=== PATIENT | female | born 1935 | race Caucasian/White ===

== ENCOUNTER 2018-11-03 14:45 | Inpatient (IN) | payer MEDICARE, OTHER ==
[~2018-11-03] VITALS: Ht 167.6 cm; Wt 50.8 kg
[~2018-11-03 14:45] MED LIST: BAYER CHEWABLE81 MG PO; HYDROCHLOROTH12.5 M1 PO; HYDROCODONE-APA1 TAB PO; MAG-OX 400 MG400 MG PO; PRINIVIL20 MG PO; REGLAN5 MG; REGLAN5 MG PO; ZOFRAN4 MG PO
[2018-11-03 15:36] LABS: BASOPHILS 0 % (0-2); EOSINOPHILS 0 % (0-7); HEMATOCRIT 30.4 % (36.0-48.0); HEMOGLOBIN 10.6 g/dL (12-16); IMMATURE GRANULOCYTES 0.5 % (0-5); LYMPHOCYTES 6.4 % (15-50); MCH 29.7 pg (26.0-34.0); MCHC 34.9 g/dL (31.0-37.0); MCV 85.2 fL (80.0-100.0); MEAN PLATELET VOLUME 10.8 fL (7.4-10.4); MONOCYTES 4.7 % (2-11); NEUTROPHILS 88.4 % (40-80); PLATELET COUNT 229 10x3/uL (130-400); RBC 3.57 10x6/uL (4.00-5.40); RDW 13.3 % (11.5-14.5)
[2018-11-03 15:57] LABS: ALBUMIN 3.2 g/dL (3.4-5.0); ANION GAP 15.5 mmol/L (8-16); BILIRUBIN - TOTAL 0.55 mg/dL (0.2-1.3); CALCIUM 8.3 mg/dL (8.5-10.1); CARBON DIOXIDE 21.4 mmol/L (21.0-32.0); CREATININE - SERUM 2.9 mg/dL (0.6-1.3); POTASSIUM - SERUM 3.9 mmol/L (3.5-5.1); PROTEIN - SERUM 5.6 g/dL (6.4-8.2)
[2018-11-03 17:36] VITALS: BP 125/56
[2018-11-03 21:01] VITALS: BP 164/70
[2018-11-04] VITALS (7 sets, daily range): BP systolic 110–179; BP diastolic 44–84
[2018-11-04 00:24] LABS: APPEARANCE CLEAR (CLEAR); BILIRUBIN NEGATIVE (NEGATIVE); COLOR YELLOW (YELLOW); GLUCOSE NEGATIVE (NEGATIVE); KETONE SMALL mg/dL (NEGATIVE); NITRITE NEGATIVE (NEGATIVE); PROTEIN NEGATIVE (NEGATIVE); UROBILINOGEN NORMAL (NORMAL)
[2018-11-04 00:25] LABS: EPITHELIAL CELLS OCC /hpf (0-5); RED CELLS - URINE 0-5 /hpf (0-5); WHITE CELLS - URINE NSEEN /hpf (0-5)
[2018-11-04 07:12] LABS: HEMATOCRIT 28.7 % (36.0-48.0); HEMOGLOBIN 9.9 g/dL (12-16); MCH 29.3 pg (26.0-34.0); MCHC 34.5 g/dL (31.0-37.0); MCV 84.9 fL (80.0-100.0); PLATELET COUNT 229 10x3/uL (130-400); RBC 3.38 10x6/uL (4.00-5.40); RDW 13.4 % (11.5-14.5); WBC 23.2 10x3/uL (4.8-10.8)
[2018-11-04 07:25] LABS: ALBUMIN 2.7 g/dL (3.4-5.0); ANION GAP 12.7 mmol/L (8-16); BILIRUBIN - TOTAL 0.36 mg/dL (0.2-1.3); CALCIUM 8.3 mg/dL (8.5-10.1); CREATININE - SERUM 2.3 mg/dL (0.6-1.3); MAGNESIUM - SERUM 1.8 mg/dL (1.8-2.4); PHOSPHOROUS 3.6 mg/dL (2.5-4.9); POTASSIUM - SERUM 3.7 mmol/L (3.5-5.1); PROTEIN - SERUM 5.1 g/dL (6.4-8.2); THYROID STIMULATING HORMONE 0.2 uIU/mL (0.36-3.74)
[2018-11-04 08:29] LABS: LYMPHOCYTES 6 % (15-50); MONOCYTES 5 % (2-11); NEUTROPHILS 89 % (40-80); PLATELET ESTIMATE NORMAL
[2018-11-04 08:30] LABS: HYPOCHROMASIA OCC
[2018-11-05] VITALS (7 sets, daily range): BP systolic 101–140; BP diastolic 44–79; BMI 18.0
[2018-11-05 06:49] LABS: BASOPHILS 0.1 % (0-2); EOSINOPHILS 0.1 % (0-7); HEMATOCRIT 23.2 % (36.0-48.0); IMMATURE GRANULOCYTES 0.6 % (0-5); LYMPHOCYTES 6.6 % (15-50); MCH 28.9 pg (26.0-34.0); MCHC 33.6 g/dL (31.0-37.0); MCV 85.9 fL (80.0-100.0); MEAN PLATELET VOLUME 10.8 fL (7.4-10.4); MONOCYTES 6.7 % (2-11); NEUTROPHILS 85.9 % (40-80); RDW 13.5 % (11.5-14.5)
[2018-11-05 06:55] LABS: WBC 13.8 10x3/uL (4.8-10.8)
[2018-11-05 06:56] LABS: HEMOGLOBIN 7.8 g/dL (12-16); PLATELET COUNT 155 10x3/uL (130-400)
[2018-11-05 07:00] LABS: ALBUMIN 2.1 g/dL (3.4-5.0); BILIRUBIN - TOTAL 0.4 mg/dL (0.2-1.3); CALCIUM 7.7 mg/dL (8.5-10.1); CARBON DIOXIDE 19.5 mmol/L (21.0-32.0); CREATININE - SERUM 1.7 mg/dL (0.6-1.3); POTASSIUM - SERUM 3.5 mmol/L (3.5-5.1)
[2018-11-05 17:45] LABS: % SATURATION 9 % (15-55); IRON 19 ug/dl (35-150); TOTAL IRON BIND CAPACITY 201 ug/dl (260-445); UNSAT IRON BIND CAPACITY 182 ug/dl (150-375)
[2018-11-06] VITALS (9 sets, daily range): BP systolic 109–164; BP diastolic 50–75; Ht 167.6 cm; Wt 50.8 kg
[2018-11-06 06:26] LABS: BASOPHILS 0.1 % (0-2); EOSINOPHILS 0.6 % (0-7); IMMATURE GRANULOCYTES 1.3 % (0-5); LYMPHOCYTES 8.9 % (15-50); MCH 30.1 pg (26.0-34.0); MCHC 34.8 g/dL (31.0-37.0); MCV 86.4 fL (80.0-100.0); MEAN PLATELET VOLUME 10.6 fL (7.4-10.4); MONOCYTES 5.9 % (2-11); NEUTROPHILS 83.2 % (40-80); PLATELET COUNT 135 10x3/uL (130-400); RDW 13.5 % (11.5-14.5)
[2018-11-06 06:58] LABS: HEMATOCRIT 33.6 % (36.0-48.0); HEMOGLOBIN 11.7 g/dL (12-16); RBC 3.89 10x6/uL (4.00-5.40)
[2018-11-06 06:59] LABS: ANION GAP 12.1 mmol/L (8-16); BILIRUBIN - TOTAL 0.81 mg/dL (0.2-1.3); CALCIUM 7.7 mg/dL (8.5-10.1); CREATININE - SERUM 1.4 mg/dL (0.6-1.3); POTASSIUM - SERUM 3.1 mmol/L (3.5-5.1); PROTEIN - SERUM 3.8 g/dL (6.4-8.2)
--- NOTE | 2018-11-06 13:21 | MORECARE ---
CASE MANAGEMENT DISCHARGE SUMMARY PATIENT: WILFRID DE LA CRUZ UNIT: [id number] ADM DATE: 11/03/18 AGE: 83 : 33 SEX: F ROOM/BED: D.2238 AUTHOR: TERRELL,DOC PHYSICIAN: REFERRING PHYSICIAN: SHALOM OGDEN MD DATE OF SERVICE: 11/06/18 Discharge Plan Patient Name: WILFRID DE LA CRUZ Facility: [facility]:[place] : 1935 Planned Disposition: Home Anticipated Discharge Date: Discharge Date: Expected LOS: Initial Reviewer: [email or web address] Initial Review Date: 11/03/2018 Generated: 11/06/18 2:21 pm Comments DCP- Discharge Planning Updated by [email or web address]: Whitley Cohen on 11/06/18 12:[address] Patient Name: WILFRID DE LA CRUZ Admission Status: Elective Accout number: [id number] Admission Date: 11-03-2018 : 1935 Admission Diagnosis:SEPSIS, UNSPECIFIED ORGANISM Attending: SHALOM OGDEN Current LOS: 3 Anticipated DC Date: Planned Disposition: Home Primary Insurance: MEDICARE A & B Discharge Planning Comments: CM MET WITH PT AFTER OBTAINING VERBAL CONSENT TO DO CM ASSESSMENT ABOUT CM ROLE AND ANY DC NEEDS.. EDUCATED PT ON ALL RESOURCES LIKE HH, REHABS, AND ANY DME THEY MIGHT NEED. DENIES ANY CM NEEDS AT THIS TIME. WILL RETURN HOME AND PT STATES THAT IS A SAFE DC PLAN. HAS WALKER AND WC IN THE HOME CM WILL CONTINUE TO FOLLOW GRAND DAUGHTER ROMÁN WILL SKEIN WINDER AT [place] [phone] Systems Developer: Whitley Cohen DCPIA - Discharge Planning Initial Assessment Updated by [email or web address]: Whitley Cohen on 11/06/18 1:14 pm * Is the patient Alert and Oriented? Yes * How many steps to enter\exit or inside your home? NA * PCP LUIS ALFREDO * Pharmacy [facility] * Preadmission Environment Home with Family * ADLs Independent * List name and contact numbers for known caregivers / representatives who currently or will assist patient after discharge: ROMÁN SINHAALYSA [phone] * Verbal permission to speak to the caregivers and representatives has been obtained from the patient. N/A * Community resources currently utilized None * Additional services required to return to the preadmission environment? No * Can the patient safely return to the preadmission environment? Yes * Has this patient been hospitalized within the prior 30 days at any hospital? No Patient Name: WILFRID DE LA CRUZ Page [phone] at 1321 All edits/amendments must be made on the electronic document DICTATION DATE: 11/06/181319 ACCELERATOR SYSTEMS DIRECTOR: OSWALD 11/06/180 RPT#: [id number] DC DATE: STATUS: ADM IN [facility] [address] [place] [address] END OF REPORT
[2018-11-07] VITALS (7 sets, daily range): BP systolic 115–179; BP diastolic 45–87
[2018-11-07 06:52] LABS: ALBUMIN 1.9 g/dL (3.4-5.0); BILIRUBIN - TOTAL 0.41 mg/dL (0.2-1.3); CALCIUM 7.6 mg/dL (8.5-10.1); CARBON DIOXIDE 20.3 mmol/L (21.0-32.0); CREATININE - SERUM 1.2 mg/dL (0.6-1.3); POTASSIUM - SERUM 3.3 mmol/L (3.5-5.1); PROTEIN - SERUM 3.9 g/dL (6.4-8.2)
[2018-11-07 07:14] LABS: BASOPHILS 0.3 % (0-2); EOSINOPHILS 1.7 % (0-7); HEMATOCRIT 33.8 % (36.0-48.0); HEMOGLOBIN 11.4 g/dL (12-16); IMMATURE GRANULOCYTES 2.4 % (0-5); LYMPHOCYTES 10.9 % (15-50); MCH 30.6 pg (26.0-34.0); MCHC 33.7 g/dL (31.0-37.0); MEAN PLATELET VOLUME 10.6 fL (7.4-10.4); MONOCYTES 7.9 % (2-11); NEUTROPHILS 76.8 % (40-80); PLATELET COUNT 121 10x3/uL (130-400); RBC 3.72 10x6/uL (4.00-5.40); RDW 14.2 % (11.5-14.5); WBC 7.5 10x3/uL (4.8-10.8)
[2018-11-07 07:20] LABS: MCV 90.9 fL (80.0-100.0)
[2018-11-07 09:14] LABS: FOLATE (FOLIC ACID) - SERUM 14.8 ng/mL (>3.0)
[2018-11-08 05:02] VITALS: BP 160/72
[2018-11-08 05:40] LABS: BASOPHILS 0.2 % (0-2); EOSINOPHILS 2.4 % (0-7); HEMATOCRIT 33.7 % (36.0-48.0); HEMOGLOBIN 11.8 g/dL (12-16); IMMATURE GRANULOCYTES 4.2 % (0-5); MCH 30.8 pg (26.0-34.0); MEAN PLATELET VOLUME 10.1 fL (7.4-10.4); MONOCYTES 10.2 % (2-11); PLATELET COUNT 130 10x3/uL (130-400); RBC 3.83 10x6/uL (4.00-5.40); WBC 5.9 10x3/uL (4.8-10.8)
[2018-11-08 05:55] LABS: ALBUMIN 2.1 g/dL (3.4-5.0); ANION GAP 12.1 mmol/L (8-16); BILIRUBIN - TOTAL 0.34 mg/dL (0.2-1.3); CALCIUM 7.9 mg/dL (8.5-10.1); CARBON DIOXIDE 20.7 mmol/L (21.0-32.0); CREATININE - SERUM 1.2 mg/dL (0.6-1.3); POTASSIUM - SERUM 3.8 mmol/L (3.5-5.1); PROTEIN - SERUM 4.8 g/dL (6.4-8.2)
[2018-11-08 09:30] VITALS: BP 192/84
[2018-11-08 12:45] VITALS: BP 167/79
[2018-11-08 17:11] VITALS: BP 170/86
[2018-11-08 20:02] VITALS: BP 180/80
[2018-11-09] VITALS: BP 158/68
[2018-11-09 04:00] VITALS: BP 127/63
[2018-11-09 06:42] LABS: ANION GAP 10.3 mmol/L (8-16); CALCIUM 7.9 mg/dL (8.5-10.1); CARBON DIOXIDE 22.7 mmol/L (21.0-32.0); CREATININE - SERUM 1.1 mg/dL (0.6-1.3)
[2018-11-09 08:40] VITALS: BP 158/64
[2018-11-09 13:16] VITALS: BP 167/64
[2018-11-09 16:53] VITALS: BP 173/74
[2018-11-09 20:00] VITALS: BP 157/75
[2018-11-10] VITALS: BP 171/89
[2018-11-10 04:00] VITALS: BP 160/80
[2018-11-10 06:34] LABS: BASOPHILS 0.1 % (0-2); EOSINOPHILS 1.1 % (0-7); HEMATOCRIT 34.3 % (36.0-48.0); HEMOGLOBIN 11.7 g/dL (12-16); IMMATURE GRANULOCYTES 2.5 % (0-5); LYMPHOCYTES 10.4 % (15-50); MCHC 34.1 g/dL (31.0-37.0); MCV 87.9 fL (80.0-100.0); MEAN PLATELET VOLUME 10.4 fL (7.4-10.4); MONOCYTES 9.9 % (2-11); PLATELET COUNT 125 10x3/uL (130-400); WBC 8.2 10x3/uL (4.8-10.8)
[2018-11-10 06:57] LABS: ALBUMIN 2.4 g/dL (3.4-5.0); ANION GAP 15.7 mmol/L (8-16); BILIRUBIN - DIRECT 0.08 mg/dL (0.00-0.30); BILIRUBIN - INDIRECT 0.24 mg/dL (0.00-1.00); BILIRUBIN - TOTAL 0.32 mg/dL (0.2-1.3); CALCIUM 8.1 mg/dL (8.5-10.1); CARBON DIOXIDE 18.6 mmol/L (21.0-32.0); POTASSIUM - SERUM 4.3 mmol/L (3.5-5.1); PROTEIN - SERUM 4.4 g/dL (6.4-8.2)
[2018-11-10 09:13] VITALS: BP 190/82
[2018-11-10 14:18] VITALS: BP 145/64
[2018-11-10 17:28] VITALS: BP 158/62
[2018-11-10 19:53] VITALS: BP 165/78
[2018-11-11] VITALS: BP 176/79
[2018-11-11 04:00] VITALS: BP 188/98
[2018-11-11 06:27] LABS: ANION GAP 13.2 mmol/L (8-16); CARBON DIOXIDE 21.1 mmol/L (21.0-32.0); CREATININE - SERUM 1.1 mg/dL (0.6-1.3); POTASSIUM - SERUM 4.3 mmol/L (3.5-5.1)
[2018-11-11 06:30] LABS: HEMATOCRIT 34.9 % (36.0-48.0); HEMOGLOBIN 11.9 g/dL (12-16); MCH 30.2 pg (26.0-34.0); MCHC 34.1 g/dL (31.0-37.0); MCV 88.6 fL (80.0-100.0); MEAN PLATELET VOLUME 9.9 fL (7.4-10.4); PLATELET COUNT 145 10x3/uL (130-400); RBC 3.94 10x6/uL (4.00-5.40); RDW 13.7 % (11.5-14.5); WBC 10.6 10x3/uL (4.8-10.8)
[2018-11-11 07:30] LABS: LYMPHOCYTES 2 % (15-50); MONOCYTES 5 % (2-11); NEUTROPHILS 85 % (40-80); PLATELET ESTIMATE NORMAL
[2018-11-11 08:45] VITALS: BP 144/61
[2018-11-11 15:23] LABS: ALBUMIN 2.6 g/dL (3.4-5.0); BILIRUBIN - TOTAL 0.32 mg/dL (0.2-1.3); CALCIUM 8.4 mg/dL (8.5-10.1); CREATININE - SERUM 1.2 mg/dL (0.6-1.3); POTASSIUM - SERUM 4.4 mmol/L (3.5-5.1); PROTEIN - SERUM 5.5 g/dL (6.4-8.2)
[2018-11-11 15:25] LABS: ANION GAP 11.7 mmol/L (8-16); CARBON DIOXIDE 27.7 mmol/L (21.0-32.0)
[2018-11-11 15:32] LABS: CKMB 0.4 U/L (0.0-3.6); CREATINE KINASE 24 UL (21-215); TROPONIN-I 0.033 ng/mL (0.000-0.060)
[2018-11-11 17:39] VITALS: BP 159/89
[2018-11-11 20:00] VITALS: BP 138/53
[2018-11-11 23:41] LABS: CKMB 0.3 U/L (0.0-3.6); CREATINE KINASE 16 UL (21-215); TROPONIN-I 0.031 ng/mL (0.000-0.060)
[2018-11-12] VITALS: BP 131/60
[2018-11-12 03:00] VITALS: BP 118/77
[2018-11-12 05:43] LABS: BASOPHILS 0.1 % (0-2); EOSINOPHILS 0.9 % (0-7); HEMATOCRIT 31.5 % (36.0-48.0); HEMOGLOBIN 10.5 g/dL (12-16); IMMATURE GRANULOCYTES 1.5 % (0-5); LYMPHOCYTES 11.8 % (15-50); MCH 30.1 pg (26.0-34.0); MCHC 33.3 g/dL (31.0-37.0); MCV 90.3 fL (80.0-100.0); MEAN PLATELET VOLUME 10.1 fL (7.4-10.4); MONOCYTES 9.9 % (2-11); NEUTROPHILS 75.8 % (40-80); PLATELET COUNT 118 10x3/uL (130-400); RBC 3.49 10x6/uL (4.00-5.40); RDW 14.2 % (11.5-14.5)
[2018-11-12 05:56] LABS: WBC 6.7 10x3/uL (4.8-10.8)
[2018-11-12 06:13] LABS: ANION GAP 9.7 mmol/L (8-16); CALCIUM 7.9 mg/dL (8.5-10.1); CARBON DIOXIDE 25.6 mmol/L (21.0-32.0); CREATININE - SERUM 1.1 mg/dL (0.6-1.3); POTASSIUM - SERUM 4.3 mmol/L (3.5-5.1)
[2018-11-12 07:38] LABS: CKMB 0.4 U/L (0.0-3.6); CREATINE KINASE 13 UL (21-215); TROPONIN-I 0.043 ng/mL (0.000-0.060)
[2018-11-12 09:10] VITALS: BP 94/55
[2018-11-12] MEDS ORDERED: FLORAJEN3 CAPS460 MG PO (11:45)
[2018-11-12] MEDS ORDERED: SODIUM BICARBO650 MG PO (11:45)
[2018-11-12] MEDS ORDERED: CARAFATE1 G PO (11:46)
[2018-11-12] MEDS ORDERED: PROTONIX40 MG PO (11:46)
[2018-11-12] MEDS ORDERED: FLAGYL500 MG PO (11:47)
[2018-11-12] MEDS ORDERED: ZOFRAN ODT4 MG/UDTAB PO (11:47)
[2018-11-12] MEDS ORDERED: Levaquin PO (11:49)
--- NOTE | 2018-11-12 12:29 | MORECARE ---
CASE MANAGEMENT DISCHARGE SUMMARY PATIENT: WILFRID DE LA CRUZ UNIT: [id number] ADM DATE: 11/03/18 AGE: 83 : 33 SEX: F ROOM/BED: D.2238 AUTHOR: TERRELL,DOC PHYSICIAN: REFERRING PHYSICIAN: SHALOM OGDEN MD DATE OF SERVICE: 11/12/18 Discharge Plan Patient Name: WILFRID DE LA CRUZ Facility: [facility]:[place] : 1935 Planned Disposition: Home Anticipated Discharge Date: Discharge Date: Expected LOS: Initial Reviewer: [email or web address] Initial Review Date: 11/03/2018 Generated: 11/12/18 1:29 pm Comments DCP- Discharge Planning Updated by [email or web address]: Darlin Henriquez on 11/12/18 11:[address] Received discharge orders. She is going home today with [facility] ([facility]). I called and spoke to Bernardo and clinical faxed. They will see her tomorrow. Patient states she does have a walker, but does not use it. I instructed her to use it for safety, voices understanding. CM will continue to follow and assist with discharge planning/needs. DCP- Discharge Planning Updated by [email or web address]: Whitley Cohen on 11/06/18 12:[address] Patient Name: WILFRID DE LA CRUZ Admission Status: Elective Accout number: [id number] Admission Date: 11-03-2018 : 1935 Admission Diagnosis:SEPSIS, UNSPECIFIED ORGANISM Attending: SHALOM OGDEN Current LOS: 3 Anticipated DC Date: Planned Disposition: Home Primary Insurance: MEDICARE A & B Discharge Planning Comments: CM MET WITH PT AFTER OBTAINING VERBAL CONSENT TO DO CM ASSESSMENT ABOUT CM ROLE AND ANY DC NEEDS.. EDUCATED PT ON ALL RESOURCES LIKE HH, REHABS, AND ANY DME THEY MIGHT NEED. DENIES ANY CM NEEDS AT THIS TIME. WILL RETURN HOME AND PT STATES THAT IS A SAFE DC PLAN. HAS WALKER AND WC IN THE HOME CM WILL CONTINUE TO FOLLOW GRAND DAUGHTER ROMÁN WILL INSULATION PACKER AT DC [phone] R D Manager: Whitley Cohen DCPIA - Discharge Planning Initial Assessment Updated by [id number]: Whitley Cohen on 11/06/18 1:14 pm * Is the patient Alert and Oriented? Yes * How many steps to enter\exit or inside your home? NA * PCP LUIS ALFREDO * Pharmacy [facility] * Preadmission Environment Home with Family * ADLs Independent * List name and contact numbers for known caregivers / representatives who currently or will assist patient after discharge: ROMÁN GABRIEL [phone] * Verbal permission to speak to the caregivers and representatives has been obtained from the patient. N/A * Community resources currently utilized None * Additional services required to return to the preadmission environment? No * Can the patient safely return to the preadmission environment? Yes * Has this patient been hospitalized within the prior 30 days at any hospital? No Coverage Notice Reviewer: [email or web address] Henriquez Notice Issued Date-Time: 11/12/2018 12:15 Notice Type: IM Discharge Notice Notice Delivered To: Patient Relationship to Patient: Self Boatbuilder Apprentice Wood Name: Delivery Method: HAND - Hand Delivered Deanna Days: Prior Verbal Notification: Recipient Understood Notice: Yes Recipient Signature: Yes Med Rec Note Co-signed by Attending: Coverage Notice Comment: IMM explained, signed, given, copy placed in MR Reviewer: [id number] Eyad Henriquez Notice Issued Date-Time: 11/12/2018 12:15 Notice Type: Patient Choice Letter Notice Delivered To: Patient Relationship to Patient: Boatbuilder Apprentice Wood Name: Delivery Method: HAND - Hand Delivered Deanna Days: Prior Verbal Notification: Recipient Understood Notice: Yes Recipient Signature: Yes Med Rec Note Co-signed by Attending: Coverage Notice Comment: CAITLIN for [facility] Last DP export: 11/06/18 12:21 pm Patient Name: WILFRID DE LA CRUZ Page [phone] at 1229 All edits/amendments must be made on the electronic document DICTATION DATE: 11/12/18 1228 PRESCRIPTIONIST: OSWALD 11/12/18 1228 RPT#: [id number] DC DATE: STATUS: ADM IN [facility] [address] [place] [address] END OF REPORT
--- NOTE | 2018-11-12 12:37 | MORECARE ---
CASE MANAGEMENT DISCHARGE SUMMARY PATIENT: WILFRID DE LA CRUZ UNIT: [id number] ADM DATE: 11/03/18 AGE: 83 : 33 SEX: F ROOM/BED: D.2238 AUTHOR: TERRELL,DOC PHYSICIAN: REFERRING PHYSICIAN: SHALOM OGDEN MD DATE OF SERVICE: 11/12/18 Discharge Plan Patient Name: WILFRID DE LA CRUZ Facility: [facility]:[place] : 1935 Planned Disposition: Home Anticipated Discharge Date: Discharge Date: Expected LOS: Initial Reviewer: [id number] Initial Review Date: 11/03/2018 Generated: 11/12/18 1:37 pm Comments DCP- Discharge Planning Updated by [email or web address]: Darlin Henriquez on 11/12/18 11:[address] Received discharge orders. She is going home today with [facility] ([facility]). I called and spoke to Bernardo and clinical faxed. They will see her tomorrow. Patient states she does have a walker, but does not use it. I instructed her to use it for safety, voices understanding. CM will continue to follow and assist with discharge planning/needs. DCP- Discharge Planning Updated by [id number]: Whitley Cohen on 11/06/18 12:[address] Patient Name: WILFRID DE LA CRUZ Admission Status: Elective Accout number: [id number] Admission Date: 11-03-2018 : 1935 Admission Diagnosis:SEPSIS, UNSPECIFIED ORGANISM Attending: SHALOM OGDEN Current LOS: 3 Anticipated DC Date: Planned Disposition: Home Primary Insurance: MEDICARE A & B Discharge Planning Comments: CM MET WITH PT AFTER OBTAINING VERBAL CONSENT TO DO CM ASSESSMENT ABOUT CM ROLE AND ANY DC NEEDS.. EDUCATED PT ON ALL RESOURCES LIKE HH, REHABS, AND ANY DME THEY MIGHT NEED. DENIES ANY CM NEEDS AT THIS TIME. WILL RETURN HOME AND PT STATES THAT IS A SAFE DC PLAN. HAS WALKER AND WC IN THE HOME CM WILL CONTINUE TO FOLLOW GRAND DAUGHTER ROMÁN WILL DRESSAGE JUDGE AT DC [phone] Technical Photographer: Whitley Cohen DCPIA - Discharge Planning Initial Assessment Updated by [id number]: Whitley Cohen on 11/06/18 1:14 pm * Is the patient Alert and Oriented? Yes * How many steps to enter\exit or inside your home? NA * PCP LUIS ALFREDO * Pharmacy [facility] * Preadmission Environment Home with Family * ADLs Independent * List name and contact numbers for known caregivers / representatives who currently or will assist patient after discharge: ROMÁN GABRIEL [phone] * Verbal permission to speak to the caregivers and representatives has been obtained from the patient. N/A * Community resources currently utilized None * Additional services required to return to the preadmission environment? No * Can the patient safely return to the preadmission environment? Yes * Has this patient been hospitalized within the prior 30 days at any hospital? No External Providers [facility] Next Contact Date: Service Request Date: Service Type: Resolution: Reviewer: Comments: Coverage Notice Reviewer: [id number] Henriquez Notice Issued Date-Time: 11/12/2018 12:15 Notice Type: IM Discharge Notice Notice Delivered To: Patient Relationship to Patient: Self Customer Service Sales Associate Name: Delivery Method: HAND - Hand Delivered Deanna Days: Prior Verbal Notification: Recipient Understood Notice: Yes Recipient Signature: Yes Med Rec Note Co-signed by Attending: Coverage Notice Comment: IMM explained, signed, given, copy placed in MR Reviewer: [id number] Eyad Henriquez Notice Issued Date-Time: 11/12/2018 12:15 Notice Type: Patient Choice Letter Notice Delivered To: Patient Relationship to Patient: Customer Service Sales Associate Name: Delivery Method: HAND - Hand Delivered Deanna Days: Prior Verbal Notification: Recipient Understood Notice: Yes Recipient Signature: Yes Med Rec Note Co-signed by Attending: Coverage Notice Comment: CAITLIN for [facility] Last DP export: 11/12/18 11:29 a Patient Name: WILFRID DE LA CRUZ Page [phone] at 1237 All edits/amendments must be made on the electronic document DICTATION DATE: 11/12/18 1236 OCCUPATIONAL HEALTH PHYSIOTHERAPIST: OSWALD 11/12/18 1236 RPT#: [id number] [place] DATE: STATUS: ADM IN [facility] [address] [place] [address] END OF REPORT
--- NOTE | 2018-11-13 10:10 | MORECARE ---
CASE MANAGEMENT DISCHARGE SUMMARY PATIENT: WILFRID DE LA CRUZ UNIT: [id number] ADM DATE: 11/03/18 AGE: 83 : 33 SEX: F ROOM/BED: D.2238 AUTHOR: TERRELL,DOC PHYSICIAN: REFERRING PHYSICIAN: SHALOM OGDEN MD DATE OF SERVICE: 11/13/18 Discharge Plan Patient Name: WILFRID DE LA CRUZ Facility: [facility]:[place] : 1935 Planned Disposition: Home Anticipated Discharge Date: Discharge Date: 11/12/2018 Expected LOS: 0 Initial Reviewer: [id number] Initial Review Date: 11/03/2018 Generated: 11/13/18 11:09 am Comments DCP- Discharge Planning Updated by [email or web address]: Darlin Henriquez on 11/12/18 11:[address] Received discharge orders. She is going home today with [facility] ([facility]). I called and spoke to Bernardo and clinical faxed. They will see her tomorrow. Patient states she does have a walker, but does not use it. I instructed her to use it for safety, voices understanding. CM will continue to follow and assist with discharge planning/needs. DCP- Discharge Planning Updated by [id number]: Whitley Cohen on 11/06/18 12:[address] Patient Name: WILFRID DE LA CRUZ Admission Status: Elective Accout number: [id number] Admission Date: 11-03-2018 : 1935 Admission Diagnosis:SEPSIS, UNSPECIFIED ORGANISM Attending: SHALOM OGDEN Current LOS: 3 Anticipated DC Date: Planned Disposition: Home Primary Insurance: MEDICARE A & B Discharge Planning Comments: CM MET WITH PT AFTER OBTAINING VERBAL CONSENT TO DO CM ASSESSMENT ABOUT CM ROLE AND ANY DC NEEDS.. EDUCATED PT ON ALL RESOURCES LIKE HH, REHABS, AND ANY DME THEY MIGHT NEED. DENIES ANY CM NEEDS AT THIS TIME. WILL RETURN HOME AND PT STATES THAT IS A SAFE DC PLAN. HAS WALKER AND WC IN THE HOME CM WILL CONTINUE TO FOLLOW GRAND DAUGHTER ROMÁN WILL NEWS PRODUCTION ASSISTANT AT DC [phone] Pharmaceutical Officer: Whitley Cohen DCPIA - Discharge Planning Initial Assessment Updated by [id number]: Whitley Cohen on 11/06/18 1:14 pm * Is the patient Alert and Oriented? Yes * How many steps to enter\exit or inside your home? NA * PCP [facility] ALFREDO * Pharmacy [facility] * Preadmission Environment Home with Family * ADLs Independent * List name and contact numbers for known caregivers / representatives who currently or will assist patient after discharge: ROMÁN GABRIEL [phone] * Verbal permission to speak to the caregivers and representatives has been obtained from the patient. N/A * Community resources currently utilized None * Additional services required to return to the preadmission environment? No * Can the patient safely return to the preadmission environment? Yes * Has this patient been hospitalized within the prior 30 days at any hospital? No Coverage Notice Reviewer: [id number] Eyad Henriquez Notice Issued Date-Time: 11/12/2018 12:15 Notice Type: IM Discharge Notice Notice Delivered To: Patient Relationship to Patient: Self Financial Aids Officer Name: Delivery Method: HAND - Hand Delivered Deanna Days: Prior Verbal Notification: Recipient Understood Notice: Yes Recipient Signature: Yes Med Rec Note Co-signed by Attending: Coverage Notice Comment: IMM explained, signed, given, copy placed in MR Reviewer: [id number] Henriquez Notice Issued Date-Time: 11/12/2018 12:15 Notice Type: Patient Choice Letter Notice Delivered To: Patient Relationship to Patient: Financial Aids Officer Name: Delivery Method: HAND - Hand Delivered Deanna Days: Prior Verbal Notification: Recipient Understood Notice: Yes Recipient Signature: Yes Med Rec Note Co-signed by Attending: Coverage Notice Comment: CAITLIN for [facility] Last DP export: 11/12/18 11:37 a Patient Name: WILFRID DE LA CRUZ Page [phone] at 1010 All edits/amendments must be made on the electronic document DICTATION DATE: 11/13/18 1009 SAFETY TEACHER: OSWALD 11/13/18 1009 RPT#: [id number] DC DATE:11/12/18 STATUS: DIS IN [facility] [address] [facility] [place] [address] END OF REPORT
== END 2018-11-12 15:15 | disposition home health service (06) | DRG 871 ==
LOC: D.MS 14:45
PROVIDERS: Internal Medicine Nephrology; ADMIT Family Medicine; ATTEND Family Medicine
DX: A41.9 Sepsis, unspecified organism (principal); K85.90 Acute pancreatitis without necrosis or infection, unspecified; E43 Unspecified severe protein-calorie malnutrition; N17.9 Acute kidney failure, unspecified; R11.2 Nausea with vomiting, unspecified; I12.9 Hypertensive chronic kidney disease with stage 1 through stage 4 chronic kidney disease, or unspecified chronic kidney disease; N18.9 Chronic kidney disease, unspecified; K43.5 Parastomal hernia without obstruction or gangrene

== ENCOUNTER 2019-05-18 11:03 | Inpatient (IN) | payer MEDICARE, OTHER ==
[~2019-05-18] VITALS: Ht 167.6 cm; Wt 44.9 kg
[~2019-05-18 11:03] MED LIST changes: +CARAFATE1 G PO; +FLAGYL500 MG PO; +FLORAJEN3 CAPS460 MG PO; +Levaquin PO; +PROTONIX40 MG PO; +SODIUM BICARBO650 MG PO; +ZOFRAN ODT4 MG/UDTAB PO
[2019-05-18 11:42] LABS: BASOPHILS 0.1 % (0-2); EOSINOPHILS 0.2 % (0-7); HEMATOCRIT 41.9 % (36.0-48.0); IMMATURE GRANULOCYTES 0.7 % (0-5); LYMPHOCYTES 10.9 % (15-50); MCH 31.3 pg (26.0-34.0); MCHC 33.4 g/dL (31.0-37.0); MCV 93.5 fL (80.0-100.0); MEAN PLATELET VOLUME 10.4 fL (7.4-10.4); NEUTROPHILS 84.1 % (40-80); RBC 4.48 10x6/uL (4.00-5.40); RDW 13.9 % (11.5-14.5); WBC 9.5 10x3/uL (4.8-10.8)
[2019-05-18 11:48] LABS: PLATELET COUNT 162 10x3/uL (130-400)
[2019-05-18 12:11] LABS: ALBUMIN 3.8 g/dL (3.4-5.0); ANION GAP 23.1 mmol/L (8-16); BILIRUBIN - TOTAL 0.42 mg/dL (0.2-1.3); CALCIUM 8.6 mg/dL (8.5-10.1); CARBON DIOXIDE 13.5 mmol/L (21.0-32.0); CREATININE - SERUM 4.4 mg/dL (0.6-1.3); MAGNESIUM - SERUM 1.6 mg/dL (1.8-2.4); PROTEIN - SERUM 7.5 g/dL (6.4-8.2)
[2019-05-18 12:15] LABS: POTASSIUM - SERUM 2.6 mmol/L (3.5-5.1)
[2019-05-18 12:33] VITALS: BP 146/71
--- NOTE | 2019-05-18 12:57 | NUR ---
PT COLOSTOMY BAG LEAKING, PT CLEANED UP, NEW WAFER AND BAG APPLIED TO COLOSTOMY, CLEAN LINENS AND GOWN APPLIED, DENIES NEEDS, CON'T TO MONITOR.
[2019-05-18 13:09] VITALS: BP 130/60
--- NOTE | 2019-05-18 13:31 | NUR ---
RECEIVED REPORT FROM LUCAS IN ER AT THIS TIME. PATIENT TO UNIT SOON.
--- NOTE | 2019-05-18 13:45 | NUR ---
PATIENT ARRIVED TO UNIT VIA [facility], PATIENTS DAUGHTER AND GRANDDAUGHTER AT BEDSIDE. PATIENT IS ALERT/ORIENTED BUT IS A POOR HISTORIAN. PATIENT WITH IV FLUIDS AT 125ML/HOUR ORDERED TO RIGHT FA. RESP EVEN AND UNLABORED. NO DISTRESS. DENIES NEEDS AT THIS TIME.
[2019-05-18] MEDS ORDERED: REMERON15 MG PO (14:02)
--- NOTE | 2019-05-18 14:30 | NUR ---
ADMISSION ASSESSMENT COMPLETE AT THIS TIME.
--- NOTE | 2019-05-18 15:50 | NUR ---
ELECTROLYTE PROTOCOL INITIATED ON PATIENT FOR LOW K+ AFTER SPEAKING TO CHANA IN PHARMACY AND QUESTIONING HER RECEIVING ELEC. PROTOCOL AND RECEIVING THE IV FLUIDS HANGING THAT HAVE 40 MEQ OF K+ IN THEM. PER PHARMACY, IT IS SAFE FOR PATIENT TO RECEIVE BOTH TO GET HER K+ LEVEL WHERE IS NEEDS TO BE. THANKED CHANA FOR HIS ASSSISTANCE WITH THIS.
[2019-05-18 16:44] VITALS: BP 130/54
[2019-05-18 16:52] VITALS: BP 130/54; BMI 16.1
--- NOTE | 2019-05-18 19:15 | NUR ---
RECEIVED REPORT, WILL ASSUME CARE OF PT, SLEEPING NO DISTRESS NOTICED, BED IS LOW, SRX2, CALL LIGHT IN REACH, WILL CONTINUE PLAN OF CARE
[2019-05-18 20:00] VITALS: BP 106/47
[2019-05-19] VITALS: BP 104/46
[2019-05-19 04:00] VITALS: BP 106/49
[2019-05-19 05:45] LABS: APPEARANCE CLEAR (CLEAR); BILIRUBIN NEGATIVE (NEGATIVE); COLOR YELLOW (YELLOW); GLUCOSE NEGATIVE (NEGATIVE); KETONE NEGATIVE (NEGATIVE); NITRITE NEGATIVE (NEGATIVE); PROTEIN NEGATIVE (NEGATIVE); UROBILINOGEN NORMAL (NORMAL)
[2019-05-19 05:50] LABS: BASOPHILS 0.2 % (0-2); EOSINOPHILS 1.2 % (0-7); IMMATURE GRANULOCYTES 0.2 % (0-5); LYMPHOCYTES 27.1 % (15-50); MCH 30.3 pg (26.0-34.0); MCHC 32.9 g/dL (31.0-37.0); MONOCYTES 7.8 % (2-11); NEUTROPHILS 63.5 % (40-80); PLATELET COUNT 141 10x3/uL (130-400); RDW 13.7 % (11.5-14.5)
[2019-05-19 06:06] LABS: WBC 5.1 10x3/uL (4.8-10.8)
[2019-05-19 06:07] LABS: HEMATOCRIT 30.1 % (36.0-48.0); HEMOGLOBIN 9.9 g/dL (12-16); RBC 3.27 10x6/uL (4.00-5.40)
[2019-05-19 06:12] LABS: BILIRUBIN - TOTAL 0.31 mg/dL (0.2-1.3); CALCIUM 7.3 mg/dL (8.5-10.1); MAGNESIUM - SERUM 3.3 mg/dL (1.8-2.4); POTASSIUM - SERUM 4.7 mmol/L (3.5-5.1)
[2019-05-19 06:13] LABS: ALBUMIN 2.3 g/dL (3.4-5.0); ANION GAP 16.5 mmol/L (8-16); CARBON DIOXIDE 18.2 mmol/L (21.0-32.0); PROTEIN - SERUM 4.6 g/dL (6.4-8.2)
--- NOTE | 2019-05-19 07:38 | NUR ---
PATIENT IS RESTING AT THIS TIME. AWAKE AND ALERT AND RESTING ON HER SIDE. DENIES ANY NEEDS AT THIS TIME.
[2019-05-19 09:00] VITALS: BP 108/50
--- NOTE | 2019-05-19 10:43 | NUR ---
CHANGING IV FLUIDS TO 1/2 NS ORDERED
[2019-05-19 12:00] VITALS: BP 181/78
--- NOTE | 2019-05-19 13:53 | NUR ---
PATIENT IS SITTING UP IN BED. SHE STATES THAT SHE WOULD LIKE TO GO HOME SOON. SHE DENIES ANY NEEDS AT THIS TIME.
[2019-05-19 18:11] VITALS: BP 124/53
--- NOTE | 2019-05-19 19:15 | NUR ---
RECEIVED REPORT, WILL ASSUME CARE OF PT, TALKING ON PHONE, DENIES ANY NEEDS, BED IS LOW, SRX2, CALL LIGHT IN REACH, WILL CONTINUE PLAN OF CARE
[2019-05-19 20:00] VITALS: BP 135/58
[2019-05-20] VITALS: BP 99/44
--- NOTE | 2019-05-20 03:59 | NUR ---
I have reviewed this patient and I concur with the Shift Assessment completed by the Licensed Practical Nurse today this shift.
[2019-05-20 04:00] VITALS: BP 116/51
[2019-05-20 05:27] LABS: BASOPHILS 0.2 % (0-2); EOSINOPHILS 1.6 % (0-7); HEMATOCRIT 32.6 % (36.0-48.0); HEMOGLOBIN 10.8 g/dL (12-16); IMMATURE GRANULOCYTES 0.6 % (0-5); LYMPHOCYTES 22.4 % (15-50); MCH 30.8 pg (26.0-34.0); MCHC 33.1 g/dL (31.0-37.0); MCV 92.9 fL (80.0-100.0); MEAN PLATELET VOLUME 10.7 fL (7.4-10.4); MONOCYTES 7.5 % (2-11); NEUTROPHILS 67.7 % (40-80); PLATELET COUNT 144 10x3/uL (130-400); RBC 3.51 10x6/uL (4.00-5.40); RDW 14.1 % (11.5-14.5); WBC 5.1 10x3/uL (4.8-10.8)
[2019-05-20 06:40] LABS: ALBUMIN 2.7 g/dL (3.4-5.0); BILIRUBIN - TOTAL 0.23 mg/dL (0.2-1.3); CALCIUM 7.8 mg/dL (8.5-10.1); CARBON DIOXIDE 16.8 mmol/L (21.0-32.0); CREATININE - SERUM 2.7 mg/dL (0.6-1.3); PROTEIN - SERUM 5.1 g/dL (6.4-8.2)
[2019-05-20 07:14] LABS: POTASSIUM - SERUM 2.8 mmol/L (3.5-5.1)
--- NOTE | 2019-05-20 07:30 | NUR ---
PT SITTING UP. RR EVEN AND UNLABORED. DENIES NEEDS OR PAIN AT THIS TIME. ASSESSMENT COMPLETE. BED IN LOWEST POSITION. CALL LIGHT WITHIN REACH. WILL CONTINUE TO MONITOR.
[2019-05-20 11:13] VITALS: BP 135/63
--- NOTE | 2019-05-20 12:33 | NUR ---
I have reviewed this patient and I concur with the Shift Assessment completed by the Licensed Practical Nurse today this shift.
[2019-05-20 14:57] VITALS: BP 149/68
[2019-05-20 15:15] VITALS: BMI 15.9
[2019-05-20 17:33] VITALS: BP 138/66
--- NOTE | 2019-05-20 17:42 | NUR ---
OT NOTE: PT COMPLETED UE AROM EXS. PT COMPLETED BED MOB TASKS WITH SPV/I. PT COMPLETED FACE WASHING WITH SET UP. THANK YOU,AYSHA SNEED
[2019-05-20 20:34] VITALS: BP 110/56
[2019-05-21 01:10] VITALS: BP 128/63
[2019-05-21 05:30] LABS: BASOPHILS 0.2 % (0-2); EOSINOPHILS 1.9 % (0-7); HEMATOCRIT 31.1 % (36.0-48.0); HEMOGLOBIN 10.2 g/dL (12-16); IMMATURE GRANULOCYTES 0.4 % (0-5); LYMPHOCYTES 24.6 % (15-50); MCH 30.6 pg (26.0-34.0); MCHC 32.8 g/dL (31.0-37.0); MCV 93.4 fL (80.0-100.0); MEAN PLATELET VOLUME 10.5 fL (7.4-10.4); MONOCYTES 6.2 % (2-11); NEUTROPHILS 66.7 % (40-80); PLATELET COUNT 149 10x3/uL (130-400); RBC 3.33 10x6/uL (4.00-5.40); WBC 5.3 10x3/uL (4.8-10.8)
[2019-05-21 05:32] LABS: ALBUMIN 2.3 g/dL (3.4-5.0); ANION GAP 17.6 mmol/L (8-16); BILIRUBIN - TOTAL 0.28 mg/dL (0.2-1.3); CALCIUM 7.7 mg/dL (8.5-10.1); CARBON DIOXIDE 16.5 mmol/L (21.0-32.0); CREATININE - SERUM 2.7 mg/dL (0.6-1.3); POTASSIUM - SERUM 3.1 mmol/L (3.5-5.1); PROTEIN - SERUM 4.7 g/dL (6.4-8.2)
[2019-05-21 05:58] VITALS: BP 124/57
--- NOTE | 2019-05-21 06:01 | NUR ---
I have reviewed this patient and I concur with the Shift Assessment completed by the Licensed Practical Nurse today this shift.
--- NOTE | 2019-05-21 07:31 | NUR ---
PATIENT IS RESING AT THIS TIME. DENIES ANY NEEDS.
[2019-05-21 09:31] VITALS: BP 126/62
--- NOTE | 2019-05-21 10:54 | NUR ---
PATIENT IS SITTING UP IN BED, LOOKING AT MAGAZINES AND TALKING ON THE PHONE. SHE DENIES ANY NEEDS AT THIS TIME.
[2019-05-21 12:00] VITALS: BP 126/61
[2019-05-21 15:05] VITALS: Ht 167.6 cm; Wt 44.9 kg
[2019-05-21 16:00] VITALS: BP 130/65
--- NOTE | 2019-05-21 16:50 | NUR ---
OT NOTE: PT DOING WELL; IN ROOM AMBULATION WITH SBA. ABLE TO PERFORM TOILETING AND SIMPLE GROOMING WITH SBA. JIM GASPAR, OTR/L
--- NOTE | 2019-05-21 18:36 | NUR ---
OT NOTE: PT COMPLETED BED MOB WITH SBA. PT COMPLETED ADL MOB WITH SBA/CGA. PT COMPLETED ORAL HYGIENE WITH SET UP. PT COMPLETED HAIR GROOMING WITH SET UP. THANK YOU, AYSHA SNEED
[2019-05-21 18:41] LABS: MAGNESIUM - SERUM 1.9 mg/dL (1.8-2.4); POTASSIUM - SERUM 3.4 mmol/L (3.5-5.1)
[2019-05-21 20:00] VITALS: BP 122/55
[2019-05-22] VITALS: BP 127/64
--- NOTE | 2019-05-22 03:19 | NUR ---
I have reviewed this patient and I concur with the Shift Assessment completed by the Licensed Practical Nurse today this shift.
[2019-05-22 04:00] VITALS: BP 114/56
--- NOTE | 2019-05-22 06:26 | NUR ---
IV RESITED TO LEFT FOREARM, 20 GUAGE, FIRST ATTEMPT, PT TOLERATED WELL. IV FLUIDS RESUMED.
[2019-05-22 06:54] LABS: BASOPHILS 0.2 % (0-2); EOSINOPHILS 2.9 % (0-7); HEMATOCRIT 32.5 % (36.0-48.0); HEMOGLOBIN 10.5 g/dL (12-16); IMMATURE GRANULOCYTES 0.6 % (0-5); MCH 30.5 pg (26.0-34.0); MCHC 32.3 g/dL (31.0-37.0); MCV 94.5 fL (80.0-100.0); MONOCYTES 7.4 % (2-11); NEUTROPHILS 64.9 % (40-80); PLATELET COUNT 130 10x3/uL (130-400); RBC 3.44 10x6/uL (4.00-5.40); RDW 14.1 % (11.5-14.5); WBC 5.1 10x3/uL (4.8-10.8)
--- NOTE | 2019-05-22 07:10 | NUR ---
REPORT RECEIVED FROM DROP MACHINE OPERATOR AND PATIENT CARE ASSUMED. PATIENT LAYING IN BED ON BACK WITH EYES CLOSED AND BREATHING EVENLY. PATIENT IS STABLE AND VSS. WILL CONTINUE WITH PLAN OF CARE. SR UP X 2 BED IN LOW POSITION AND CALL LIGHT IN REACH.
[2019-05-22 07:17] LABS: ALBUMIN 2.2 g/dL (3.4-5.0); ANION GAP 14.3 mmol/L (8-16); BILIRUBIN - TOTAL 0.24 mg/dL (0.2-1.3); CALCIUM 7.7 mg/dL (8.5-10.1); CARBON DIOXIDE 18.1 mmol/L (21.0-32.0); MAGNESIUM - SERUM 1.6 mg/dL (1.8-2.4); POTASSIUM - SERUM 3.4 mmol/L (3.5-5.1); PROTEIN - SERUM 4.6 g/dL (6.4-8.2)
[2019-05-22 07:18] LABS: CREATININE - SERUM 1.9 mg/dL (0.6-1.3)
[2019-05-22 09:55] VITALS: BP 127/58
--- NOTE | 2019-05-22 10:36 | NUR ---
PATIENT SITTING UP IN BED WATCHING TV. PATIENT IS STABLE AND VSS. PATIENT DENIES ANY NEEDS OR PAIN. WILL CONTINUE TO MONITOR. SR UP X 2 BED IN LOW POSITION AND CALL LIGHT IN REACH.
--- NOTE | 2019-05-22 11:18 | MORECARE ---
CASE MANAGEMENT DISCHARGE SUMMARY PATIENT: WILFRID DE LA CRUZ UNIT: [id number] ADM DATE: 05/18/19 AGE: 83 : 33 SEX: F ROOM/BED: D.2131 AUTHOR: ROSIE TEJADA PHYSICIAN: REFERRING PHYSICIAN: ANTOINETTE JOHNSTON MD DATE OF SERVICE: 05/22/19 Discharge Plan Patient Name: WILFRID DE LA CRUZ [facility] [facility] 1935 Planned Disposition: Home Health Service Anticipated Discharge Date: 05/24/19 Discharge Date: Expected LOS: 6 Initial Reviewer: [email or web address] Initial Review Date: 05/18/2019 Generated: 05/22/19 12:18 pm DCPIA - Discharge Planning Initial Assessment Updated by [id number]: eKlli Wadsworth on 05/22/19 11:15 am * Is the patient Alert and Oriented? Yes * How many steps to enter\exit or inside your home? None * PCP Dr. Bueno * [facility] * Preadmission Environment Home with Family * ADLs Independent * Equipment Bedside Commode Cane Rolling Walker Wheelchair * List name and contact numbers for known caregivers / representatives who currently or will assist patient after discharge: Myrna George - daughter - [phone] * Verbal permission to speak to the caregivers and representatives has been obtained from the patient. Yes * Community resources currently utilized None * Additional services required to return to the preadmission environment? Yes * Can the patient safely return to the preadmission environment? Yes * Has this patient been hospitalized within the prior 30 days at any hospital? No Patient Name: WILFRID DE LA CRUZ Page 40811 at 1118 All edits/amendments must be made on the electronic document DICTATION DATE: 05/22/191117 RADIO MAINTAINER: OSWALD 05/22/191117 RPT#: [id number] DC DATE: STATUS: ADM IN [facility] [address] [place] [address] END OF REPORT
--- NOTE | 2019-05-22 11:25 | MORECARE ---
CASE MANAGEMENT DISCHARGE SUMMARY PATIENT: WILFRID DE LA CRUZ UNIT: [id number] ADM DATE: 05/18/19 AGE: 83 : 33 SEX: F ROOM/BED: D.9756 AUTHOR: TERRELLDOC PHYSICIAN: REFERRING PHYSICIAN: ANTOINETTE JOHNSTON MD DATE OF SERVICE: 05/22/19 Discharge Plan Patient Name: WILFRID DE LA CRUZ Facility: [facility]:[place] : 1935 Planned Disposition: Home Health Service Anticipated Discharge Date: 05/24/19 Discharge Date: Expected LOS: 6 Initial Reviewer: [id number] Initial Review Date: 05/18/2019 Generated: 05/22/19 12:25 pm Comments DCP- Discharge Planning Updated by [email or web address]: Kelli Wadsworth on 05/22/19 10:[address] DC PLAN: Return home with family and [facility] [place]. ANTICIPATED DC NEEDS: [facility]erral to [facility] - completed. CM met with patient to complete initial dc planning assessment. CM educated patient on the CM role and verbal consent given by patient to complete assessment. CM verified patient's address, phone number, and emergency contact phone numbers. Patient lives at home and her granddaughter and her 2 kids live with her. At discharge patient plans to return home and feels this is a safe discharge. CM discussed availability of home health, rehab services, and medical equipment. Patient stated she has had home health out of [facility] in the past and would like HH again. Order received for home health services. CM provided patient a list of home health agencies . She would like to use [facility] as she has had them in the past. Patient signed the patient choice form with their first choice being [facility]. CM left a signed copy of the choice form with the patient and placed a signed copy on the patient's chart. CM spoke to [facility] and faxed referral to their office. Patient reports her daughter will transport her home at time of discharge. CM will continue to follow and will assist as needed with dc plans/needs . Kelli aWdsworth RN, [facility] DCPIA - Discharge Planning Initial Assessment Updated by [email or web address]: Kelli Wadsworth on 05/22/19 11:15 am * Is the patient Alert and Oriented? Yes * How many steps to enter\exit or inside your home? None * PCP Dr. Bueno * Pharmacy [facility] * Preadmission Environment Home with Family * ADLs Independent * Equipment Bedside Commode Cane Rolling Walker Wheelchair * List name and contact numbers for known caregivers / representatives who currently or will assist patient after discharge: Myrna George - daughter - [phone] * Verbal permission to speak to the caregivers and representatives has been obtained from the patient. Yes * Community resources currently utilized None * Additional services required to return to the preadmission environment? Yes * Can the patient safely return to the preadmission environment? Yes * Has this patient been hospitalized within the prior 30 days at any hospital? No External Providers External Provider: [facility] Next Contact Date: Service Request Date: Service Type: Resolution: Reviewer: Comments: Last DP export: 05/22/19 10:18 Patient Name: WILFRID DE LA CRUZ Page [phone] at 1125 All edits/amendments must be made on the electronic document DICTATION DATE: 05/22/19 112 FITNESS AND WELLNESS COORDINATOR: OSWALD 05/22/19 112 RPT#: [id number] DC DATE: STATUS: ADM IN [facility] [address] [place] [address] END OF REPORT
[2019-05-22 13:34] VITALS: BP 150/70
--- NOTE | 2019-05-22 14:56 | NUR ---
OT NOTE: PT DOING WELL. BED MOB WITH SPV; IN ROOM AMBULATION WITH SPV..PT ALSO ABLE TO MANAGE HER IV POLE. TOILETING WITH SPV. PT WANTING TO GO HOME. STATES THAT SHE FEELS BETTER BUT WOULD FEEL EVEN BETTER BEING AT HOME. JIM GASPAR, OTR/L
--- NOTE | 2019-05-22 15:12 | NUR ---
PATIENT IS STABLE AND UNCHANGED. PATIENT SITTING UP IN BED WATCHING TV. PATIENT DENIES ANY NEEDS OR PAIN . WILL CONTINUE TO MONITOR. SR UP X 2 BED IN LOW POSITION AND CALL LIGHT IN REACH.
--- NOTE | 2019-05-22 15:33 | NUR ---
OT NOTE: PT COMPLETED IN ROOM MOB WITH SBA/CGA. PT COMPLETED DYNAMIC STANDING WITH SBA/CGA. PT COMPLETED GROOMING TASKS STANDING AT SINK WITH SBA. THANK YOU, AYSHA SNEED
[2019-05-22 17:30] VITALS: BP 116/58
--- NOTE | 2019-05-22 18:24 | NUR ---
PATIENT LAYING IN BED ON BACK WITH HOB ELEVATED 20 DEGREES. PATIENT VISITING WITH FAMILY AT BS. PATIENT IS STABLE AND VSS. PATIENT DENIES ANY NEEDS OR PAIN. WILL CONTINUE TO MONITOR. SR UP X 2 BED IN LOW POSITION AND CALL LIGHT IN REACH.
[2019-05-22 20:00] VITALS: BP 143/60
[2019-05-23 04:00] VITALS: BP 139/58
[2019-05-23 05:47] LABS: BASOPHILS 0.1 % (0-2); EOSINOPHILS 0.9 % (0-7); HEMATOCRIT 32.8 % (36.0-48.0); HEMOGLOBIN 10.6 g/dL (12-16); IMMATURE GRANULOCYTES 0.6 % (0-5); LYMPHOCYTES 11.7 % (15-50); MCH 30.5 pg (26.0-34.0); MCHC 32.3 g/dL (31.0-37.0); MCV 94.5 fL (80.0-100.0); MEAN PLATELET VOLUME 10.5 fL (7.4-10.4); MONOCYTES 6.6 % (2-11); NEUTROPHILS 80.1 % (40-80); PLATELET COUNT 152 10x3/uL (130-400); RBC 3.47 10x6/uL (4.00-5.40); RDW 13.9 % (11.5-14.5)
[2019-05-23 06:26] LABS: ALBUMIN 2.5 g/dL (3.4-5.0); ANION GAP 13.5 mmol/L (8-16); BILIRUBIN - TOTAL 0.31 mg/dL (0.2-1.3); CARBON DIOXIDE 19.8 mmol/L (21.0-32.0); MAGNESIUM - SERUM 1.7 mg/dL (1.8-2.4); POTASSIUM - SERUM 3.3 mmol/L (3.5-5.1); PROTEIN - SERUM 5.2 g/dL (6.4-8.2)
--- NOTE | 2019-05-23 07:53 | NUR ---
PT RESTING. RR EVEN AND UNLABORED. DENIES NEEDS OR PAIN AT THIS TIME. BED IN LOWEST POSITION. CALL LIGHT WITHIN REACH. WILL CONTINUE TO MONITOR.
[2019-05-23 08:00] VITALS: BP 159/67
[2019-05-23 11:01] LABS: % SATURATION 22 % (15-55); IRON 47 ug/dl (35-150); TOTAL IRON BIND CAPACITY 207 ug/dl (260-445); UNSAT IRON BIND CAPACITY 160 ug/dl (150-375)
[2019-05-23 11:31] LABS: PHOSPHOROUS 2.7 mg/dL (2.5-4.9); T4 THYROXIN - FREE 0.87 ng/dL (0.76-1.46); THYROID STIMULATING HORMONE 1.79 uIU/mL (0.36-3.74)
[2019-05-23 12:00] VITALS: BP 158/85
--- NOTE | 2019-05-23 13:25 | NUR ---
Nutrition Follow-up: Eating well. Noted possible d/c today. Diet: Renal PO intake: 75-100% No new wt Last BM: 05/22 Labs noted: K+ 3.3, Mg 1.7, Ca 8.0, Alb 2.5 Meds noted: MagOx, Remeron, KDur, Pepcid -Rec cardiac diet. -RD following.
[2019-05-23] MEDS ORDERED: K-DUR20 MEQ PO (14:37)
[2019-05-23] MEDS ORDERED: MAG-OX 400 MG400 MG PO (14:37)
[2019-05-23] MEDS ORDERED: PROTONIX40 MG PO (14:39)
--- NOTE | 2019-05-23 14:46 | NUR ---
OT NOTE: PT PERFORMING ALL ADLS WITHOUT ASSIST; AMB INDEP TO BATHROOM, CHAIR, ETC. WILL DC PT ON THIS DATE SECONDARY TO CONSISTENT INDEP WITH SELF CARE/MOBILITY. JIM GASPAR, OTR/L
--- NOTE | 2019-05-23 14:46 | NUR ---
OT NOTE: PT COMPLETED GROOMING TASKS WITH SPV. PT COMPLETED ADL MOB AND SIT TO STAND WITH SBA. THANK YOU,AYSHA SNEED
[2019-05-23] MEDS ORDERED: HEMOCYTE PLUS C1 CAP PO (15:12)
--- NOTE | 2019-05-23 15:36 | MORECARE ---
CASE MANAGEMENT DISCHARGE SUMMARY PATIENT: WILFRID DE LA CRUZ UNIT: [id number] ADM DATE: 05/18/19 AGE: 83 : 33 SEX: F ROOM/BED: D.8152 AUTHOR: TERRELLDOC PHYSICIAN: REFERRING PHYSICIAN: ANTOINETTE JOHNSTON MD DATE OF SERVICE: 05/23/19 Discharge Plan Patient Name: WILFRID DE LA CRUZ Facility: [facility]:[place] : 1935 Planned Disposition: Home Health Service Anticipated Discharge Date: 05/23/19 Discharge Date: Expected LOS: 5 Initial Reviewer: [email or web address] Initial Review Date: 05/18/2019 Generated: 05/23/19 4:35 pm Comments DCP- Discharge Planning Updated by [email or web address]: Kelli Wadsworth on 05/22/19 10:[address] DC PLAN: Return home with family and [facility] out of [place]. ANTICIPATED DC NEEDS: Referral to [facility] - completed. CM met with patient to complete initial dc planning assessment. CM educated patient on the CM role and verbal consent given by patient to complete assessment. CM verified patient's address, phone number, and emergency contact phone numbers. Patient lives at home and her granddaughter and her 2 kids live with her. At discharge patient plans to return home and feels this is a safe discharge. CM discussed availability of home health, rehab services, and medical equipment. Patient stated she has had home health out of [place] in the past and would like HH again. Order received for home health services. CM provided patient a list of home health agencies . She would like to use [facility] as she has had them in the past. Patient signed the patient choice form with their first choice being [facility]. CM left a signed copy of the choice form with the patient and placed a signed copy on the patient's chart. CM spoke to [facility] and faxed referral to their office. Patient reports her daughter will transport her home at time of discharge. CM will continue to follow and will assist as needed with dc plans/needs . Kelli Wadsworth RN, [facility] DCPIA - Discharge Planning Initial Assessment Updated by [email or web address]: Kelli Wadsworth on 05/22/19 11:15 am * Is the patient Alert and Oriented? Yes * How many steps to enter\exit or inside your home? None * PCP Dr. Bueno * Pharmacy [facility] * Preadmission Environment Home with Family * ADLs Independent * Equipment Bedside Commode Cane Rolling Walker Wheelchair * List name and contact numbers for known caregivers / representatives who currently or will assist patient after discharge: Myrna George - daughter - [phone] * Verbal permission to speak to the caregivers and representatives has been obtained from the patient. Yes * Community resources currently utilized None * Additional services required to return to the preadmission environment? Yes * Can the patient safely return to the preadmission environment? Yes * Has this patient been hospitalized within the prior 30 days at any hospital? No External Providers External Provider: [facility] Next Contact Date: 05/22/2019 Service Request Date: Service Type: Resolution: Reviewer: Comments: Last DP export: 05/22/19 10:25 Patient Name: WILFRID DE LA CRUZ Page [id number] at 1536 All edits/amendments must be made on the electronic document DICTATION DATE: 05/23/19 1535 BUSINESS PARTNER: OSWALD 05/23/19 1535 RPT#: [id number] DC DATE: STATUS: ADM IN [facility] [address] [place] [address] END OF REPORT
--- NOTE | 2019-05-23 15:54 | MORECARE ---
CASE MANAGEMENT DISCHARGE SUMMARY PATIENT: WILFRID DE LA CRUZ UNIT: [id number] ADM DATE: 05/18/19 AGE: 83 : 33 SEX: F ROOM/BED: D.1678 AUTHOR: TERRELL,DOC PHYSICIAN: REFERRING PHYSICIAN: ANTOINETTE JOHNSTON MD DATE OF SERVICE: 05/23/19 Discharge Plan Patient Name: WILFRID DE LA CRUZ Facility: [facility]:[place] : 1935 Planned Disposition: Home Health Service Anticipated Discharge Date: 05/23/19 Discharge Date: Expected LOS: 5 Initial Reviewer: [email or web address] Initial Review Date: 05/18/2019 Generated: 05/23/19 4:54 pm Comments DCP- Discharge Planning Updated by [email or web address]: Rafa Guy on 05/23/19 2:[address] Patient Name: WILFRID DE LA CRUZ Encounter No: [id number] : 1935 Primary Insurance: MEDICARE A & B Anticipated DC Date: 05-23-2019 Planned Disposition: Home Health Service External Planned Provider: [facility] DCP follow-up note: CM RECEIVED DISCHARGE ORDER, CALLED [facility], ENTRIKEN OFFICE, , SPOKE TO [facility] AND NOTIFIED OF DISCHARGE. PT ACCEPTED FOR HOME HEALTH ADMISSION. CM FAXED DISCHARGE INFORMATION TO [facility] AT [phone]. CM SPOKE TO PT IN ROOM REGARDING DISCHARGE PLANNING AND NEEDS, DISCUSSED AVAILABIILTY OF REHAB SERVICES AND MEDICAL EQUIPMENT. PT DENIES OTHER NEEDS AND ONLY WANTS HOME HEALTH WITH [facility]. PT'S FAMILY TO DIRECTOR WHOLESALE PT LATER THIS AFTERNOON. IMPORTANT MESSAGE FROM MEDICARE PROVIDED AND EXPLAINED. SECURITY SYSTEMS ENGINEER NURSE NOTIFIED. JENELLE West DCP- Discharge Planning Updated by [email or web address]: Kelli Wadsworth on 05/22/19 10:[address] DC PLAN: Return home with family and [facility] out of [place]. ANTICIPATED DC NEEDS: Referral to [facility] - completed. CM met with patient to complete initial dc planning assessment. CM educated patient on the CM role and verbal consent given by patient to complete assessment. CM verified patient's address, phone number, and emergency contact phone numbers. Patient lives at home and her granddaughter and her 2 kids live with her. At discharge patient plans to return home and feels this is a safe discharge. CM discussed availability of home health, rehab services, and medical equipment. Patient stated she has had home health out of [place] in the past and would like again. Order received for home health services. CM provided patient a list of home health agencies . She would like to use [facility] as she has had them in the past. Patient signed the patient choice form with their first choice being [facility] . CM left a signed copy of the choice form with the patient and placed a signed copy on the patient's chart. CM spoke to [employer] and faxed referral to their office. Patient reports her daughter will transport her home at time of discharge. CM will continue to follow and will assist as needed with dc plans/needs . Kelli Wadsworth RN, [facility] DCPIA - Discharge Planning Initial Assessment Updated by [email or web address]: Kelli Wadsworth on 05/22/19 11:15 am * Is the patient Alert and Oriented? Yes * How many steps to enter\exit or inside your home? None * PCP Dr. Bueno * Pharmacy [facility] * Preadmission Environment Home with Family * ADLs Independent * Equipment Bedside Commode Cane Rolling Walker Wheelchair * List name and contact numbers for known caregivers / representatives who currently or will assist patient after discharge: Myrna George - daughter - [phone] * Verbal permission to speak to the caregivers and representatives has been obtained from the patient. Yes * Community resources currently utilized None * Additional services required to return to the preadmission environment? Yes * Can the patient safely return to the preadmission environment? Yes * Has this patient been hospitalized within the prior 30 days at any hospital? No Coverage Notice Reviewer: [id number] - Rafa Guy Notice Issued Date-Time: 05/23/2019 14:50 Notice Type: IM Discharge Notice Notice Delivered To: Patient Relationship to Patient: Hand Molder Meat Name: Delivery Method: HAND - Hand Delivered Deanna Days: Prior Verbal Notification: Recipient Understood Notice: Yes Recipient Signature: Yes Med Rec Note Co-signed by Attending: Coverage Notice Comment: Last DP export: 05/23/19 2:35 Patient Name: WILFRID DE LA CRUZ Page [phone] at 1554 All edits/amendments must be made on the electronic document DICTATION DATE: 05/23/191553 WRONG ADDRESS CLERK: OSWALD 05/23/191553 RPT#: [id number] DC DATE: STATUS: ADM IN [facility] [address] [place] [address] END OF REPORT
--- NOTE | 2019-05-23 16:56 | NUR ---
D/C INSTRUCTIONS REVIEWED WITH PT AND FAMILY MEMBER. BOTH VERBALIZED UNDERSTANDING AND DENIED FURTHER QUESTIONS AT THIS TIME. IV D/C WITH CATHETER TIP INTACT. DRESSING PLACED OVER SITE, CDI. MONITOR REMOVED AND RETURNED TO BLOOD TESTER. PT LEFT VIA WHEELCHAIR TO PERSONAL VEHICLE WITH ALL BELONGINGS.
--- NOTE | 2019-05-23 17:27 | NUR ---
I have reviewed this patient and I concur with the Shift Assessment completed by the Licensed Practical Nurse today this shift.
== END 2019-05-23 17:35 | disposition home health service (06) | DRG 682 ==
LOC: D.ER 11:03 → D.M2 12:31
PROVIDERS: Family Medicine; Internal Medicine; ADMIT Internal Medicine Nephrology; ATTEND Internal Medicine Nephrology
DX: N17.9 Acute kidney failure, unspecified (principal); E43 Unspecified severe protein-calorie malnutrition; Z68.1 Body mass index [BMI] 19.9 or less, adult; E87.6 Hypokalemia; E83.42 Hypomagnesemia; E86.0 Dehydration; I12.9 Hypertensive chronic kidney disease with stage 1 through stage 4 chronic kidney disease, or unspecified chronic kidney disease; N18.9 Chronic kidney disease, unspecified; D63.1 Anemia in chronic kidney disease

== ENCOUNTER 2019-07-01 10:36 | Outpatient (CLI) | payer MEDICARE ==
[~2019-07-01] VITALS: Ht 167.6 cm; Wt 45.5 kg
[~2019-07-01 10:36] MED LIST changes: +HEMOCYTE PLUS C1 CAP PO; +K-DUR20 MEQ PO; +REMERON15 MG PO
[2019-07-01 11:08] VITALS: Ht 167.6 cm; Wt 45.5 kg
--- NOTE | 2019-07-01 13:24 | NUR ---
PT IS RESTING QUIETLY IN BED. DENIES PAIN/NEEDS AT THIS TIME. INCREASED INFUSION RATE TO 250 ML/HR PER ORDER. WILL CONTINUE TO MONITOR.
--- NOTE | 2019-07-01 17:37 | NUR ---
PT IS RESTING QUIETLY IN BED. DENIES PAIN/NEEDS AT THIS TIME. WILL CONTINUE TO MONITOR.
--- NOTE | 2019-07-01 18:01 | NUR ---
PT LEFT UNIT AMBULATING W/ YANET AT 1801
== END 2019-07-01 18:01 | disposition home or self-care (01) ==
LOC: D.OPS 10:36
PROVIDERS: ATTEND Internal Medicine
DX: N18.5 Chronic kidney disease, stage 5 (principal); E86.9 Volume depletion, unspecified; E87.2 Acidosis

== ENCOUNTER 2020-02-22 16:05 | Inpatient (IN) | payer MEDICARE ==
[~2020-02-22] VITALS: Ht 167.6 cm; Wt 44.5 kg
[2020-02-22 17:05] LABS: BASOPHILS 0.1 % (0-2); EOSINOPHILS 0.1 % (0-7); HEMOGLOBIN 12.5 g/dL (12-16); IMMATURE GRANULOCYTES 0.5 % (0-5); LYMPHOCYTES 3.8 % (15-50); MCH 29.7 pg (26.0-34.0); MCHC 34.7 g/dL (31.0-37.0); MCV 85.5 fL (80.0-100.0); MEAN PLATELET VOLUME 11.4 fL (7.4-10.4); MONOCYTES 4.6 % (2-11); NEUTROPHILS 90.9 % (40-80); PLATELET COUNT 178 10x3/uL (130-400); RBC 4.21 10x6/uL (4.00-5.40); RDW 14.9 % (11.5-14.5)
[2020-02-22 17:12] LABS: ALBUMIN 3.4 g/dL (3.4-5.0); BILIRUBIN - TOTAL 0.65 mg/dL (0.2-1.3); CARBON DIOXIDE 13.1 mmol/L (21.0-32.0); CREATININE - SERUM 5.6 mg/dL (0.6-1.3); PROTEIN - SERUM 6.8 g/dL (6.4-8.2)
[2020-02-22 17:15] LABS: CALCIUM 6.5 mg/dL (8.5-10.1); POTASSIUM - SERUM 2.1 mmol/L (3.5-5.1)
[2020-02-22 17:18] VITALS: BP 164/91
[2020-02-22 17:46] LABS: BILIRUBIN NEGATIVE (NEGATIVE); KETONE NEGATIVE (NEGATIVE); NITRITE NEGATIVE (NEGATIVE); UROBILINOGEN NORMAL (NORMAL)
[2020-02-22 17:48] LABS: BACTERIA FEW /hpf (NEGATIVE); RED CELLS - URINE OCC /hpf (0-5); WHITE CELLS - URINE RARE /hpf (NEGATIVE)
--- NOTE | 2020-02-22 18:15 | NUR ---
PT'S FAMILY MEMBER TO CONTACT [phone]
[2020-02-22 18:57] VITALS: BP 138/54
[2020-02-22 21:21] VITALS: BP 150/90
--- NOTE | 2020-02-22 21:56 | NUR ---
RECEIVED TO ROOM VIA [facility] FROM ER. ALERT,ORIENTED. IV TO RFA INTACT WITHOUT REDNESS OR EDEMA NOTED. ABRAISION TO LEFT SHOULDER WITH BANDAID INTACT. COLOSTOMY TO MID ABD WITH APPLIANCE INTACT. REDNESS NOTED ABOVE SITE. ORIENTED TO ROOM. CL IN REACH. SOLANGE RAZA ON FOR DAVID
[2020-02-22 22:07] VITALS: BP 156/71; BMI 15.8
[2020-02-23 00:10] VITALS: BP 114/49
--- NOTE | 2020-02-23 02:38 | NUR ---
I have reviewed this patient and I concur with the Shift Assessment completed by the Licensed Practical Nurse today this shift.
[2020-02-23 03:17] LABS: BASOPHILS 0.1 % (0-2); EOSINOPHILS 0.1 % (0-7); HEMATOCRIT 32.8 % (36.0-48.0); HEMOGLOBIN 11.3 g/dL (12-16); IMMATURE GRANULOCYTES 0.5 % (0-5); LYMPHOCYTES 5.3 % (15-50); MCH 29.2 pg (26.0-34.0); MCHC 34.5 g/dL (31.0-37.0); MCV 84.8 fL (80.0-100.0); MEAN PLATELET VOLUME 10.3 fL (7.4-10.4); MONOCYTES 3.4 % (2-11); NEUTROPHILS 90.6 % (40-80); PLATELET COUNT 165 10x3/uL (130-400); RBC 3.87 10x6/uL (4.00-5.40); RDW 14.6 % (11.5-14.5)
[2020-02-23 03:23] LABS: APTT 32.7 SECONDS (22.8-39.4); INR 1.13 (0.85-1.17); PROTIME 14.5 SECONDS (11.6-15.0)
[2020-02-23 03:43] LABS: ALBUMIN 2.9 g/dL (3.4-5.0); ALKALINE PHOSPHATASE 77 U/L (30-120); ALT (SGPT) 13 U/L (10-68); BILIRUBIN - TOTAL 0.55 mg/dL (0.2-1.3); CALC OSMOLALITY 292 mosm/kg (275-300); CARBON DIOXIDE 10.4 mmol/L (21.0-32.0); CHLORIDE - SERUM 102 mmol/L (98-107); CKMB 2.5 U/L (0.0-3.6); CREATINE KINASE 58 UL (21-215); GLUCOSE 126 mg/dL (74-106); SODIUM 134 mmol/L (136-145); UREA NITROGEN 78 mg/dL (7-18); eGFR NON AFRICAN AMERICAN 9 mL/min (90-120)
[2020-02-23 03:45] LABS: CALCIUM 6.7 mg/dL (8.5-10.1); POTASSIUM - SERUM 2.3 mmol/L (3.5-5.1)
[2020-02-23 04:30] VITALS: BP 147/54
[2020-02-23 09:49] VITALS: BP 131/63
--- NOTE | 2020-02-23 12:01 | NUR ---
PT ALERT X 4. BREATH SOUNDS CLEAR BILAT. IV TO RIGHT FOREARM, PATENT, DRESSING CDI. ASSISTED PT TO RESTROOM, UNSTEADY. REDDENED AREA TO COCCYX. PT REPORTING NO PAIN AT THIS TIME. BED LOW, CALL LIGHT IN REACH. NO OTHER NEEDS AT THIS TIME.
[2020-02-23 12:15] VITALS: BP 140/70
[2020-02-23 15:21] LABS: MAGNESIUM - SERUM 2.7 mg/dL (1.8-2.4)
[2020-02-23 15:22] LABS: POTASSIUM - SERUM 2.5 mmol/L (3.5-5.1)
[2020-02-23 17:21] VITALS: BP 139/79
[2020-02-23 17:31] LABS: CALCIUM 7.2 mg/dL (8.5-10.1); CREATININE - SERUM 4.2 mg/dL (0.6-1.3)
[2020-02-23 17:34] LABS: ANION GAP 19.8 mmol/L (8-16); CARBON DIOXIDE 13.8 mmol/L (21.0-32.0); POTASSIUM - SERUM 2.6 mmol/L (3.5-5.1)
[2020-02-23 20:00] VITALS: BP 141/63
[2020-02-24 00:05] VITALS: BP 94/55
[2020-02-24 04:30] VITALS: BP 106/67
--- NOTE | 2020-02-24 05:08 | NUR ---
I have reviewed this patient and I concur with the Shift Assessment completed by the Licensed Practical Nurse today this shift.
[2020-02-24 05:18] LABS: BASOPHILS 0.1 % (0-2); EOSINOPHILS 0.1 % (0-7); HEMATOCRIT 33.9 % (36.0-48.0); HEMOGLOBIN 11.6 g/dL (12-16); IMMATURE GRANULOCYTES 0.4 % (0-5); MCHC 34.2 g/dL (31.0-37.0); MCV 84.8 fL (80.0-100.0); MEAN PLATELET VOLUME 10.6 fL (7.4-10.4); NEUTROPHILS 90.4 % (40-80); PLATELET COUNT 187 10x3/uL (130-400); RDW 14.4 % (11.5-14.5); WBC 11.8 10x3/uL (4.8-10.8)
[2020-02-24 05:45] LABS: ALBUMIN 2.6 g/dL (3.4-5.0); ANION GAP 20.7 mmol/L (8-16); BILIRUBIN - TOTAL 0.61 mg/dL (0.2-1.3); CALCIUM 7.1 mg/dL (8.5-10.1); CARBON DIOXIDE 12.1 mmol/L (21.0-32.0); CREATININE - SERUM 4.5 mg/dL (0.6-1.3); PROTEIN - SERUM 5.7 g/dL (6.4-8.2)
[2020-02-24 05:59] LABS: POTASSIUM - SERUM 2.8 mmol/L (3.5-5.1)
--- NOTE | 2020-02-24 07:00 | NUR ---
AWAKE AND ALERT. ORIENTED X3. FOUND WITH STOOL ALL OVER FLOOR. COLOSTOMY IS PATENT. IV OUT WITH CATHETER INTACT.
--- NOTE | 2020-02-24 08:38 | NUR ---
ROUSES TO VERBAL STIMULATION. ORIENTED X3. LUNGS ARE CLEAR BILATERALLY, NO COUGH NOTED. SKIN IS INTACT WITHOUT REDNESS. IV TO RIGHT FOREARM IS PATENT WITHOUT REDNESS AT INSERTION SITE. COLOSTOMY PATENT WITH LOOSE STOOL. STOMA IS PINK AND VIABLE. NO NEEDS NOTED.
[2020-02-24 08:44] VITALS: BP 133/66
--- NOTE | 2020-02-24 09:00 | NUR ---
HAD A LARGE VOLUMN OF EMESIS ON FLOOR. DR. LORENZO HERE AT THIS TIME. SKIN CARE PER STAFF. DENIES NAUSEA AT THIS TIME.
--- NOTE | 2020-02-24 10:14 | NUR ---
REQUESTED AND GIVEN 4MG ZOFRAN SLOW IVP FOR C/O NAUSEA. WILL MONITOR. REFUSED TO TAKE AM MEDS AT THIS TIME. WILL TRY LATER.
--- NOTE | 2020-02-24 12:00 | NUR ---
IV TO RIGHT FOREARM LEAKING. RESITED TO LEFT FA/WRIST AREA AFTER 4 ATTEMPTS PER STAFF. OLD IV D/C WITH CATHETER INTACT. NO FURTHER NEEDS NOTED.
[2020-02-24 12:35] VITALS: BMI 15.8
[2020-02-24 13:30] VITALS: BP 124/74
--- NOTE | 2020-02-24 14:05 | NUR ---
RESTING QUIETLY AT THIS TIME. DENIES NEEDS.
[2020-02-24 17:37] VITALS: BP 121/59
[2020-02-24 18:00] VITALS: Ht 167.6 cm; Wt 44.5 kg
--- NOTE | 2020-02-24 18:49 | NUR ---
AWAKE AND ALERT. REPORTED EATING MOST OF SUPPER. DR. MCMILLAN HERE. NEW ORDERS FOR CT OF ABDOMEN RECEIVED. NO CHANGES NOTED. DENIES NEEDS.
[2020-02-24 18:58] LABS: ANION GAP 18.7 mmol/L (8-16); CALCIUM 7.8 mg/dL (8.5-10.1); CARBON DIOXIDE 14.1 mmol/L (21.0-32.0); CREATININE - SERUM 4.7 mg/dL (0.6-1.3); MAGNESIUM - SERUM 2.2 mg/dL (1.8-2.4); POTASSIUM - SERUM 3.8 mmol/L (3.5-5.1)
[2020-02-24 20:00] VITALS: BP 134/62
--- NOTE | 2020-02-24 20:46 | NUR ---
PT WAS GIVEN ORAL CONTRAST @1830 AND INSTRUCTED TO DRINK ALL THE CONTENTS FOR HER CT EXAM. WHEN PT WAS BROUGHT DOWN NO CONTRAST HAD BEEN DRANK. SCAN WAS SUBMITTED TO RADIOLOGIST CT ABD/PEL WITHOUT CONTRAST TO BE READ DUE TO PT NOT DRINKING ORAL CONTRAST.
[2020-02-25] VITALS: BP 148/66
[2020-02-25 04:00] VITALS: BP 126/62
[2020-02-25 05:43] LABS: BASOPHILS 0.1 % (0-2); EOSINOPHILS 0.1 % (0-7); HEMATOCRIT 31.1 % (36.0-48.0); HEMOGLOBIN 10.9 g/dL (12-16); IMMATURE GRANULOCYTES 0.5 % (0-5); LYMPHOCYTES 2.8 % (15-50); MCH 29.1 pg (26.0-34.0); MCV 83.2 fL (80.0-100.0); MEAN PLATELET VOLUME 10.8 fL (7.4-10.4); MONOCYTES 2.1 % (2-11); NEUTROPHILS 94.4 % (40-80); PLATELET COUNT 211 10x3/uL (130-400); RBC 3.74 10x6/uL (4.00-5.40); RDW 14.2 % (11.5-14.5)
[2020-02-25 06:17] LABS: ALBUMIN 2.4 g/dL (3.4-5.0); BILIRUBIN - TOTAL 0.62 mg/dL (0.2-1.3); CALCIUM 7.6 mg/dL (8.5-10.1); CARBON DIOXIDE 16.6 mmol/L (21.0-32.0); CREATININE - SERUM 4.6 mg/dL (0.6-1.3); POTASSIUM - SERUM 3.6 mmol/L (3.5-5.1); PROTEIN - SERUM 5.3 g/dL (6.4-8.2)
[2020-02-25 06:26] LABS: WBC 17.8 10x3/uL (4.8-10.8)
--- NOTE | 2020-02-25 10:01 | NUR ---
I EMPTIED HER OSTOMY. SHE IS CONFUSED. SHE HAS BROKEN SKIN ON HER COCCYX. IT LOOKS LIKE A BALL OF SKIN ON HER COCCYX. IT IS RED. THE CALL LIGHT IS WITHIN REACH AND THE BED ALARM IS ON.
[2020-02-25 10:04] VITALS: BP 109/49
[2020-02-25 13:46] VITALS: BP 111/53
[2020-02-25 18:33] VITALS: BP 86/65
[2020-02-25 20:00] VITALS: BP 103/50
[2020-02-26] VITALS: BP 76/35
[2020-02-26 04:00] VITALS: BP 91/47
[2020-02-26 06:14] LABS: BASOPHILS 0.1 % (0-2); EOSINOPHILS 0.1 % (0-7); HEMATOCRIT 25.7 % (36.0-48.0); IMMATURE GRANULOCYTES 0.4 % (0-5); LYMPHOCYTES 2.1 % (15-50); MCH 28.4 pg (26.0-34.0); MCHC 33.9 g/dL (31.0-37.0); MEAN PLATELET VOLUME 10.7 fL (7.4-10.4); MONOCYTES 3.4 % (2-11); NEUTROPHILS 93.9 % (40-80); RBC 3.06 10x6/uL (4.00-5.40); RDW 14.3 % (11.5-14.5); WBC 15.8 10x3/uL (4.8-10.8)
[2020-02-26 06:15] LABS: HEMOGLOBIN 8.7 g/dL (12-16); PLATELET COUNT 168 10x3/uL (130-400)
[2020-02-26 07:31] LABS: BILIRUBIN - TOTAL 0.36 mg/dL (0.2-1.3); CREATININE - SERUM 4.3 mg/dL (0.6-1.3); MAGNESIUM - SERUM 1.7 mg/dL (1.8-2.4); PHOSPHOROUS 4.4 mg/dL (2.5-4.9); POTASSIUM - SERUM 3.2 mmol/L (3.5-5.1)
--- NOTE | 2020-02-26 07:33 | NUR ---
RESTING IN BED WITH NO S/S OF DISTRESS AT THIS TIME. 24 RAYMOND IV TO LEFT FOREARM WITH NS. BEDALARM. COSTOMY CHANGED THIS SHIFT. JILLIAN GIVEN.
[2020-02-26 07:49] LABS: ANION GAP 14.1 mmol/L (8-16); CARBON DIOXIDE 23.1 mmol/L (21.0-32.0)
[2020-02-26 07:52] LABS: CALCIUM 6.8 mg/dL (8.5-10.1)
--- NOTE | 2020-02-26 08:00 | NUR ---
SHE IS CONFUSED, THE BED ALARM IS ON AND THE CALL LIGHT IS WITHIN REACH.
[2020-02-26 09:55] VITALS: BP 103/47
--- NOTE | 2020-02-26 12:50 | NUR ---
Nutrition follow-up: Pt sleeping at time of RDN visit; noted speech path reports pt not safe for po intake due to lethargy. Surgeon has advanced to clears with advance to regular as tolerated. Labs reviewed Will need to place PEG tube for nutrition support if po diet unable to begin/advance. Discuced pt in todays IDT meeting. RDN following.
[2020-02-26 13:46] VITALS: BP 106/47
[2020-02-26 18:10] VITALS: BP 115/49
[2020-02-26 20:00] VITALS: BP 105/46
[2020-02-27] VITALS: BP 98/43
[2020-02-27 04:00] VITALS: BP 91/47
[2020-02-27 08:08] LABS: BASOPHILS 0.1 % (0-2); EOSINOPHILS 0.5 % (0-7); IMMATURE GRANULOCYTES 0.4 % (0-5); LYMPHOCYTES 2.6 % (15-50); MCH 28.7 pg (26.0-34.0); MCHC 32.9 g/dL (31.0-37.0); MEAN PLATELET VOLUME 10.4 fL (7.4-10.4); MONOCYTES 3.6 % (2-11); NEUTROPHILS 92.8 % (40-80); PLATELET COUNT 164 10x3/uL (130-400); RDW 14.2 % (11.5-14.5)
[2020-02-27 08:13] LABS: HEMATOCRIT 32.2 % (36.0-48.0); HEMOGLOBIN 10.6 g/dL (12-16); MCV 87.3 fL (80.0-100.0); RBC 3.69 10x6/uL (4.00-5.40); WBC 11.6 10x3/uL (4.8-10.8)
--- NOTE | 2020-02-27 08:25 | NUR ---
AWAKE AND ALERT. ORIENTED X3. NO C/O AT THIS TIME. LUNGS ARE CLEAR BILATERALLY, OCCASSIONAL DRY COUGH NOTED. SKIN IS INTACT WITHOUT REDNESS. IV TO LEFT FOREARM IS PATENT WITHOUT REDNESS AT INSERTION SITE. DENIES NEEDS.
[2020-02-27 08:31] LABS: ALBUMIN 2.1 g/dL (3.4-5.0); ANION GAP 13.8 mmol/L (8-16); BILIRUBIN - TOTAL 0.39 mg/dL (0.2-1.3); CALCIUM 7.5 mg/dL (8.5-10.1); CREATININE - SERUM 3.3 mg/dL (0.6-1.3); MAGNESIUM - SERUM 1.5 mg/dL (1.8-2.4); POTASSIUM - SERUM 3.5 mmol/L (3.5-5.1); PROTEIN - SERUM 4.5 g/dL (6.4-8.2)
[2020-02-27 08:35] LABS: CARBON DIOXIDE 31.7 mmol/L (21.0-32.0); PHOSPHOROUS 2.7 mg/dL (2.5-4.9)
[2020-02-27 09:12] VITALS: BP 123/50
--- NOTE | 2020-02-27 10:00 | NUR ---
RESTING QUIETLY IN BED WITH EYES CLOSED. NO NEEDS NOTED.
--- NOTE | 2020-02-27 12:30 | NUR ---
LUNCH SERVED IN ROOM. FEEDS SELF WITH SOME SET UP ASSISTAN CE.
[2020-02-27 13:02] VITALS: BP 125/53
[2020-02-27 17:22] VITALS: BP 107/54
--- NOTE | 2020-02-27 19:18 | NUR ---
ATE ONLY A FEW BITES OF SUPPER TRAY. NO CHANGES NOTED. DENIES NEEDS.
[2020-02-27 20:00] VITALS: BP 117/58
[2020-02-28] VITALS: BP 118/58
--- NOTE | 2020-02-28 03:15 | NUR ---
ASSESSED AT THE BEGINNING OF THE SHIFT. PT IS ALERT AND CONFUSED, ABLE TO USE CALL LIGHT. SHE IS GETTING UP TO BS WITH ASSIST FOR VOIDING AND HAS A COLOSTOMY. WE REDID THE COLOSTOMY AT MED TIME BECAUSE IT WAS LEAKING AND HAVE EMPTIED IT ONCE ALREADY OF LIQUID BROWN STOOL. AT THIS TIME SHE IS ASLEEP WITH NO DISTRESS NOTED.
[2020-02-28 04:00] VITALS: BP 97/57
[2020-02-28 06:46] LABS: BASOPHILS 0.1 % (0-2); EOSINOPHILS 1.8 % (0-7); HEMATOCRIT 28.1 % (36.0-48.0); HEMOGLOBIN 8.9 g/dL (12-16); IMMATURE GRANULOCYTES 0.4 % (0-5); LYMPHOCYTES 8.5 % (15-50); MCH 28.3 pg (26.0-34.0); MCHC 31.7 g/dL (31.0-37.0); MEAN PLATELET VOLUME 11.1 fL (7.4-10.4); MONOCYTES 6.4 % (2-11); NEUTROPHILS 82.8 % (40-80); PLATELET COUNT 168 10x3/uL (130-400); RBC 3.14 10x6/uL (4.00-5.40); RDW 14.1 % (11.5-14.5)
[2020-02-28 06:48] LABS: MCV 89.5 fL (80.0-100.0); WBC 7.8 10x3/uL (4.8-10.8)
[2020-02-28 07:04] LABS: ALBUMIN 1.8 g/dL (3.4-5.0); ANION GAP 8.2 mmol/L (8-16); BILIRUBIN - TOTAL 0.36 mg/dL (0.2-1.3); CALCIUM 7.2 mg/dL (8.5-10.1); CARBON DIOXIDE 31.2 mmol/L (21.0-32.0); CREATININE - SERUM 2.8 mg/dL (0.6-1.3); PHOSPHOROUS 2.2 mg/dL (2.5-4.9); POTASSIUM - SERUM 3.4 mmol/L (3.5-5.1); PROTEIN - SERUM 4.4 g/dL (6.4-8.2)
[2020-02-28 08:42] VITALS: BP 144/75
--- NOTE | 2020-02-28 14:20 | NUR ---
NUTRITION FOLLOW UP: COMMENTS: Patient asleep during visit. Patient's po intake has been improving. DIET: Regular Diet PO INTAKE: 30% avg x last 9 meals WEIGHT: 02/23- 98 lbs BM: Ostomy OP- 700 cc on 02/26 SIG LABS: BUN-49(H), Cr-2.8(H), Ca-7.2(L), Phos-2.2(L), Mag-1.2(L), Albumin-1.8(L) SIG MEDS: KCl, Mag Ox, Protonix, Na Bicarb, KPhos, Mag Sulf, Zofran RECOMMENDATIONS: -Continue Regular Diet as tolerated -Will Add Nutritional supplements to help provide extra nutrients -Encourage high [employer] RD to continue to follow and monitor patient DHS
--- NOTE | 2020-02-28 16:22 | NUR ---
Rehab Note- Acute Inpatient Rehab prescreen order received. The patient has [employer] insurance and will require a PreAUth. Have initiated and faxed medical record for clinical review to [facility] on behalf of [facility]. Will await determination at this time for possible acute rehab auth. Thank you for this referral! Mala Cruz RN Clinical Liaison, [facility]
--- NOTE | 2020-02-28 16:45 | NUR ---
OT NOTE: PT COMPLETED UB HYGIENE TASKS WITH MIN A. PT COMPLETED BED MOB WITH MIN A. 120-144 THANK YOU,AYSHA SNEED
[2020-02-29 04:00] VITALS: BP 116/54
[2020-02-29 07:57] LABS: ANION GAP 11.1 mmol/L (8-16); CALCIUM 7.6 mg/dL (8.5-10.1); CARBON DIOXIDE 27.3 mmol/L (21.0-32.0); CREATININE - SERUM 2.7 mg/dL (0.6-1.3); POTASSIUM - SERUM 4.4 mmol/L (3.5-5.1)
[2020-02-29 09:02] VITALS: BP 114/58
[2020-02-29 14:53] VITALS: BP 125/60
[2020-02-29 18:06] VITALS: BP 119/62
[2020-02-29 20:00] VITALS: BP 116/45
[2020-03-01 00:01] VITALS: BP 125/52
--- NOTE | 2020-03-01 02:27 | NUR ---
RECIEVED UP IN BED WITH EYES OPEN AND TV ON. ALERT AND ORIENTED. NO IV ATR THIS TIME. TELEMETRY IN PLACE. COLOSTOMY HAS LIQUID LIGHT BROWN STOOL . BUTTOCKS DIEGO AND HAS WHITNEY SIZE OUTPOUCHING ON SIDE OF RECTUM. DENIES ANY NEEDS AT THIS TIME.
[2020-03-01 04:00] VITALS: BP 97/45
--- NOTE | 2020-03-01 06:20 | NUR ---
IV CAME OUT LAST NIGHT. RESTARTED 22GA TO RT HAND. ATTEMPTS X1. NO REDNESS OR SWELLING TO SITE.
--- NOTE | 2020-03-01 07:56 | NUR ---
PT RESTING ON LEFT SIDE, RR EVEN AND UNLABORED ON RA. DENIES NEEDS OR PAIN AT THIS TIME. CALL LIGHT WITHIN REACH. BED IN LOWEST POSITION. WILL CONTINUE TO MONITOR.
[2020-03-01 08:00] VITALS: BP 107/52
[2020-03-01 08:49] LABS: BASOPHILS 0.1 % (0-2); EOSINOPHILS 1.7 % (0-7); HEMATOCRIT 26.5 % (36.0-48.0); HEMOGLOBIN 8.2 g/dL (12-16); IMMATURE GRANULOCYTES 0.6 % (0-5); LYMPHOCYTES 13.7 % (15-50); MCH 28.5 pg (26.0-34.0); MCHC 30.9 g/dL (31.0-37.0); MEAN PLATELET VOLUME 10.5 fL (7.4-10.4); MONOCYTES 6.8 % (2-11); NEUTROPHILS 77.1 % (40-80); PLATELET COUNT 148 10x3/uL (130-400); RBC 2.88 10x6/uL (4.00-5.40); RDW 13.5 % (11.5-14.5)
[2020-03-01 08:58] LABS: ALBUMIN 1.7 g/dL (3.4-5.0); ANION GAP 11.9 mmol/L (8-16); BILIRUBIN - TOTAL 0.27 mg/dL (0.2-1.3); CALCIUM 7.6 mg/dL (8.5-10.1); CARBON DIOXIDE 22.1 mmol/L (21.0-32.0); CREATININE - SERUM 2.5 mg/dL (0.6-1.3); PROTEIN - SERUM 4.3 g/dL (6.4-8.2)
[2020-03-01 08:59] LABS: MAGNESIUM - SERUM 1.6 mg/dL (1.8-2.4)
[2020-03-01 12:00] VITALS: BP 112/43
[2020-03-01 16:00] VITALS: BP 147/68
[2020-03-01 20:00] VITALS: BP 104/51
[2020-03-02] VITALS: BP 101/44
[2020-03-02 04:00] VITALS: BP 99/47
[2020-03-02 06:37] LABS: ALBUMIN 1.9 g/dL (3.4-5.0); ANION GAP 12.5 mmol/L (8-16); BILIRUBIN - TOTAL 0.16 mg/dL (0.2-1.3); CALCIUM 7.4 mg/dL (8.5-10.1); CARBON DIOXIDE 21.5 mmol/L (21.0-32.0); CREATININE - SERUM 2.5 mg/dL (0.6-1.3); MAGNESIUM - SERUM 1.5 mg/dL (1.8-2.4); PHOSPHOROUS 2.1 mg/dL (2.5-4.9); PROTEIN - SERUM 4.5 g/dL (6.4-8.2)
[2020-03-02 06:47] LABS: BASOPHILS 0.2 % (0-2); EOSINOPHILS 1.8 % (0-7); HEMATOCRIT 26.4 % (36.0-48.0); HEMOGLOBIN 8.1 g/dL (12-16); IMMATURE GRANULOCYTES 0.6 % (0-5); LYMPHOCYTES 19.4 % (15-50); MCH 28.1 pg (26.0-34.0); MCHC 30.7 g/dL (31.0-37.0); MCV 91.7 fL (80.0-100.0); MEAN PLATELET VOLUME 10.6 fL (7.4-10.4); MONOCYTES 7.9 % (2-11); NEUTROPHILS 70.1 % (40-80); PLATELET COUNT 155 10x3/uL (130-400); RBC 2.88 10x6/uL (4.00-5.40); RDW 13.4 % (11.5-14.5); WBC 6.2 10x3/uL (4.8-10.8)
[2020-03-02 12:40] LABS: % SATURATION 24 % (15-55); IRON 43 ug/dl (35-150); TOTAL IRON BIND CAPACITY 173 ug/dl (260-445); UNSAT IRON BIND CAPACITY 130 ug/dl (150-375)
[2020-03-02 13:23] VITALS: BP 128/56
--- NOTE | 2020-03-02 15:36 | NUR ---
ATTEMPTED TO COLLECT STOOL SAMPLE FROM PT BUT SHE HAD ALREADY EMPTIED HER COLOSTOMY BAD. PT INSTRUCTED TO CALL AND INFORM RN SO THAT SAMPLE CAN BE OBTAINED.
--- NOTE | 2020-03-02 16:16 | NUR ---
RECEIVED CALL FROM GRAND DAUGHTER CONCERNED WHEN PT WILL BE DC. AT THIS TIME NO DC ORDERS ARE PRESENT.
[2020-03-02 17:05] VITALS: BP 110/55
[2020-03-02 21:40] VITALS: BP 109/52
[2020-03-03] VITALS: BP 111/51
[2020-03-03 04:00] VITALS: BP 94/46
[2020-03-03 06:40] LABS: BASOPHILS 0.1 % (0-2); EOSINOPHILS 0.6 % (0-7); HEMATOCRIT 26.4 % (36.0-48.0); HEMOGLOBIN 8.1 g/dL (12-16); IMMATURE GRANULOCYTES 0.7 % (0-5); LYMPHOCYTES 13.2 % (15-50); MCH 28.4 pg (26.0-34.0); MCHC 30.7 g/dL (31.0-37.0); MCV 92.6 fL (80.0-100.0); MEAN PLATELET VOLUME 10.8 fL (7.4-10.4); MONOCYTES 5.6 % (2-11); NEUTROPHILS 79.8 % (40-80); PLATELET COUNT 140 10x3/uL (130-400); RBC 2.85 10x6/uL (4.00-5.40); RDW 13.4 % (11.5-14.5); WBC 6.8 10x3/uL (4.8-10.8)
--- NOTE | 2020-03-03 07:20 | NUR ---
RECIEVE REPORT. RESTING IN BED WITH EYES CLOSED. NO SIGNS OF DISTRESS. CONTINUE PLAN OF CARE AND SAFETY PRECAUTIONS.
[2020-03-03 07:45] LABS: ALBUMIN 2.1 g/dL (3.4-5.0); ANION GAP 14.7 mmol/L (8-16); BILIRUBIN - TOTAL 0.19 mg/dL (0.2-1.3); CALCIUM 7.5 mg/dL (8.5-10.1); CARBON DIOXIDE 21.4 mmol/L (21.0-32.0); CREATININE - SERUM 2.4 mg/dL (0.6-1.3); MAGNESIUM - SERUM 1.4 mg/dL (1.8-2.4); POTASSIUM - SERUM 5.1 mmol/L (3.5-5.1)
[2020-03-03 08:00] VITALS: BP 107/53
[2020-03-03 08:04] LABS: PROTEIN - SERUM 4.1 g/dL (6.4-8.2)
--- NOTE | 2020-03-03 08:53 | MORECARE ---
CASE MANAGEMENT DISCHARGE SUMMARY PATIENT: WILFRID DE LA CRUZ UNIT: [id number] ADM DATE: 02/22/20 AGE: 84 : 33 SEX: F ROOM/BED: D.2102 AUTHOR: TERRELL,DOC PHYSICIAN: REFERRING PHYSICIAN: SHALOM OGDEN MD DATE OF SERVICE: 03/03/20 Discharge Plan Patient Name: WILFRID DE LA CRUZ Facility: [facility]:[place] : 1935 Planned Disposition: Home with Home Health Anticipated Discharge Date: 03/03/20 Discharge Date: Expected LOS: 10 Initial Reviewer: [email or web address] Initial Review Date: 03/03/2020 Generated: 03/03/20 9:53 am DCPIA - Discharge Planning Initial Assessment Updated by [email or web address]: Darlin Henriquez on 03/03/20 8:52 am * Is the patient Alert and Oriented? Yes * How many steps to enter\exit or inside your home? 0/0 * PCP Dr. Bueno * Pharmacy [facility] on [facility] * Preadmission Environment Home with Family * ADLs Partial Dependent * Partial ADLs (Assistance needed) Medication Management * Equipment Bedside Commode Cane Walker Wheelchair * List name and contact numbers for known caregivers / representatives who currently or will assist patient after discharge: Myrna George - [phone] * Verbal permission to speak to the caregivers and representatives has been obtained from the patient. Yes * Community resources currently utilized None * Additional services required to return to the preadmission environment? Yes * Can the patient safely return to the preadmission environment? Yes * Has this patient been hospitalized within the prior 30 days at any hospital? No Coverage Notice Reviewer: [id number] Eyad Henriquez Notice Issued Date-Time: 03/03/2020 8:40 Notice Type: IM Discharge Notice Notice Delivered To: Patient Relationship to Patient: Self Clockmaker Name: Delivery Method: HAND - Hand Delivered Deanna Days: Prior Verbal Notification: Recipient Understood Notice: Yes Recipient Signature: Yes Med Rec Note Co-signed by Attending: Coverage Notice Comment: Reviewer: [email or web address] Eyad eHnriquez Notice Issued Date-Time: 03/03/2020 8:43 Notice Type: Patient Choice Letter Notice Delivered To: Patient Relationship to Patient: Self Clockmaker Name: Delivery Method: HAND - Hand Delivered Deanna Days: Prior Verbal Notification: Recipient Understood Notice: Yes Recipient Signature: Yes Med Rec Note Co-signed by Attending: Coverage Notice Comment: [facility] for [facility] in [place] Refusal for inpatient rehab or SNF Patient Name: WILFRID DE LA CRUZ Page [phone] at 0853 All edits/amendments must be made on the electronic document DICTATION DATE: 03/03/20852 MEDICAL ASSISTANT PER DIEM: OSWALD 03/03/20852 RPT#: [id number] DC DATE: STATUS: ADM IN [facility] [address] [place] [address] END OF REPORT
--- NOTE | 2020-03-03 09:06 | MORECARE ---
CASE MANAGEMENT DISCHARGE SUMMARY PATIENT: WILFRID DE LA CRUZ UNIT: [id number] ADM DATE: 02/22/20 AGE: 84 : 33 SEX: F ROOM/BED: D.2106 AUTHOR: TERRELL,DOC PHYSICIAN: REFERRING PHYSICIAN: SHALOM OGDEN MD DATE OF SERVICE: 03/03/20 Discharge Plan Patient Name: WILFRID DE LA CRUZ Facility: [facility]:[place] : 1935 Planned Disposition: Home with Home Health Anticipated Discharge Date: 03/03/20 Discharge Date: Expected LOS: 10 Initial Reviewer: [id number] Initial Review Date: 03/03/2020 Generated: 03/03/20 10:06 am Comments DCP- Discharge Planning Updated by [email or web address]: Darlin Henriquez on 03/03/20 8:[address] Patient Name: WILFRID DE LA CRUZ Admission Status: ER Accout number: [id number] Admission Date: 02-22-2020 : 1935 Admission Diagnosis: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 CM educated patient on the CM role and verbal consent given by patient to complete assessment. Patient lives at home with her grand daughter and her 2 elementary aged great grand children. At discharge patient plans to return and feels this is a safe discharge. States her grand daughter works at the [employer] office, so is not there all of the time. States she has a walker at the home, but typically walks unaided. CM discussed availability of home health, rehab services, and medical equipment. Patient states she has used [facility] in [place] in the past and would like this resumed. I called [facility] in [place] and spoke with the answering service, Gail, and called in referral, clinical faxed. I asked her again about rehab and she refuses. States she is no longer dizzy on arising and has been ambulating to the bathroom unaided. Refusal for rehab signed. CM will continue to follow and will assist as needed with dc plans/needs. Spindle Repairer: Darlin Henriquez DCPIA - Discharge Planning Initial Assessment Updated by [id number]: Darlin Henriquez on 03/03/20 8:52 am * Is the patient Alert and Oriented? Yes * How many steps to enter\exit or inside your home? 0/0 * PCP Dr. Bueno * [facility] [address] * Preadmission Environment Home with Family * ADLs Partial Dependent * Partial ADLs (Assistance needed) Medication Management * Equipment Bedside Commode Cane Walker Wheelchair * List name and contact numbers for known caregivers / representatives who currently or will assist patient after discharge: Myrna George - [phone] * Verbal permission to speak to the caregivers and representatives has been obtained from the patient. Yes * Community resources currently utilized None * Additional services required to return to the preadmission environment? Yes * Can the patient safely return to the preadmission environment? Yes * Has this patient been hospitalized within the prior 30 days at any hospital? No External Providers External Provider: [facility] Next Contact Date: Service Request Date: Service Type: Resolution: Reviewer: Comments: Coverage Notice Reviewer: [id number] Eyad Henriquez Notice Issued Date-Time: 03/03/2020 8:40 Notice Type: IM Discharge Notice Notice Delivered To: Patient Relationship to Patient: Self Python Web Developer Name: Delivery Method: HAND - Hand Delivered Deanna Days: Prior Verbal Notification: Recipient Understood Notice: Yes Recipient Signature: Yes Med Rec Note Co-signed by Attending: Coverage Notice Comment: Reviewer: [id number] Henriquez Notice Issued Date-Time: 03/03/2020 8:43 Notice Type: Patient Choice Letter Notice Delivered To: Patient Relationship to Patient: Self Python Web Developer Name: Delivery Method: HAND - Hand Delivered Deanna Days: Prior Verbal Notification: Recipient Understood Notice: Yes Recipient Signature: Yes Med Rec Note Co-signed by Attending: Coverage Notice Comment: [facility] for [facility] in [place] Refusal for inpatient rehab or SNF Last DP export: 03/03/20 7:53 am Patient Name: WILFRID DE LA CRUZ Page [id number] at 0906 All edits/amendments must be made on the electronic document DICTATION DATE: 03/03/20905 GANG DRILL OPERATOR: OSWALD 03/03/20905 RPT#: [id number] DC DATE: STATUS: ADM IN [facility] [address] [place] [address] END OF REPORT
--- NOTE | 2020-03-03 10:37 | NUR ---
Nutrition Follow-up: When asked if she ate breakfast this AM she states "I think so"; when asked how her appetite is she states "I hope it's good". Per MD note, pt very hungry this AM. Diet: Renal PO intake: 25-75% Wt: 98# (02/23) Last BM: 03/02 per chart Labs noted: Ca 7.5, Mg 1.4, Alb 2.1, K+ 5.1, PO4 2.1 (03/02) Meds noted: MagOx, Protonix, Carafate, Remeron, electrolyte protocol -Encourage PO intake and honor food preferences within diet restrictions. -Need new wt. -RD following.
[2020-03-03 12:03] VITALS: BP 100/39
--- NOTE | 2020-03-03 12:07 | NUR ---
Rehab Note- Re[facility] this AM [facility] behalf of [facility] that the patient has been denied an inpatient acute rehab stay. A Peer to Peer can be set up, awaiting fax for information. Rafiq contact is [phone]. Discussed denial on IDT call and patient plans to dc home at this time. Thank you for this referral! Mala Cruz RN Clinical Liaison, [facility] Rehab
[2020-03-03] MEDS ORDERED: CALMOSEPTINE OI71 GM TOPICAL (13:03)
--- NOTE | 2020-03-03 13:45 | MORECARE ---
CASE MANAGEMENT DISCHARGE SUMMARY PATIENT: WILFRID DE LA CRUZ UNIT: [id number] ADM DATE: 02/22/20 AGE: 84 : 33 SEX: F ROOM/BED: D.2101 AUTHOR: TERRELL,DOC PHYSICIAN: REFERRING PHYSICIAN: SHALOM OGDEN MD DATE OF SERVICE: 03/03/20 Discharge Plan Patient Name: WILFRID DE LA CRUZ Facility: [facility]:[place] : 1935 Planned Disposition: Home with Home Health Anticipated Discharge Date: 03/03/20 Discharge Date: Expected LOS: 10 Initial Reviewer: [email or web address] Initial Review Date: 03/03/2020 Generated: 03/03/20 2:44 pm Comments DCP- Discharge Planning Updated by [email or web address]: Darlin Henriquez on 03/03/20 12:[address] CM received discharge orders. I called Iona with [facility] and informed her, they will see her tomorrow if possible. At this time many roads in [place] are closed due to rain. I called patient's daughter per her request and informed her. She states her daughter will pick patient up after home schooling is complete today. Home today with home health. 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 CM educated patient on the CM role and verbal consent given by patient to complete assessment. Patient lives at home with her grand daughter and her 2 elementary aged great grand children. At discharge patient plans to return and feels this is a safe discharge. States her grand daughter works at the post office, so is not there all of the time. States she has a walker at the home, but typically walks unaided. CM discussed availability of home health, rehab services, and medical equipment. Patient states she has used [facility] in [place] in the past and would like this resumed. I called [facility] in [place] and spoke with the answering service, Gail, and called in referral, clinical faxed. I asked her again about rehab and she refuses. States she is no longer dizzy on arising and has been ambulating to the bathroom unaided. Refusal for rehab signed. CM will continue to follow and will assist as needed with dc plans/needs. Bagger And Stock Handler Helper: Darlin Henriquez DCPIA - Discharge Planning Initial Assessment Updated by [email or web address]: Darlin Henriquez on 03/03/20 8:52 am * Is the patient Alert and Oriented? Yes * How many steps to enter\exit or inside your home? 0/0 * PCP Dr. Bueno * Pharm[facility] on [address] * Preadmission Environment Home with Family * ADLs Partial Dependent * Partial ADLs (Assistance needed) Medication Management * Equipment Bedside Commode Cane Walker Wheelchair * List name and contact numbers for known caregivers / representatives who currently or will assist patient after discharge: Myrna George - [phone] * Verbal permission to speak to the caregivers and representatives has been obtained from the patient. Yes * Community resources currently utilized None * Additional services required to return to the preadmission environment? Yes * Can the patient safely return to the preadmission environment? Yes * Has this patient been hospitalized within the prior 30 days at any hospital? No Coverage Notice Reviewer: [email or web address] Eyad Henriquez Notice Issued Date-Time: 03/03/2020 8:40 Notice Type: IM Discharge Notice Notice Delivered To: Patient Relationship to Patient: Self Supervisor Felling Bucking Name: Delivery Method: HAND - Hand Delivered Deanna Days: Prior Verbal Notification: Recipient Understood Notice: Yes Recipient Signature: Yes Med Rec Note Co-signed by Attending: Coverage Notice Comment: Reviewer: [email or web address] Eyad Henriquez Notice Issued Date-Time: 03/03/2020 8:43 Notice Type: Patient Choice Letter Notice Delivered To: Patient Relationship to Patient: Self Supervisor Felling Bucking Name: Delivery Method: HAND - Hand Delivered Deanna Days: Prior Verbal Notification: Recipient Understood Notice: Yes Recipient Signature: Yes Med Rec Note Co-signed by Attending: Coverage Notice Comment: CAITLIN for [facility] in [place] Refusal for inpatient rehab or SNF Last DP export: 03/03/20 8:06 am Patient Name: WILFRID DE LA CRUZ Page [id number] at 1345 All edits/amendments must be made on the electronic document DICTATION DATE: 03/03/20 1344 VAN OWNER OPERATOR: OSWALD 03/03/20 1344 RPT#: [id number] DC DATE: STATUS: ADM IN [facility] [address] [place] [address] END OF REPORT
--- NOTE | 2020-03-03 15:11 | NUR ---
OT NOTE: PT PERFORMED WELL TODAY. PERFORMED BED MOB WITH SPV; SIT TO STAND WITH CGA; AMB WELL WITH USE OF RW AND SBA. SINK HYGIENE WITH SBA; GROOMING WITH SET UP; FUNCTIONAL TRANSFERS WITH CGA AND USE OF RW. PT MUCH MORE STEADY AND SAFE WITH USE OF WALKER. INSTRUCTED PT TO USE WALKER WHEN SHE RETURNS HOME TO PREVENT FALLS. JIM GASPAR, OTR/L [phone]
--- NOTE | 2020-03-03 16:39 | NUR ---
ALERT AND ORIENTED X4. SITTING UP IN BEDDC RT WRIST IV TIP INTACT. DISCHARGE INSTRUCIONS GIVEN VERBALLY AND WRITTEN. DISCHARGE PAPERS SIGNED ON CHART. WAITING FOR RIDE TO ARRIVE. CONTINUE PLAN OF CARE AND SAFETY PRECAUTIONS.
--- NOTE | 2020-03-03 17:44 | NUR ---
RIDE ARRIVES. ESCORT TO RIDE VIA WHEELCHAIR. REMAINS FREE FROM INJURY.
--- NOTE | 2020-03-04 09:16 | MORECARE ---
CASE MANAGEMENT DISCHARGE SUMMARY PATIENT: WILFRID DE LA CRUZ UNIT: [id number] ADM DATE: 02/22/20 AGE: 84 : 33 SEX: F ROOM/BED: D.210 AUTHOR: TERRELL,DOC PHYSICIAN: REFERRING PHYSICIAN: SHALOM OGDEN MD DATE OF SERVICE: 03/04/20 Discharge Plan Patient Name: WILFRID DE LA CRUZ Facility: [facility]:[place] : 1935 Planned Disposition: Home with Home Health Anticipated Discharge Date: 03/03/20 Discharge Date: 03/03/2020 Expected LOS: 10 Initial Reviewer: [email or web address] Initial Review Date: 03/03/2020 Generated: 03/04/20 10:15 am Comments DCP- Discharge Planning Updated by [email or web address]: Darlinagueda Henriquez on 03/03/20 12:[address] CM received discharge orders. I called Iona with [facility] and informed her, they will see her tomorrow if possible. At this time many roads in [place] are closed due to rain. I called patient's daughter per her request and informed her. She states her daughter will pick patient up after home schooling is complete today. Home today with home health. DCP- Discharge Planning Updated by [email or web address]: Darlin Freygenesis on 03/03/20 8:[address] Patient Name: WILFRID DE LA CRUZ Admission Status: ER Accout number: [id number] Admission Date: 02-22-2020 : 1935 Admission Diagnosis:HYP CHR KIDNEY DISEASE W STAGE 5 CHR KIDNEY DISEASE OR Attending: SHALOM OGDEN Current LOS: 10 Anticipated DC Date: 03-03-2020 Planned Disposition: Home with Home Health Primary Insurance: [employer] MEDICARE ADV Discharge Planning Comments: CM met with patient to complete initial dc planning assessment. CM educated patient on the CM role and verbal consent given by patient to complete assessment. Patient lives at home with her grand daughter and her 2 elementary aged great grand children. At discharge patient plans to return and feels this is a safe discharge. States her grand daughter works at the post office, so is not there all of the time. States she has a walker at the home, but typically walks unaided. CM discussed availability of home health, rehab services, and medical equipment. Patient states she has used [facility] in [place] in the past and would like this resumed. I called [facility] in [place] and spoke with the answering service, Gail, and called in referral, clinical faxed. I asked her again about rehab and she refuses. States she is no longer dizzy on arising and has been ambulating to the bathroom unaided. Refusal for rehab signed. CM will continue to follow and will assist as needed with dc plans/needs. Tow Picker: Darlin Henriquez DCPIA - Discharge Planning Initial Assessment Updated by [email or web address]: Darlin Henriquez on 03/03/20 8:52 am * Is the patient Alert and Oriented? Yes * How many steps to enter\exit or inside your home? 0/0 * PCP Dr. Bueno * Pharmacy [facility] on [address] * Preadmission Environment Home with Family * ADLs Partial Dependent * Partial ADLs (Assistance needed) Medication Management * Equipment Bedside Commode Cane Walker Wheelchair * List name and contact numbers for known caregivers / representatives who currently or will assist patient after discharge: Myrna George - [phone] * Verbal permission to speak to the caregivers and representatives has been obtained from the patient. Yes * Community resources currently utilized None * Additional services required to return to the preadmission environment? Yes * Can the patient safely return to the preadmission environment? Yes * Has this patient been hospitalized within the prior 30 days at any hospital? No Coverage Notice Reviewer: [id number] Eyad Henriquez Notice Issued Date-Time: 03/03/2020 8:40 Notice Type: IM Discharge Notice Notice Delivered To: Patient Relationship to Patient: Self Department Clinician Name: Delivery Method: HAND - Hand Delivered Deanna Days: Prior Verbal Notification: Recipient Understood Notice: Yes Recipient Signature: Yes Med Rec Note Co-signed by Attending: Coverage Notice Comment: Reviewer: [id number] Eyad Henriquez Notice Issued Date-Time: 03/03/2020 8:43 Notice Type: Patient Choice Letter Notice Delivered To: Patient Relationship to Patient: Self Department Clinician Name: Delivery Method: HAND - Hand Delivered Deanna Days: Prior Verbal Notification: Recipient Understood Notice: Yes Recipient Signature: Yes Med Rec Note Co-signed by Attending: Coverage Notice Comment: CAITLIN for [facility] in [place] Refusal for inpatient rehab or SNF Last DP export: 03/03/20 12:45 pm Patient Name: WILFRID DE LA CRUZ Page [phone] at 0916 All edits/amendments must be made on the electronic document DICTATION DATE: 03/04/20914 ETHYLENE COMPRESSOR OPERATOR: OSWALD 03/04/20914 RPT#: [id number] DC DATE:03/03/20 STATUS: DIS IN [facility] [address] [place] [address] END OF REPORT
== END 2020-03-03 17:44 | disposition home health service (06) | DRG 682 ==
LOC: D.ER 16:05 → D.MS 18:31 → D.M2 02-28 23:27
PROVIDERS: Family Medicine; Family Medicine Adult Medicine; Internal Medicine; Internal Medicine Nephrology; ADMIT Family Medicine; ATTEND Family Medicine
DX: I12.0 Hypertensive chronic kidney disease with stage 5 chronic kidney disease or end stage renal disease (principal); J18.9 Pneumonia, unspecified organism; E43 Unspecified severe protein-calorie malnutrition; N17.9 Acute kidney failure, unspecified; E87.2 Acidosis; N18.5 Chronic kidney disease, stage 5; Z68.1 Body mass index [BMI] 19.9 or less, adult; E87.6 Hypokalemia; E83.42 Hypomagnesemia; D72.829 Elevated white blood cell count, unspecified; D64.9 Anemia, unspecified; E86.0 Dehydration; R11.2 Nausea with vomiting, unspecified; K80.20 Calculus of gallbladder without cholecystitis without obstruction

== ENCOUNTER 2020-03-06 20:20 | Inpatient (IN) | payer MEDICARE ==
[~2020-03-06] VITALS: Ht 167.6 cm; Wt 44.5 kg
--- NOTE | 2020-03-06 19:10 | NUR ---
RECEIVED REPORT, ASSUMED CARE, DENIES PAIN, BREATHING EVEN UNLABRORED, CALL LIGHT IN REACH, BED LOWEST POSITION, NO S/S OF DISTRESS NOTED, IV PATENT, SOLANO TO GRAVITY
[~2020-03-06 20:20] MED LIST changes: +CALMOSEPTINE OI71 GM TOPICAL
[2020-03-06 21:04] LABS: BASOPHILS 0.4 % (0-2); EOSINOPHILS 0.8 % (0-7); IMMATURE GRANULOCYTES 0.6 % (0-5); LYMPHOCYTES 13.5 % (15-50); MCH 29.2 pg (26.0-34.0); MCV 94.2 fL (80.0-100.0); MEAN PLATELET VOLUME 9.8 fL (7.4-10.4); MONOCYTES 6.3 % (2-11); NEUTROPHILS 78.4 % (40-80); RBC 3.08 10x6/uL (4.00-5.40); WBC 7.2 10x3/uL (4.8-10.8)
[2020-03-06 21:05] LABS: PLATELET COUNT 227 10x3/uL (130-400)
[2020-03-06 21:21] LABS: ANION GAP 18.2 mmol/L (8-16); CALCIUM 8.2 mg/dL (8.5-10.1); CARBON DIOXIDE 18.2 mmol/L (21.0-32.0); CREATININE - SERUM 4.1 mg/dL (0.6-1.3); POTASSIUM - SERUM 4.4 mmol/L (3.5-5.1)
[2020-03-06 21:35] LABS: ALBUMIN 2.7 g/dL (3.4-5.0); BILIRUBIN - TOTAL 0.31 mg/dL (0.2-1.3); PROTEIN - SERUM 5.4 g/dL (6.4-8.2)
--- NOTE | 2020-03-06 21:35 | NUR ---
URINE SENT TO LAB
[2020-03-06 21:47] LABS: BILIRUBIN NEGATIVE (NEGATIVE); KETONE NEGATIVE (NEGATIVE); NITRITE NEGATIVE (NEGATIVE); UROBILINOGEN NORMAL (NORMAL)
--- NOTE | 2020-03-07 01:20 | NUR ---
RECEIVED TO FLOOR FROM ER, ORIENTED TO ROOM, IV TO RFA SL, BED LOWEST POSITION, CALL LIGHT IN REACH, DENIES NEEDS, NO S/S OF DISTRESS NOTED
[2020-03-07] MEDS ORDERED: BUMEX2 MG PO (01:29)
[2020-03-07 01:34] VITALS: BP 139/70; BMI 15.8
--- NOTE | 2020-03-07 05:42 | NUR ---
I have reviewed this patient and I concur with the Shift Assessment completed by the Licensed Practical Nurse today this shift.
[2020-03-07 07:45] VITALS: BMI 15.8
[2020-03-07 10:26] VITALS: BP 103/47
[2020-03-07 11:24] LABS: BASOPHILS 0.4 % (0-2); EOSINOPHILS 1.2 % (0-7); HEMATOCRIT 26.3 % (36.0-48.0); HEMOGLOBIN 7.9 g/dL (12-16); IMMATURE GRANULOCYTES 0.4 % (0-5); LYMPHOCYTES 17.1 % (15-50); MCH 28.5 pg (26.0-34.0); MCV 94.9 fL (80.0-100.0); MEAN PLATELET VOLUME 9.3 fL (7.4-10.4); NEUTROPHILS 74.9 % (40-80); PLATELET COUNT 199 10x3/uL (130-400); RBC 2.77 10x6/uL (4.00-5.40)
[2020-03-07 11:25] LABS: WBC 4.8 10x3/uL (4.8-10.8)
[2020-03-07 11:39] LABS: ALBUMIN 2.1 g/dL (3.4-5.0); ANION GAP 17.1 mmol/L (8-16); BILIRUBIN - TOTAL 0.24 mg/dL (0.2-1.3); CALCIUM 7.5 mg/dL (8.5-10.1); CARBON DIOXIDE 17.3 mmol/L (21.0-32.0); CREATININE - SERUM 3.8 mg/dL (0.6-1.3); POTASSIUM - SERUM 4.4 mmol/L (3.5-5.1); PROTEIN - SERUM 4.9 g/dL (6.4-8.2)
[2020-03-07 13:57] VITALS: Ht 167.6 cm; Wt 44.5 kg
--- NOTE | 2020-03-07 14:20 | NUR ---
RECEIVED VERBAL ORDER FROM RENAL TO BLADDAR SCAN PT, PT HAD JUST USED RESTROOM, WHEN SCANNING PT SHE HAD 54 IN BLADDER. NO NEEDS AT TIS TIME. CALL LIGHT IN REACH CONTINUE WITH PLAN OF CARE
[2020-03-07 14:48] VITALS: BP 110/47
--- NOTE | 2020-03-07 16:09 | NUR ---
PATIENT IS WITHOUT DISTRESS.CALL LIGHT IN REACH
[2020-03-07 17:35] VITALS: BP 128/68
--- NOTE | 2020-03-07 19:00 | NUR ---
PATIENT ALERT AND ORIENTED. RIGHT UPPER ARM IV THAT IS SALINE LOCKED ANOTHER RIGHT FOREARM IV THAT IS INFUSING NS @ 50. LOWER LEFT QUADRANT COLOSTOMY. BAG BURPED. REQUESTS SANDWICH TRAY. PROVIDED. DENIES FURTHER NEEDS. CALL LIGHT CLOSE. CPOC.
[2020-03-07 22:21] VITALS: BP 112/54
[2020-03-08 01:07] VITALS: BP 107/47
--- NOTE | 2020-03-08 02:05 | NUR ---
RESTING WITH NO SIGNS OR SYMPTOMS OF DISTRESS AT THIS TIME. CALL LIGHT CLOSE. CPOC.
[2020-03-08 06:49] VITALS: BP 101/46
--- NOTE | 2020-03-08 07:20 | NUR ---
RESTING IN BED WITH EYES CLOSED, NO S/S OF DISTRESS NOTED AT THIS TIME. IV LOCATED TO RIGHT UPPER ARM RUNNING NS @ KVO. WILL CONT TO MONITOR.
[2020-03-08 07:48] LABS: BASOPHILS 0.5 % (0-2); EOSINOPHILS 1.1 % (0-7); HEMATOCRIT 25.1 % (36.0-48.0); HEMOGLOBIN 7.6 g/dL (12-16); IMMATURE GRANULOCYTES 0.5 % (0-5); LYMPHOCYTES 11.9 % (15-50); MCH 28.8 pg (26.0-34.0); MCHC 30.3 g/dL (31.0-37.0); MCV 95.1 fL (80.0-100.0); MEAN PLATELET VOLUME 9.6 fL (7.4-10.4); MONOCYTES 6.8 % (2-11); NEUTROPHILS 79.2 % (40-80); PLATELET COUNT 237 10x3/uL (130-400); RBC 2.64 10x6/uL (4.00-5.40); RDW 14.5 % (11.5-14.5)
--- NOTE | 2020-03-08 08:00 | NUR ---
COLOSTOMY BAG CAME LOOSE FROM BOTTOM SIDE, REMOVED AND PLACED NEW BAG, BATHED PT, CHANGED LINENS.TURNED FLUIDS OFF INSTRUCTED BY . DENIES ANY FURTHER NEEDS. WILL CONT TO MONITOR.
[2020-03-08 08:08] LABS: WBC 6.3 10x3/uL (4.8-10.8)
[2020-03-08 08:40] LABS: ANION GAP 19.4 mmol/L (8-16); BILIRUBIN - TOTAL 0.14 mg/dL (0.2-1.3); CALCIUM 7.2 mg/dL (8.5-10.1); CARBON DIOXIDE 16.2 mmol/L (21.0-32.0); POTASSIUM - SERUM 4.6 mmol/L (3.5-5.1); PROTEIN - SERUM 4.2 g/dL (6.4-8.2)
[2020-03-08 09:03] VITALS: BP 115/46
--- NOTE | 2020-03-08 10:37 | NUR ---
JAMI GRIDER APPLIED INSTRUCTED BY .
--- NOTE | 2020-03-08 10:57 | NUR ---
SPOKE WITH CORNELIO IN PHARMACY ABOUT ADMINISTRATION OF SODIUM BICARBONATE INJECTION 50MEQ, WAS INSTRUCTED TO PUSH OVER 5-10 MINUTES.
--- NOTE | 2020-03-08 11:51 | NUR ---
BLADDER SCANNED PT SHORTLY AFTER PT VOIDED, 15MLS PRESENT.
[2020-03-08 12:53] VITALS: BP 102/45
--- NOTE | 2020-03-08 14:00 | NUR ---
STARTED BLOOD. V/S STABLE,WILL CONT TO MONITOR.
[2020-03-08 15:59] LABS: % SATURATION 20 % (15-55); IRON 43 ug/dl (35-150); TOTAL IRON BIND CAPACITY 210 ug/dl (260-445); UNSAT IRON BIND CAPACITY 167 ug/dl (150-375)
--- NOTE | 2020-03-08 19:00 | NUR ---
PATIENT ALERT AND ORIENTED WATCHING TV. ASSESSMENT PERFORMED. EMPTIED PATIENT COLOSTOMY. DENIES PAIN OR DISCOMFORT AT THIS TIME. CALL LIGHT REMAINS CLOSE. CPOC.
--- NOTE | 2020-03-08 20:20 | NUR ---
SPOKE WITH DR. LORENZO, WAS INSTRUCTED TO GIVE ONE TIME DOSE OF BUMEX WITH AM MEDS.
--- NOTE | 2020-03-08 20:42 | NUR ---
PATIENT COMPLAINING OF NAUSEA. ADMINISTERED ZOFRAN PER ORDER. DENIES FURTHER NEEDS AT THIS TIME. CPOC.
--- NOTE | 2020-03-08 21:54 | NUR ---
PATIENT STATES THAT NAUSEA HAS SUBSIDED. SCANNED AND ADMINISTERED HS MEDICATIONS PER ORDER. DENIES FURTHER NEEDS AT THIS TIME. CALL LIGHT CLOSE. CPOC.
--- NOTE | 2020-03-08 22:25 | NUR ---
PATIENT COMPLAINING OF IV BURNING. TURNED DOWN RATE OF ABX.
--- NOTE | 2020-03-08 22:58 | NUR ---
RESTING WITH NO SIGNS OR SYMPTOMS OF DISTRESS. EMPTIED COLOSTOMY, APPLIED CALMOSEPTINE AFTER CLEANING AROUND COLOSTOMY. DENIES FURTHER NEEDS AT THIS TIME. RETURNED TO RESTING BEFORE LEAVING THE ROOM,
[2020-03-08 23:19] VITALS: BP 123/56
--- NOTE | 2020-03-08 23:36 | NUR ---
CHECKED ON PATIENT. PATIENT PULLED OUT IV. STATED "IT WAS BOTHERING ME TOO BAD SO I PULLED IT OUT." 3/4 OF ABX RECEIVED. PATIENT REFUSING REST OF ABX AT THIS TIME. CPOC.
[2020-03-09 03:24] VITALS: BP 114/47
[2020-03-09 04:39] LABS: BASOPHILS 0.4 % (0-2); EOSINOPHILS 1.3 % (0-7); IMMATURE GRANULOCYTES 0.7 % (0-5); LYMPHOCYTES 18.1 % (15-50); MCH 29.3 pg (26.0-34.0); MCV 94.4 fL (80.0-100.0); MEAN PLATELET VOLUME 9.6 fL (7.4-10.4); MONOCYTES 6.6 % (2-11); NEUTROPHILS 72.9 % (40-80); PLATELET COUNT 251 10x3/uL (130-400); RDW 14.5 % (11.5-14.5); WBC 5.6 10x3/uL (4.8-10.8)
[2020-03-09 04:48] LABS: HEMATOCRIT 30.6 % (36.0-48.0); HEMOGLOBIN 9.5 g/dL (12-16); RBC 3.24 10x6/uL (4.00-5.40)
[2020-03-09 04:50] LABS: ANION GAP 15.2 mmol/L (8-16); CALCIUM 7.4 mg/dL (8.5-10.1); CARBON DIOXIDE 17.8 mmol/L (21.0-32.0); CREATININE - SERUM 3.7 mg/dL (0.6-1.3)
[2020-03-09 06:40] VITALS: BP 118/57
--- NOTE | 2020-03-09 07:15 | NUR ---
RECEIVED BEDSIDE REPORT. PT LAYING IN BED A&O X4. LEFT FOREARM, S/L, PATENT, NO REDNESS OR SWELLING. LLQ COLOSTOMY BAG, IN PLACE, NO LEAKAGE, DRAINING WELL. TELEMETRY IN PLACE, 82 SR, BUNDLE BRANCH BLOCK. PT ABLE TO AMBULATE WITH ONE PERSON ASSIST. JAMI HOSE ON BILAT LOWER EXTREMITIES. BED ALARM ON. EDUCATED PT ON CL AND NEEDS, VERBALIZED UNDERSTANDING. BED LOW, RAILS X2. CL IN REACH. WILL CONTINUE TO MONITOR.
[2020-03-09 09:22] VITALS: BP 116/49
--- NOTE | 2020-03-09 11:15 | NUR ---
PT C/O OF PAIN AT INFUSION SITE, PIV PATENT, NO REDNESS OR SWELLING. SLOWED INFUSION RATE TO 150ML/HR. WILL CONTINUE TO MONITOR.
--- NOTE | 2020-03-09 12:31 | NUR ---
EMPTIED COLOSTOMY BAG, DARK GRN OUTPUT, 100 ML. PT TOLERATED WELL. BED LOW, CL IN REACH.
--- NOTE | 2020-03-09 12:57 | NUR ---
PIV IN LEFT FOREARM INFILTRATED, ATTEMPTED TWO PIVS IN RIGHT FOREARM, UNSUCCESSFUL. LEFT MESSAGE FOR VASCULAR ACCESS NURSE.
[2020-03-09 13:05] VITALS: BP 110/54
--- NOTE | 2020-03-09 16:30 | NUR ---
CHANGED COLOSTOMY BAG, DARK GREEN BM, 100ML DISCARDED. PT TOLERATED WELL. BED LOW, CL IN REACH.
[2020-03-09 17:54] VITALS: BP 125/55
--- NOTE | 2020-03-09 19:00 | NUR ---
PATIENT ALERT AND ORIENTED ENTERING THE ROOM. ASSESSMENT PERFORMED. PATIENT DENIES PAIN OR DISCOMFORT. FALL PRECAUTIONS IN PLACE. NO YELLOW GOWNS AT THIS TIME. PERFORMED OSTOMY CARE WITH PATIENT ASSISTANCE. DENIES FURTHER NEEDS. CALL LIGHT IS CLOSE. BED RAILS UP X 2. BED LOCKED, LOWERED. CPOC.
[2020-03-09 20:00] VITALS: BP 125/53
[2020-03-10] VITALS (7 sets, daily range): BP systolic 112–162; BP diastolic 49–79
--- NOTE | 2020-03-10 02:59 | NUR ---
SAM AND THIS NURSE ASSISTED PATIENT TO THE BATHROOM. PATIENT PERFORMED OSTOMY CARE. RETURNED TO BED SAFELY. FALL PRECAUTIONS REMAIN IN PLACE. CALL LIGHT CLOSE. CPOC.
[2020-03-10 06:41] LABS: BASOPHILS 0.9 % (0-2); EOSINOPHILS 1.8 % (0-7); HEMATOCRIT 28.8 % (36.0-48.0); HEMOGLOBIN 8.9 g/dL (12-16); IMMATURE GRANULOCYTES 0.5 % (0-5); LYMPHOCYTES 15.6 % (15-50); MCH 29.1 pg (26.0-34.0); MCHC 30.9 g/dL (31.0-37.0); MCV 94.1 fL (80.0-100.0); MEAN PLATELET VOLUME 9.5 fL (7.4-10.4); MONOCYTES 5.8 % (2-11); NEUTROPHILS 75.4 % (40-80); RBC 3.06 10x6/uL (4.00-5.40); WBC 5.7 10x3/uL (4.8-10.8)
[2020-03-10 06:55] LABS: ANION GAP 17.6 mmol/L (8-16); CALCIUM 7.5 mg/dL (8.5-10.1); CARBON DIOXIDE 16.6 mmol/L (21.0-32.0); CREATININE - SERUM 4.1 mg/dL (0.6-1.3); POTASSIUM - SERUM 4.2 mmol/L (3.5-5.1)
[2020-03-10 06:56] LABS: PLATELET COUNT 199 10x3/uL (130-400)
--- NOTE | 2020-03-10 09:00 | NUR ---
PATIENT COVID POSTIVE TEST. NOTIFIED LEAD SUPPLY WORKER AND NM. STATED TO MOVE PATIENT. NOTIFIED CIRA ALMANZA. STATED PROBABLY NOT GOING TO SEND HER HOME TODAY. PATIENT SITTING UP IN BED AT THIS TIME EATING BREAKFAST WITH NO PROBLEMS. NOTIFED PATIENT OF POSTIVE TEST. VERBALIZED UNDERSTANDING. NO QUESTIONS AT THIS TIME.
[2020-03-10] MEDS ORDERED: TORSEMIDE20 MG PO (09:37)
--- NOTE | 2020-03-10 09:43 | NUR ---
REPORT CALLED TO TONIA HUDSON AT THIS TIME. NOTIFIED DORCAS LARKIN OF PATIENT MOVING TO ROOM 3. NO QUESTIONS AT THIS TIME.
--- NOTE | 2020-03-10 09:45 | NUR ---
PATIENT MOVED TO ROOM 2133 AT THIS TIME WITH PERSONAL BELONGS. BY MASCARA MOLDER AND RN.
--- NOTE | 2020-03-10 19:00 | NUR ---
REPORT RECEIVED, WILL CONTINUE POC. PATIENT IS AAOX4, LYING IN SEMI-FOWLERS POSITION. NO S/S OF DISTRESS OBSERVED, RR EVEN AND UNLABORED ON ROOM AIR. PATIENT DENIES NEEDS AT THIS TIME. CL IN REACH, BED LOCKED AND LOWERED. COVID 19 PRECAUTIONS MAINTAINED. WILL CTM.
--- NOTE | 2020-03-11 05:10 | NUR ---
I have reviewed this patient and I concur with the Shift Assessment completed by the Licensed Practical Nurse today this shift.
--- NOTE | 2020-03-11 05:38 | NUR ---
PATIENT PIV LYING ON THE FLOOR UPON ON ENTERING ROOM, CATH TIP INTACT. NO S/S OF BLEEDING HEMATOMA OBSERVED. PATIENT WAS RESTING WITH EYES CLOSED AND HADN'T NOTICED IT WAS OUT. PATIENT REFUSING NEW PIV AT THIS TIME BUT ALLOWED ATTEMPTS AT BLOOD DRAW.
[2020-03-11 06:03] VITALS: BP 139/51
[2020-03-11 07:01] LABS: BASOPHILS 0 % (0-2); EOSINOPHILS 0 % (0-7); HEMATOCRIT 30.2 % (36.0-48.0); HEMOGLOBIN 9.5 g/dL (12-16); IMMATURE GRANULOCYTES 0.5 % (0-5); MCH 29.3 pg (26.0-34.0); MCHC 31.5 g/dL (31.0-37.0); MCV 93.2 fL (80.0-100.0); MEAN PLATELET VOLUME 9.3 fL (7.4-10.4); MONOCYTES 2.1 % (2-11); NEUTROPHILS 81.4 % (40-80); PLATELET COUNT 230 10x3/uL (130-400); RBC 3.24 10x6/uL (4.00-5.40); RDW 15.1 % (11.5-14.5)
[2020-03-11 07:09] LABS: WBC 3.8 10x3/uL (4.8-10.8)
[2020-03-11 07:11] VITALS: BP 133/66
[2020-03-11 07:27] LABS: ANION GAP 19.2 mmol/L (8-16); CALCIUM 7.9 mg/dL (8.5-10.1); CARBON DIOXIDE 14.5 mmol/L (21.0-32.0); CREATININE - SERUM 3.5 mg/dL (0.6-1.3); POTASSIUM - SERUM 4.7 mmol/L (3.5-5.1)
[2020-03-11 11:17] VITALS: BP 130/64
[2020-03-11 12:10] LABS: SPE - A/G RATIO 1.3 (0.7-1.7); SPE - ALBUMIN 2.6 g/dL (2.9-4.4); SPE - ALPHA-1 GLOBULIN 0.2 g/dL (0.0-0.4); SPE - ALPHA-2 GLOBULIN 0.6 g/dL (0.4-1.0); SPE - BETA GLOBULIN 0.7 g/dL (0.7-1.3); SPE - GAMMA GLOBULIN 0.5 g/dL (0.4-1.8); SPE - M-SPIKE Not Observed g/dL (Not Observed); SPE - TOTAL PROTEIN 4.6 g/dL (6.0-8.5)
--- NOTE | 2020-03-11 13:24 | NUR ---
Nutrition Follow-up: Pt in droplet isolation; covid-19+. Chart reviewed. Good/fair PO intake. Diet: Renal PO intake: 50-100% Wt: 98# (03/11) Labs noted: K+ 4.7, Ca 7.9 Meds noted: Solumedrol, Remeron, Carafate, Protonix, MagOx, electrolyte protocol -Encourage PO intake and honor food preferences within diet restrictions. -Offer nutrition supplements. -Monitor wt; noted daily wts ordered. -RD following.
[2020-03-11] MEDS ORDERED: ADOXA100 MG PO (14:04)
--- NOTE | 2020-03-11 17:00 | MORECARE ---
CASE MANAGEMENT DISCHARGE SUMMARY PATIENT: WILFRID DE LA CRUZ UNIT: [id number] ADM DATE: 03/07/20 AGE: 84 : 33 SEX: F ROOM/BED: D.2133 AUTHOR: ROSIE TEJADA PHYSICIAN: REFERRING PHYSICIAN: TRISTA LEBRON MD DATE OF SERVICE: 03/11/20 Discharge Plan Patient Name: WILFRID DE LA CRUZ Facility: [facility]:[place] : 1935 Planned Disposition: Home Health Service Anticipated Discharge Date: 03/11/20 Discharge Date: Expected LOS: 4 Initial Reviewer: [email or web address] Initial Review Date: 03/07/2020 Generated: 03/11/20 6:00 pm Comments DCP- Discharge Planning Updated by [id number]: Felicita Morrison on 03/11/20 3:[address] CM contacted patient's daughter, Myrna George to make her aware that patient is being DC'd today and will require transportation. Myrna states she is in HS now and will be able to take patient home. CM contacted patient via phone (isolation) regarding DC needs/plans. Patient lives independently with her granddaughter, Tiera George (tr) [phone]). Emergency contact: Myrna George [phone]. PCP: Dr. Bueno. Pharmacy: [facility]. DME: rosa isela olivas cane. [phone][facility] Correct address: [address] [place] [address], [address]. Patient states that she does not have a home phone. Transportation home will be provided by her daughter, Myrna. CM will assist PRN with DC plans. Patient Name: WILFRID DE LA CRUZ Page [id number] at 1700 All edits/amendments must be made on the electronic document DICTATION DATE: 03/11/20 170 HEEL TOP LIFT SPLITTER: OSWALD 03/11/20 170 RPT#: [id number] DC DATE: STATUS: ADM IN [facility] [address] [place] [address] END OF REPORT
[2020-03-11 18:01] LABS: CEA 10.2
--- NOTE | 2020-03-12 11:25 | MORECARE ---
CASE MANAGEMENT DISCHARGE SUMMARY PATIENT: WILFRID RAZO UNIT: [id number] ADM DATE: 03/07/20 AGE: 84 : 33 SEX: F ROOM/BED: D.5044 AUTHOR: TERRELL,DOC PHYSICIAN: REFERRING PHYSICIAN: TRISTA LEBRON MD DATE OF SERVICE: 03/12/20 Discharge Plan Patient Name: WILFRID RAZO Facility: [facility]:[place] : 1935 Planned Disposition: Home Health Service Anticipated Discharge Date: 03/11/20 Discharge Date: 03/12/2020 Expected LOS: 4 Initial Reviewer: [email or web address] Initial Review Date: 03/07/2020 Generated: 03/12/20 12:25 pm Comments DCP- Discharge Planning Updated by [email or web address]: Felicita Morrison on 03/11/20 3:[address] CM contacted patient's daughter, Myrna George to make her aware that patient is being DC'd today and will require transportation. Myrna states she is in HS now and will be able to take patient home. CM contacted patient via phone (isolation) regarding DC needs/plans. Patient lives independently with her granddaughter, Tiera George (tr) [phone]). Emergency contact: Myrna George [phone]. PCP: Dr. Bueno. Pharmacy: [facility]. DME: rosa isela olivas cane. [facility] ([phone]). Correct address: [address] [place] [address], [address]. Patient states that she does not have a home phone. Transportation home will be provided by her daughter, Myrna. CM will assist PRN with DC plans. External Providers [facility] Next Contact Date: Service Request Date: Service Type: Resolution: Reviewer: Comments: Coverage Notice Reviewer: [id number] - Felicita Morrison Notice Issued Date-Time: 03/11/2020 17:34 Notice Type: IM Discharge Notice Notice Delivered To: Patient Relationship to Patient: Self Director Of Ancillary Services Name: Maritza Razo Delivery Method: - Deanna Days: Prior Verbal Notification: Recipient Understood Notice: Recipient Signature: Med Rec Note Co-signed by Attending: Coverage Notice Comment: Last DP export: 03/11/20 4:00 pm Patient Name: WILFRID RAZO Page [id number] at 1125 All edits/amendments must be made on the electronic document DICTATION DATE: 03/12/201124 ECLECTIC DOCTOR: OSWALD 03/12/205 RPT#: [id number] DC DATE:03/12/20 STATUS: DIS IN [facility] [address] [place] [address] END OF REPORT
--- NOTE | 2020-03-12 16:51 | MORECARE ---
CASE MANAGEMENT DISCHARGE SUMMARY PATIENT: WILFRID RAZO UNIT: [id number] ADM DATE: 03/07/20 AGE: 84 : 33 SEX: F ROOM/BED: D.9505 AUTHOR: TERRELL,DOC PHYSICIAN: REFERRING PHYSICIAN: TRISTA LEBRON MD DATE OF SERVICE: 03/12/20 Discharge Plan Patient Name: WILFRID RAZO Facility: [facility]:[place] : 1935 Planned Disposition: Home Health Service Anticipated Discharge Date: 03/11/20 Discharge Date: 03/12/2020 Expected LOS: 4 Initial Reviewer: [email or web address] Initial Review Date: 03/07/2020 Generated: 03/12/20 5:51 pm Comments DCP- Discharge Planning Updated by [email or web address]: Uma Tee on 03/12/20 3:[address] CM contacted Iona with [facility] for resumption of HHS. Per Iona, the patient is scheduled to be seen today. CM faxed required information to Sandy HERRERA @[phone]. DCP- Discharge Planning Updated by [id number]: Felicita Morrison on 03/11/20 3:[address] CM contacted patient's daughter, Myrna George to make her aware that patient is being DC'd today and will require transportation. Myrna states she is in HS now and will be able to take patient home. CM contacted patient via phone (isolation) regarding DC needs/plans. Patient lives independently with her granddaughter, Tiera George ([facility]) [phone]). Emergency contact: Myrna George [phone]. PCP: Dr. Bueno. Pharmacy: [facility]. DME: rosa isela olivas cane. Patient request [facility] ([phone]). Correct address: [address] [place], [address]. Patient states that she does not have a home phone. Transportation home will be provided by her daughter, Myrna. CM will assist PRN with DC plans. Coverage Notice Reviewer: [id number] - Felicita Morrison Notice Issued Date-Time: 03/11/2020 17:34 Notice Type: IM Discharge Notice Notice Delivered To: Patient Relationship to Patient: Self Build And Release Manager Name: Maritza Razo Delivery Method: - Deanna Days: Prior Verbal Notification: Recipient Understood Notice: Recipient Signature: Med Rec Note Co-signed by Attending: Coverage Notice Comment: Last DP export: 03/12/20 10:25 a Patient Name: WILFRID RAZO Page 10259 at 1651 All edits/amendments must be made on the electronic document DICTATION DATE: 03/12/201650 CHIEF PROJECTIONIST: OSWALD 03/12/201650 RPT#: [id number] DC DATE:03/12/20 STATUS: DIS IN [facility] [address] [place] [address] END OF REPORT
== END 2020-03-12 06:03 | disposition home health service (06) | DRG 602 ==
LOC: D.ER 20:20 → D.MS 03-07 00:30 → D.M2 03-07 00:30
PROVIDERS: Emergency Medicine; Family Medicine; Internal Medicine; Internal Medicine Hematology & Oncology; ADMIT Family Medicine; ATTEND Family Medicine
DX: L03.116 Cellulitis of left lower limb (principal); D61.89 Other specified aplastic anemias and other bone marrow failure syndromes; U07.1 COVID-19; N17.9 Acute kidney failure, unspecified; N18.4 Chronic kidney disease, stage 4 (severe); D63.1 Anemia in chronic kidney disease; E86.0 Dehydration; M60.9 Myositis, unspecified

== ENCOUNTER 2020-03-30 09:05 | Inpatient (IN) | payer MEDICARE ==
[~2020-03-30] VITALS: Ht 167.6 cm; Wt 44.5 kg
[~2020-03-30 09:05] MED LIST changes: +ADOXA100 MG PO; +BUMEX2 MG PO; +TORSEMIDE20 MG PO
[2020-03-30 09:48] LABS: BASOPHILS 0 % (0-2); EOSINOPHILS 0.1 % (0-7); HEMATOCRIT 39.6 % (36.0-48.0); HEMOGLOBIN 12.8 g/dL (12-16); IMMATURE GRANULOCYTES 0.3 % (0-5); LYMPHOCYTES 3.8 % (15-50); MCH 29.5 pg (26.0-34.0); MCHC 32.3 g/dL (31.0-37.0); MCV 91.2 fL (80.0-100.0); MEAN PLATELET VOLUME 11.6 fL (7.4-10.4); MONOCYTES 4.5 % (2-11); NEUTROPHILS 91.3 % (40-80); PLATELET COUNT 185 10x3/uL (130-400); RBC 4.34 10x6/uL (4.00-5.40); RDW 15.6 % (11.5-14.5); WBC 18.8 10x3/uL (4.8-10.8)
[2020-03-30 09:57] LABS: ANION GAP 18.4 mmol/L (8-16); CALCIUM 8.8 mg/dL (8.5-10.1); CARBON DIOXIDE 17.1 mmol/L (21.0-32.0); CREATININE - SERUM 3.4 mg/dL (0.6-1.3); POTASSIUM - SERUM 5.5 mmol/L (3.5-5.1)
[2020-03-30 10:18] LABS: ALBUMIN 3.4 g/dL (3.4-5.0); BILIRUBIN - TOTAL 0.53 mg/dL (0.2-1.3); PROTEIN - SERUM 6.5 g/dL (6.4-8.2)
[2020-03-30 10:28] LABS: TROPONIN-I 0.102 ng/mL (0.000-0.060)
[2020-03-30 12:42] LABS: BACTERIA FEW HPF (NONE SEEN); BILIRUBIN NEGATIVE (NEGATIVE); EPITHELIAL CELLS OCC /hpf (0-5); KETONE NEGATIVE (NEGATIVE); NITRITE NEGATIVE (NEGATIVE); UROBILINOGEN NORMAL mg/dL (< 2); WHITE CELLS - URINE OCC HPF (0-4)
[2020-03-30 14:00] VITALS: BP 113/54
[2020-03-30 15:00] VITALS: BP 105/43
[2020-03-30 16:00] VITALS: BP 112/52
[2020-03-30 18:00] VITALS: BP 115/58
[2020-03-30 20:00] VITALS: BP 127/69
[2020-03-30 20:08] VITALS: BP 127/69; BMI 15.8
[2020-03-30 23:07] LABS: HEMATOCRIT 29.1 % (36.0-48.0); HEMOGLOBIN 9.3 g/dL (12-16)
[2020-03-30 23:37] LABS: CKMB 3.2 U/L (0.0-3.6); CREATINE KINASE 21 UL (21-215)
[2020-03-30 23:39] LABS: TROPONIN-I 0.106 ng/mL (0.000-0.060)
[2020-03-31 04:00] VITALS: BP 114/64
--- NOTE | 2020-03-31 05:44 | NUR ---
COLOSTOMY BAG CHANGED DUE TO LEAKAGE, PATIENT TOLERATED WELL, MEPILEX APPLIED TO COCCYX, LINEN CHANGE, WILL CONTINUE TO MONITOR PATIENT, CALL LIGHT WITHIN REACH
[2020-03-31 08:58] VITALS: BP 102/57
[2020-03-31 09:16] LABS: BASOPHILS 0.2 % (0-2); EOSINOPHILS 0.2 % (0-7); HEMATOCRIT 26.7 % (36.0-48.0); HEMOGLOBIN 8.3 g/dL (12-16); IMMATURE GRANULOCYTES 0.2 % (0-5); LYMPHOCYTES 14.9 % (15-50); MCHC 31.1 g/dL (31.0-37.0); MONOCYTES 5.8 % (2-11); NEUTROPHILS 78.7 % (40-80); RDW 15.8 % (11.5-14.5)
[2020-03-31 09:22] LABS: ALBUMIN 2.2 g/dL (3.4-5.0); ALKALINE PHOSPHATASE 75 U/L (30-120); ALT (SGPT) 9 U/L (10-68); CALC OSMOLALITY 286 mosm/kg (275-300); CARBON DIOXIDE 12.2 mmol/L (21.0-32.0); CHLORIDE - SERUM 110 mmol/L (98-107); CKMB 3.7 U/L (0.0-3.6); CREATINE KINASE 28 UL (21-215); CREATININE - SERUM 2.9 mg/dL (0.6-1.3); LIPASE 246 U/L (73-393); MAGNESIUM - SERUM 1.1 mg/dL (1.8-2.4); POTASSIUM - SERUM 4.5 mmol/L (3.5-5.1); PROTEIN - SERUM 4.4 g/dL (6.4-8.2); SODIUM 136 mmol/L (136-145); UREA NITROGEN 60 mg/dL (7-18); eGFR NON AFRICAN AMERICAN 16 mL/min (90-120)
[2020-03-31 09:25] LABS: CALCIUM 7.3 mg/dL (8.5-10.1); GLUCOSE 70 mg/dL (74-106); TROPONIN-I 0.077 ng/mL (0.000-0.060)
[2020-03-31 10:40] LABS: MCV 93.4 fL (80.0-100.0); PLATELET COUNT 108 10x3/uL (130-400); RBC 2.86 10x6/uL (4.00-5.40); WBC 6.5 10x3/uL (4.8-10.8)
[2020-03-31 12:03] VITALS: BP 140/70
[2020-03-31 13:05] LABS: HEMATOCRIT 32.9 % (36.0-48.0); HEMOGLOBIN 10.2 g/dL (12-16)
[2020-03-31 13:38] VITALS: Ht 167.6 cm; Wt 44.5 kg
[2020-04-01 09:21] VITALS: BP 139/62
--- NOTE | 2020-04-01 09:50 | NUR ---
RESTING IN BED, NO DISTRESS NOTED, ISOLATION CONT , DENIES PAIN, IV AND PROTONIX CONT PER LAC
[2020-04-01 12:38] VITALS: BP 133/69
[2020-04-01 12:45] LABS: BASOPHILS 0 % (0-2); EOSINOPHILS 0.3 % (0-7); HEMATOCRIT 26.4 % (36.0-48.0); HEMOGLOBIN 8.6 g/dL (12-16); IMMATURE GRANULOCYTES 0.1 % (0-5); LYMPHOCYTES 11.1 % (15-50); MCH 29.8 pg (26.0-34.0); MCHC 32.6 g/dL (31.0-37.0); MCV 91.3 fL (80.0-100.0); MEAN PLATELET VOLUME 11.3 fL (7.4-10.4); MONOCYTES 5.3 % (2-11); NEUTROPHILS 83.2 % (40-80); PLATELET COUNT 105 10x3/uL (130-400); RBC 2.89 10x6/uL (4.00-5.40); RDW 15.2 % (11.5-14.5); WBC 6.9 10x3/uL (4.8-10.8)
[2020-04-01 13:06] LABS: ALBUMIN 2.4 g/dL (3.4-5.0); BILIRUBIN - TOTAL 0.27 mg/dL (0.2-1.3); CREATININE - SERUM 2.7 mg/dL (0.6-1.3); PROTEIN - SERUM 4.6 g/dL (6.4-8.2)
[2020-04-01 13:09] LABS: ANION GAP 14.8 mmol/L (8-16)
[2020-04-01 13:11] LABS: MAGNESIUM - SERUM 0.8 mg/dL (1.8-2.4); POTASSIUM - SERUM 2.8 mmol/L (3.5-5.1)
[2020-04-01 13:12] LABS: CALCIUM 6.7 mg/dL (8.5-10.1)
--- NOTE | 2020-04-01 13:17 | NUR ---
CRITICAL LABS REPORTED TO DR VELASCO AND KATIE, WILL FOLLOW PROTOCOL
--- NOTE | 2020-04-01 13:19 | MORECARE ---
CASE MANAGEMENT DISCHARGE SUMMARY PATIENT: WILFRID DE LA CRUZ UNIT: [id number] ADM DATE: 03/30/20 AGE: 84 : 33 SEX: F ROOM/BED: D.2207 AUTHOR: ROSIE TEJADA PHYSICIAN: REFERRING PHYSICIAN: KRISTIN CARTER MD DATE OF SERVICE: 04/01/20 Discharge Plan Patient Name: WILFRID DE LA CRUZ [facility] [facility] 1935 Planned Disposition: Home with Home Health Anticipated Discharge Date: Discharge Date: Expected LOS: Initial Reviewer: [email or web address] Initial Review Date: 03/30/2020 Generated: 04/01/20 2:18 pm DCPIA - Discharge Planning Initial Assessment Updated by [email or web address]: Mague Harding on 04/01/20 1:16 pm * Is the patient Alert and Oriented? Yes * PCP LUIS ALFREDO * Pharmacy [facility] IN [place] * Preadmission Environment Home with Family * ADLs Independent * Equipment Bedside Commode Cane Rolling Walker Shower Chair Walker Wheelchair * List name and contact numbers for known caregivers / representatives who currently or will assist patient after discharge: BEATRIZ ( GRAND DAUGHTER) [phone] * Verbal permission to speak to the caregivers and representatives has been obtained from the patient. No * Community resources currently utilized Home Health * Please name any agencies selected above. [facility] [place] * Additional services required to return to the preadmission environment? No * Can the patient safely return to the preadmission environment? Yes * Has this patient been hospitalized within the prior 30 days at any hospital? Yes Patient Name: WILFRID DE LA CRUZ Page 15847 at 1319 All edits/amendments must be made on the electronic document DICTATION DATE: 04/01/20 1318 ASP NET MVC DEVELOPER: OSWALD 04/01/20 1318 RPT#: [id number] DC DATE: STATUS: ADM IN [facility] [address] [place] [address] END OF REPORT
--- NOTE | 2020-04-01 13:30 | MORECARE ---
CASE MANAGEMENT DISCHARGE SUMMARY PATIENT: WILFRID DE LA CRUZ UNIT: [id number] ADM DATE: 03/30/20 AGE: 84 : 33 SEX: F ROOM/BED: D.2207 AUTHOR: ROSIE TEJADA PHYSICIAN: REFERRING PHYSICIAN: KRISTIN CARTER MD DATE OF SERVICE: 04/01/20 Discharge Plan Patient Name: WILFRID DE LA CRUZ Facility: [facility]:[place] : 1935 Planned Disposition: Home with Home Health Anticipated Discharge Date: Discharge Date: Expected LOS: Initial Reviewer: [email or web address] Initial Review Date: 03/30/2020 Generated: 04/01/20 2:29 pm Comments DCP- Discharge Planning Updated by [id number]: Mague Harding on 04/01/20 12:[address] Patient Name: WILFRID DE LA CRUZ Admission Status: ER Accout number: [id number] Admission Date: 03-30-2020 : 1935 Admission Diagnosis:GASTROINTESTINAL HEMORRHAGE, UNSPECIFIED Attending: KRISTIN JO Current LOS: 2 Anticipated DC Date: Planned Disposition: Home with Home Health Primary Insurance: WE[employer] MEDICARE ADV Discharge Planning Comments: CM called patient over the phone and spoke with patient to complete initial dc planning assessment. CM educated patient on the CM role and verbal consent given by patient to complete assessment. Patient lives at home where her granddaughter and her kids live with her. At discharge patient plans to return home and feels this is a safe discharge. CM discussed availability of home health, rehab services, and medical equipment. She is current with [facility] in [place] and wants to continue to use them. She stated that she is independent with her care at home. She has a walker, WC, cane, BSC, cane and shower chair, but does not need to use any of those at this time. Patient denied known discharge needs at this time. CM will continue to follow and will assist as needed with dc plans/needs. Ocular Care Aide: Mague Harding DCPIA - Discharge Planning Initial Assessment Updated by [email or web address]: Mague Harding on 04/01/20 1:16 pm * Is the patient Alert and Oriented? Yes * PCP LUIS ALFREDO * Pharmacy [facility] IN [place] * Preadmission Environment Home with Family * ADLs Independent * Equipment Bedside Commode Cane Rolling Walker Shower Chair Walker Wheelchair * List name and contact numbers for known caregivers / representatives who currently or will assist patient after discharge: BEATRIZ ( GRAND DAUGHTER) [phone] * Verbal permission to speak to the caregivers and representatives has been obtained from the patient. No * Community resources currently utilized Home Health * Please name any agencies selected above. [facility] [place] * Additional services required to return to the preadmission environment? No * Can the patient safely return to the preadmission environment? Yes * Has this patient been hospitalized within the prior 30 days at any hospital? Yes Last DP export: 04/01/20 12:19 p Patient Name: WILFRID DE LA CRUZ Page 92619 at 1330 All edits/amendments must be made on the electronic document DICTATION DATE: 04/01/20 1329 PULP DRIER: OSWALD 04/01/20 1329 RPT#: [id number] DC DATE: STATUS: ADM IN [facility] [address] [place] [address] END OF REPORT
--- NOTE | 2020-04-01 19:30 | NUR ---
PT VOMITTING GREEN-CLEAR LIQUID. ZOFRAN GIVEN BUT DID NOT HELP. CALLED KISHAN CURTIS APN AND HE GAVE ME AN ORDER FOR COMPAZINE X 1 DOSE. 2200- PT RESTING WITH EYES CLOSED. RESPIRATIONS EVEN AND UNLABORED. SHE AROUSES WITH VERBAL STIMULI. SHE STATES SHE FEELS BETTER. BED IS LOW AND CALL LIGHT WITHIN REACH. PT TO CALL IF NAUSEA/VOMITING START UP AGAIN. SHE VERBALIZED UNDERSTANDING. VSS. BED LOW AND SOLANGE ALARM ON. SIDE RAILS UP X 2. CALL LIGHT WITHIN REACH.
[2020-04-02 00:21] VITALS: BP 131/54
[2020-04-02 04:00] VITALS: BP 80/59
[2020-04-02 07:18] LABS: ALBUMIN 2.3 g/dL (3.4-5.0); BILIRUBIN - TOTAL 0.33 mg/dL (0.2-1.3); CALCIUM 7.1 mg/dL (8.5-10.1); CARBON DIOXIDE 19.4 mmol/L (21.0-32.0); CREATININE - SERUM 2.6 mg/dL (0.6-1.3); PHOSPHOROUS 2.8 mg/dL (2.5-4.9); PROTEIN - SERUM 4.3 g/dL (6.4-8.2)
[2020-04-02 07:19] LABS: ANION GAP 14.1 mmol/L (8-16); MAGNESIUM - SERUM 1.9 mg/dL (1.8-2.4); POTASSIUM - SERUM 3.5 mmol/L (3.5-5.1)
[2020-04-02 08:04] LABS: BASOPHILS 0.1 % (0-2); EOSINOPHILS 0.1 % (0-7); IMMATURE GRANULOCYTES 0.2 % (0-5); LYMPHOCYTES 4.9 % (15-50); MCH 29.6 pg (26.0-34.0); MCHC 32.5 g/dL (31.0-37.0); MCV 90.9 fL (80.0-100.0); MEAN PLATELET VOLUME 12.5 fL (7.4-10.4); MONOCYTES 6.5 % (2-11); NEUTROPHILS 88.2 % (40-80)
[2020-04-02 08:07] LABS: HEMATOCRIT 32.9 % (36.0-48.0); HEMOGLOBIN 10.7 g/dL (12-16); PLATELET COUNT 146 10x3/uL (130-400); RBC 3.62 10x6/uL (4.00-5.40); WBC 15.4 10x3/uL (4.8-10.8)
[2020-04-02 09:02] VITALS: BP 143/68
--- NOTE | 2020-04-02 10:47 | EC ---
PATIENT:WILFRID DE LA CRUZ DATE OF SERVICE: 03/30/20 SEX: F MEDICAL RECORD: [id number] DATE OF : [birth year] LOCATION:D.MS [place] AGE OF PATIENT: 84 ADMISSION DATE: 03/30/20 REFERRING PHYSICIAN: INTERPRETING PHYSICIAN: RANDALL BEGUM MD ECHOCARDIOGRAM REPORT ECHO CHARGES 4 ECHO COMPLETE Date: 04/01/20 CLINICAL DIAGNOSIS: CMP ECHOCARDIOGRAPHIC MEASUREMENTS (adult normal given) AC root (d.<3.7cm) 3.0 cm LV Septum d (<1.2 cm> 0.7 cm Valve Excursion 1.3 cm LV Septum (systole) 1.1 cm Left Atria (s.<4.0cm> 3.6 cm LVPW d(<1.2cm) 1.1 cm RV (d.<2.3cm) 2.6 cm LVPW (sytole) 1.4 cm LV diastole(<5.6CM) 6.4 cm MV E-F(>70mm/sec) cm LV systole 5.0 cm LVOT Diameter 1.7 cm MV exc.(>10mm) 1.0 cm Est.ejection fraction (50-75%) % DOPPLER: LVIT cm/sec A 103 cm/sec E 70 cm/sec LA cm/sec RVSP 34 mmHg LVOT 112 cm/sec AOP1/2T m/s Asc. Ao 131 cm/sec RVOT 65 cm/sec RA cm/sec PA 121 cm/sec AV Gradient Peak 6.9 mmHg AV Mean 3.5 mmHg AV Area 2.0 cm MV Gradient Peak 6.4 mmHg MV Mean 2.0 mmHg MV Area cm COMMENTS: Fire And Safety Helper: Lionel [facility] Operator Engineer: 3 Dr. Hooper TAPE# PACS Pericardial Effusion Y DATE OF SERVICE: Adequate 2D, color flow imaging, spectral Doppler, and M-Mode. No LVH. LV internal dimension is normal. Wall motion is normal. EF is greater than or equal to 55%. Aortic valve is tricuspid. No evidence of stenosis by Doppler interrogation. Left atrium normal at 3.6 cm. Mitral valve shows no prolapse. Trace MR. Right-sided chambers are grossly normal. Trace TR. TRANSINT:[id number] Voice Confirmation ID: [id number] DOCUMENT ID: [id number] ECHOCARDIOGRAM REPORT [id number] WILFRID DE LA CRUZ RANDALL BEGUM MD at 1047 CC: [id number] DICTATION DATE: 04/01/20 1642 SOLAR ENERGY TECHNICIAN: 04/01/20 2323 ADM IN [place] [id number] [place] [id number]
[2020-04-02 13:22] VITALS: BP 126/67
--- NOTE | 2020-04-02 14:55 | NUR ---
Nutrition follow-up: Pt continues with N/V NPO 2/2 not tolerating clear liquids Wt: 97# Labs reviewed Recommend starting ProcalAmine PPN @ 50 ml/hr RDN following.
[2020-04-02 20:00] VITALS: BP 102/62
[2020-04-03] VITALS: BP 115/61
[2020-04-03 04:00] VITALS: BP 87/60
[2020-04-03 05:41] LABS: BASOPHILS 0 % (0-2); EOSINOPHILS 0.1 % (0-7); HEMATOCRIT 32.1 % (36.0-48.0); HEMOGLOBIN 10.5 g/dL (12-16); IMMATURE GRANULOCYTES 0.3 % (0-5); LYMPHOCYTES 8.1 % (15-50); MCH 29.4 pg (26.0-34.0); MCHC 32.7 g/dL (31.0-37.0); MCV 89.9 fL (80.0-100.0); MEAN PLATELET VOLUME 12.5 fL (7.4-10.4); MONOCYTES 6.8 % (2-11); NEUTROPHILS 84.7 % (40-80); PLATELET COUNT 156 10x3/uL (130-400); RBC 3.57 10x6/uL (4.00-5.40); RDW 14.8 % (11.5-14.5); WBC 15.6 10x3/uL (4.8-10.8)
[2020-04-03 06:11] LABS: ALBUMIN 2.2 g/dL (3.4-5.0); ANION GAP 13.5 mmol/L (8-16); BILIRUBIN - TOTAL 0.39 mg/dL (0.2-1.3); CALCIUM 7.7 mg/dL (8.5-10.1); CARBON DIOXIDE 25.1 mmol/L (21.0-32.0); CREATININE - SERUM 3.4 mg/dL (0.6-1.3); MAGNESIUM - SERUM 1.9 mg/dL (1.8-2.4); PHOSPHOROUS 3.8 mg/dL (2.5-4.9); POTASSIUM - SERUM 4.6 mmol/L (3.5-5.1); PROTEIN - SERUM 4.7 g/dL (6.4-8.2)
[2020-04-03 09:03] VITALS: BP 125/68
[2020-04-03 13:59] VITALS: BP 126/69
--- NOTE | 2020-04-03 16:52 | NUR ---
REPORT CALLED TO [facility] NURSE SYEDA.
--- NOTE | 2020-04-03 19:00 | NUR ---
1730--PT ADMITTED TO ROOM 2131 FROM MED SURGE FOR COVID + ISOLATION--ALL PRECAUTIONS IN PLACE. PT HAS NO IV ACCESS--20GA IV PLACED TO PT'S LEFT AC AT THIS TIME--LR @100CC'S IN PROGRESS ALL OTHER MEDS ADMISTERED/ORDER, PT TOLERTED ALL WELL. NO DISTRESS NOTED. PT REQUEST SUPPER--THIS NURSE EXPLAINS THAT SHE IS NPO AND UNABLE TO EAT OR DRINK ANYTHING W/UNDERSTANDING STATED TO ALL.
--- NOTE | 2020-04-03 19:30 | NUR ---
PT IN BED, AAO X 1, RESP EVEN AND UNLABORED, NO DISTRESS NOTED, CL IN REACH, SR UP X 2.
[2020-04-03 20:53] VITALS: BP 119/50
--- NOTE | 2020-04-04 03:15 | NUR ---
I have reviewed this patient and I concur with the Shift Assessment completed by the Licensed Practical Nurse today this shift.
--- NOTE | 2020-04-04 05:30 | NUR ---
EVELINE SEGURA RESITED 20G. IV TO L. UPPER ARM, LR INFUSING @75
[2020-04-04 05:44] VITALS: BP 107/64
--- NOTE | 2020-04-04 07:00 | NUR ---
RECIEVED REPORT. ASSUMED CARE OF PATIENT. PATIENT REMAINS IN DROPLET ISOLATION FOR COVID 19.
[2020-04-04 08:01] VITALS: BP 103/43
[2020-04-04 08:02] LABS: BASOPHILS 0 % (0-2); EOSINOPHILS 0.2 % (0-7); HEMATOCRIT 26.4 % (36.0-48.0); IMMATURE GRANULOCYTES 0.1 % (0-5); LYMPHOCYTES 9.5 % (15-50); MCH 28.7 pg (26.0-34.0); MCHC 31.4 g/dL (31.0-37.0); MCV 91.3 fL (80.0-100.0); MEAN PLATELET VOLUME 12.5 fL (7.4-10.4); MONOCYTES 6.4 % (2-11); NEUTROPHILS 83.8 % (40-80); RBC 2.89 10x6/uL (4.00-5.40); RDW 14.6 % (11.5-14.5)
[2020-04-04 08:21] LABS: WBC 8.5 10x3/uL (4.8-10.8)
[2020-04-04 08:22] LABS: HEMOGLOBIN 8.3 g/dL (12-16); PLATELET COUNT 123 10x3/uL (130-400)
[2020-04-04 08:23] LABS: ALBUMIN 2.1 g/dL (3.4-5.0); ANION GAP 10.5 mmol/L (8-16); BILIRUBIN - TOTAL 0.5 mg/dL (0.2-1.3); CALCIUM 7.4 mg/dL (8.5-10.1); CARBON DIOXIDE 26.7 mmol/L (21.0-32.0); CREATININE - SERUM 3.3 mg/dL (0.6-1.3); MAGNESIUM - SERUM 1.8 mg/dL (1.8-2.4); PHOSPHOROUS 4.4 mg/dL (2.5-4.9); POTASSIUM - SERUM 4.2 mmol/L (3.5-5.1); PROTEIN - SERUM 4.2 g/dL (6.4-8.2)
--- NOTE | 2020-04-04 09:27 | NUR ---
20 gauge iv placed to left ac x 1 stick. good blood return, easy flush. patient tolerated iv placement well. taped, dated, and secured. no distress. lr infusing at at 75ml/hr at this time as ordered. patient also receiving flagyl at this time.
[2020-04-04 11:09] VITALS: BP 128/62
--- NOTE | 2020-04-04 12:49 | NUR ---
PATIENT HAS TAKEN COLOSTOMY BAG OFF ONCE AGAIN AND FECES ARE ALL OVER PATIENT ROOM AND AND THE PATEINT. CARES RENDERED AND NEW COLOSTOMY BAG APPLIED. PATIENT SITTING AT BEDSIDE AT THIS TIME. REMAINS IN ISOLATION FOR COVID.
--- NOTE | 2020-04-04 13:08 | NUR ---
1230-PT STANDING AT SINK IN ROOM W/GOWN OFF HAS COLOSTOMY BAG OFF AND WASHING IT OUT IN THE SINK, STATES "IT GOT TO FULL AND MADE A MESS" ASSISTED PT INTO A CLEAN GOWN, CHANGED PT'S COLOSTOMY AND PLACED A NEW COLOSTOMY IN ITS PLACE. CHANGED PT'S BEDDING, ASSISTED PT BACK TO BED. PT REQUEST SOMETHING TO EAT, VERBALLY EXPLAINED TO PT THAT SHE IS NPO/DR'S ORDER W/UNDERSTANDING STATED TO ALL. DENIES ANY FURTHER NEEDS AT THIS TIME.
[2020-04-04 16:11] VITALS: BP 148/72
--- NOTE | 2020-04-04 19:20 | NUR ---
RECEIVED REPORT, WILL ASSUME CARE OF PT, PT WALKING OUT OF ROOM SAYING SHE NEEDS COLOSTOMY EMPTY, EXPLAIN SHE IS IN ISO, I WILL GOWN UP AND BE IN HER ROOM, IV-R.HAND-LR @75, PT ALSO ASKING FOR FOOD AND SOMETHING TO DRINK, EXPLAINED SHE IS NPO, BED IS LOW, SRX2, CALL LIGHT IN REACH, WILL CONTINUE PLAN OF CARE
[2020-04-04 20:18] VITALS: BP 117/58
--- NOTE | 2020-04-05 03:29 | NUR ---
I have reviewed this patient and I concur with the Shift Assessment completed by the Licensed Practical Nurse today this shift.
[2020-04-05 04:45] VITALS: BP 131/71
--- NOTE | 2020-04-05 08:00 | NUR ---
UPON WALKING INTO ROOM, IV WAS LAYING ON FLOOR. WHEN ASKED WHY THE PT PULLED IT OUT, SHE STATED SHE DID NOT PULL IT OUT AND THAT IT WAS LEFT FROM LAST NIGHT. NO BLEEDING NOTED ANYWHERE. WILL RESTART IV. STATES SHE IS WANTING TO GO HOME. TOLD HER THE DR. DOES NOT THINK SHE IS READY FOR D/C. BED IN LOWEST POSITION. CALL LIGHT WITHIN REACH. WILL CONTINUE TO MONITOR.
[2020-04-05 09:06] VITALS: BP 126/63
[2020-04-05 12:00] VITALS: BP 149/107
[2020-04-05 14:43] LABS: BASOPHILS 0.1 % (0-2); EOSINOPHILS 0.4 % (0-7); HEMATOCRIT 30.1 % (36.0-48.0); HEMOGLOBIN 9.5 g/dL (12-16); IMMATURE GRANULOCYTES 0.4 % (0-5); LYMPHOCYTES 12.6 % (15-50); MCH 29.5 pg (26.0-34.0); MCHC 31.6 g/dL (31.0-37.0); MEAN PLATELET VOLUME 11.1 fL (7.4-10.4); MONOCYTES 4.9 % (2-11); NEUTROPHILS 81.6 % (40-80); PLATELET COUNT 145 10x3/uL (130-400); RBC 3.22 10x6/uL (4.00-5.40); RDW 14.2 % (11.5-14.5); WBC 8.3 10x3/uL (4.8-10.8)
[2020-04-05 14:55] LABS: ALBUMIN 2.3 g/dL (3.4-5.0); BILIRUBIN - TOTAL 0.47 mg/dL (0.2-1.3); CALCIUM 7.4 mg/dL (8.5-10.1); CREATININE - SERUM 2.9 mg/dL (0.6-1.3); MAGNESIUM - SERUM 1.7 mg/dL (1.8-2.4); MCV 93.5 fL (80.0-100.0); PHOSPHOROUS 4.5 mg/dL (2.5-4.9); POTASSIUM - SERUM 4.3 mmol/L (3.5-5.1); PROTEIN - SERUM 4.3 g/dL (6.4-8.2)
[2020-04-05 14:56] LABS: ANION GAP 18.8 mmol/L (8-16); CARBON DIOXIDE 18.5 mmol/L (21.0-32.0)
[2020-04-05 16:01] VITALS: BP 160/90
--- NOTE | 2020-04-05 17:19 | NUR ---
I have reviewed this patient and I concur with the Shift Assessment completed by the Licensed Practical Nurse today this shift.
--- NOTE | 2020-04-05 19:30 | NUR ---
RECEIVED REPORT, WILL ASSUME CARE OF PT, SLEEPING, NO DISTRESS NOTICED AT THIS TIME, BED IS LOW, SRX2, CALL LIGHT IN REACH, WILL CONTINUE PLAN OF CARE
[2020-04-05 21:30] VITALS: BP 115/52
--- NOTE | 2020-04-06 03:30 | NUR ---
I have reviewed this patient and I concur with the Shift Assessment completed by the Licensed Practical Nurse today this shift.
[2020-04-06 04:35] VITALS: BP 138/55
[2020-04-06 06:25] LABS: BASOPHILS 0 % (0-2); EOSINOPHILS 0.2 % (0-7); HEMOGLOBIN 8.8 g/dL (12-16); IMMATURE GRANULOCYTES 0.4 % (0-5); MCH 29.3 pg (26.0-34.0); MCHC 31.4 g/dL (31.0-37.0); MCV 93.3 fL (80.0-100.0); MEAN PLATELET VOLUME 11.8 fL (7.4-10.4); MONOCYTES 5.3 % (2-11); NEUTROPHILS 84.1 % (40-80); PLATELET COUNT 157 10x3/uL (130-400); RDW 14.4 % (11.5-14.5); WBC 8.3 10x3/uL (4.8-10.8)
[2020-04-06 06:44] LABS: ALBUMIN 2.1 g/dL (3.4-5.0); ANION GAP 20.8 mmol/L (8-16); BILIRUBIN - TOTAL 0.46 mg/dL (0.2-1.3); CALCIUM 7.4 mg/dL (8.5-10.1); CARBON DIOXIDE 15.4 mmol/L (21.0-32.0); CREATININE - SERUM 2.8 mg/dL (0.6-1.3); MAGNESIUM - SERUM 1.7 mg/dL (1.8-2.4); PHOSPHOROUS 4.6 mg/dL (2.5-4.9); POTASSIUM - SERUM 4.2 mmol/L (3.5-5.1)
--- NOTE | 2020-04-06 08:12 | NUR ---
25ml d50 given and checked fsbs now 180. pt lying in bed with no complaints at this time. bed low. cl in reach. will continue to monitor.
[2020-04-06 08:14] VITALS: BP 147/96
--- NOTE | 2020-04-06 08:30 | NUR ---
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 SPOKE WITH SEGUNDO HUDSONVEST TAILOR ABOUT THIS AND SHE STATES SHE WILL TAKE A LOOK AT IT. I VERBALIZED UNDERSTANDING.
[2020-04-06 11:20] VITALS: BP 136/57
--- NOTE | 2020-04-06 14:02 | NUR ---
REPORTED TO TERE WIGGINS ABOUT SOFT ROUND PERTRUDING ON COCCYX WITH A STAGE 2 AND THAT SEGUNDO OXYHYDROGEN WELDER IS SUPPOSSED TO LOOK AT IT. HE VERBALIZED UNDERSTANDING AND STATES THAT IT IS PROBABLY A LIPOMA. I VERBALIZED UNDERSTANDING.
--- NOTE | 2020-04-06 15:07 | NUR ---
Nutrition Follow-up: Per MD notes- patient denies abdominal pain today. No recent N/V. Small amount of stool in colostomy bag. Declines surgery. Diet: NPO Recommend initiate PPN/TPN if unable to feed patient enerterally as patient has been without nutrition x 5 days now.
[2020-04-06 15:29] VITALS: BP 130/61
--- NOTE | 2020-04-06 15:37 | NUR ---
I have reviewed this patient and I concur with the Shift Assessment completed by the Licensed Practical Nurse today this shift.
[2020-04-06 20:37] VITALS: BP 151/57
[2020-04-07 05:15] LABS: BASOPHILS 0 % (0-2); EOSINOPHILS 0.7 % (0-7); HEMATOCRIT 28.4 % (36.0-48.0); HEMOGLOBIN 8.8 g/dL (12-16); IMMATURE GRANULOCYTES 0.4 % (0-5); LYMPHOCYTES 14.6 % (15-50); MCH 28.6 pg (26.0-34.0); MCV 92.2 fL (80.0-100.0); MEAN PLATELET VOLUME 10.3 fL (7.4-10.4); MONOCYTES 6.1 % (2-11); NEUTROPHILS 78.2 % (40-80); PLATELET COUNT 157 10x3/uL (130-400); RBC 3.08 10x6/uL (4.00-5.40); RDW 14.4 % (11.5-14.5); WBC 6.9 10x3/uL (4.8-10.8)
[2020-04-07 05:34] LABS: ALBUMIN 2.1 g/dL (3.4-5.0); ANION GAP 25.1 mmol/L (8-16); BILIRUBIN - TOTAL 0.44 mg/dL (0.2-1.3); CALCIUM 7.2 mg/dL (8.5-10.1); CARBON DIOXIDE 13.9 mmol/L (21.0-32.0); CREATININE - SERUM 2.6 mg/dL (0.6-1.3); MAGNESIUM - SERUM 2.1 mg/dL (1.8-2.4); PHOSPHOROUS 3.8 mg/dL (2.5-4.9)
--- NOTE | 2020-04-07 08:17 | NUR ---
PT RECEIVED ASLEEP IN BED. IV INFUSING. CAMERA AT NURSE STATION IN USE.
[2020-04-07 08:25] VITALS: BP 123/62
[2020-04-07 11:30] VITALS: BP 129/68
--- NOTE | 2020-04-07 14:51 | NUR ---
PT SLEEPING ON ARRIVAL TO ROOM. GIVEN LIQUID DIET FOR LUNCH. POSITIONED FOR COMFORT.
--- NOTE | 2020-04-07 15:06 | NUR ---
Pt has a large soft mass at intergluteal cleft. She states it has been there for a long time. It is non-painful. MD is aware.
--- NOTE | 2020-04-07 15:49 | MORECARE ---
CASE MANAGEMENT DISCHARGE SUMMARY PATIENT: WILFRID DE LA CRUZ UNIT: [id number] ADM DATE: 03/30/20 AGE: 84 : 33 SEX: F ROOM/BED: D.2131 AUTHOR: TERRELLDOC PHYSICIAN: REFERRING PHYSICIAN: KRISTIN CARTER MD DATE OF SERVICE: 04/07/20 Discharge Plan Patient Name: WILFRID DE LA CRUZ Facility: [facility]:[place] : 1935 Planned Disposition: Home with Home Health Anticipated Discharge Date: Discharge Date: Expected LOS: Initial Reviewer: [email or web address] Initial Review Date: 03/30/2020 Generated: 04/07/20 4:49 pm Comments DCP- Discharge Planning Updated by [email or web address]: Uma Melgoza on 04/07/20 2:[address] Patient Name: WILFRID DE LA CRUZ Admission Status: ER Accout number: [id number] Admission Date: 03-30-2020 : 1935 Admission Diagnosis:GASTROINTESTINAL HEMORRHAGE, UNSPECIFIED Attending: KRISTIN JO Current LOS: 8 Anticipated DC Date: Planned Disposition: Home with Home Health Primary Insurance: [employer] MEDICARE ADV Discharge Planning Comments: CM called Myrna (DTR) at [phone] about dc plan. Myrna states the patient lives with the pt grand daughter. CM instructed that the patient will require 24 hour care. Myrna states she will not allow her mother to go into a home. Myrna states she will speak with the rest of the family about hospice at home. Myrna would like CM to call her tomorrow with the decision about hospice care. Uma Melgoza MSN,RN,CM Videotape Operator: Uma Melgoza DCP- Discharge Planning Updated by [email or web address]: Mague Harding on 04/01/20 12:[address] Patient Name: WILFRID DE LA CRUZ Admission Status: ER Accout number: [id number] Admission Date: 03-30-2020 : 1935 Admission Diagnosis:GASTROINTESTINAL HEMORRHAGE, UNSPECIFIED Attending: KRISTIN JO Current LOS: 2 Anticipated DC Date: Planned Disposition: Home with Home Health Primary Insurance: WE[employer] MEDICARE ADV Discharge Planning Comments: CM called patient over the phone and spoke with patient to complete initial dc planning assessment. CM educated patient on the CM role and verbal consent given by patient to complete assessment. Patient lives at home where her granddaughter and her kids live with her. At discharge patient plans to return home and feels this is a safe discharge. CM discussed availability of home health, rehab services, and medical equipment. She is current with [facility] in [place] and wants to continue to use them. She stated that she is independent with her care at home. She has a walker, WC, cane, BSC, cane and shower chair, but does not need to use any of those at this time. Patient denied known discharge needs at this time. CM will continue to follow and will assist as needed with dc plans/needs. Videotape Operator: Mague Harding [facility] Initial Assessment Updated by [email or web address]: Mague Harding on 04/01/20 1:16 pm * Is the patient Alert and Oriented? Yes * PCP LUIS ALFREDO * Pharmacy [facility] IN [place] * Preadmission Environment Home with Family * ADLs Independent * Equipment Bedside Commode Cane Rolling Walker Shower Chair Walker Wheelchair * List name and contact numbers for known caregivers / representatives who currently or will assist patient after discharge: BEATRIZ ( GRAND DAUGHTER) [phone] * Verbal permission to speak to the caregivers and representatives has been obtained from the patient. No * Community resources currently utilized Home Health * Please name any agencies selected above. [facility] [place] * Additional services required to return to the preadmission environment? No * Can the patient safely return to the preadmission environment? Yes * Has this patient been hospitalized within the prior 30 days at any hospital? Yes Last DP export: 04/01/20 12:29 p Patient Name: WILFRID DE LA CRUZ Page 14321 at 1549 All edits/amendments must be made on the electronic document DICTATION DATE: 04/07/201548 INSTRUCTOR ADJUNCT SURGICAL TECHNICIAN: OSWALD 04/07/201548 RPT#: [id number] DC DATE: STATUS: ADM IN [facility] [address] [place] [address] END OF REPORT
[2020-04-07 16:26] VITALS: BP 142/73
--- NOTE | 2020-04-07 19:30 | NUR ---
PT IN BED, EYES CLOSED, RESP EVEN AND UNLABORED, NO DISTRESS NOTED, CL IN REACH, SR UP X 2.
[2020-04-07 20:00] VITALS: BP 123/57
--- NOTE | 2020-04-07 23:59 | NUR ---
COLOSTOMY WAFER AND BAG CHANGED AT THIS TIME.
[2020-04-08] VITALS: BP 129/54
[2020-04-08 04:00] VITALS: BP 132/74
[2020-04-08 04:02] LABS: BASOPHILS 0.2 % (0-2); EOSINOPHILS 1.4 % (0-7); HEMATOCRIT 24.7 % (36.0-48.0); HEMOGLOBIN 7.9 g/dL (12-16); IMMATURE GRANULOCYTES 0.2 % (0-5); LYMPHOCYTES 17.5 % (15-50); MCH 28.9 pg (26.0-34.0); MCV 90.5 fL (80.0-100.0); MEAN PLATELET VOLUME 11.1 fL (7.4-10.4); MONOCYTES 9.7 % (2-11); RBC 2.73 10x6/uL (4.00-5.40); RDW 14.3 % (11.5-14.5)
[2020-04-08 04:03] LABS: PLATELET COUNT 124 10x3/uL (130-400); WBC 4.2 10x3/uL (4.8-10.8)
[2020-04-08 04:22] LABS: ALBUMIN 1.7 g/dL (3.4-5.0); BILIRUBIN - TOTAL 0.32 mg/dL (0.2-1.3); CREATININE - SERUM 2.4 mg/dL (0.6-1.3); MAGNESIUM - SERUM 1.7 mg/dL (1.8-2.4); PHOSPHOROUS 3.1 mg/dL (2.5-4.9); PROTEIN - SERUM 3.4 g/dL (6.4-8.2)
[2020-04-08 04:35] LABS: ANION GAP 10.8 mmol/L (8-16); CALCIUM 6.8 mg/dL (8.5-10.1); CARBON DIOXIDE 28.3 mmol/L (21.0-32.0); POTASSIUM - SERUM 3.1 mmol/L (3.5-5.1)
--- NOTE | 2020-04-08 07:39 | NUR ---
PT RECEIVED ASLEEP IN BED. NO SIGNS OF DISTRESS. CALL LIGHT IN REACH.
[2020-04-08 08:45] VITALS: BP 142/51
--- NOTE | 2020-04-08 10:20 | MORECARE ---
CASE MANAGEMENT DISCHARGE SUMMARY PATIENT: WILFRID DE LA CRUZ UNIT: [id number] ADM DATE: 03/30/20 AGE: 84 : 31 SEX: F ROOM/BED: D.2131 AUTHOR: TERRELLDOC PHYSICIAN: REFERRING PHYSICIAN: KRISTIN CARTER MD DATE OF SERVICE: 04/08/20 Discharge Plan Patient Name: WILFRID DE LA CRUZ Facility: [facility]:[place] : 1935 Planned Disposition: Home with Home Health Anticipated Discharge Date: Discharge Date: Expected LOS: Initial Reviewer: [email or web address] Initial Review Date: 03/30/2020 Generated: 04/08/20 11:20 am Comments DCP- Discharge Planning Updated by [email or web address]: Uma Melgoza on 04/07/20 2:[address] Patient Name: WILFRID DE LA CRUZ Admission Status: ER Accout number: [id number] Admission Date: 03-30-2020 : 1935 Admission Diagnosis:GASTROINTESTINAL HEMORRHAGE, UNSPECIFIED Attending: KRISTIN JO Current LOS: 8 Anticipated DC Date: Planned Disposition: Home with Home Health Primary Insurance: WE[employer] MEDICARE ADV Discharge Planning Comments: CM called Myrna (DTR) at [phone] about dc plan. Myrna states the patient lives with the pt grand daughter. CM instructed that the patient will require 24 hour care. Myrna states she will not allow her mother to go into a home. Myrna states she will speak with the rest of the family about hospice at home. Myrna would like CM to call her tomorrow with the decision about hospice care. Uam Melgoza MSN,RN,CM Oil Expert: Uma Melgoza DCP- Discharge Planning Updated by [id number]: Mague Harding on 04/01/20 12:[address] Patient Name: WILFRID DE LA CRUZ Admission Status: ER Accout number: [id number] Admission Date: 03-30-2020 : 1935 Admission Diagnosis:GASTROINTESTINAL HEMORRHAGE, UNSPECIFIED Attending: KRISTIN JO Current LOS: 2 Anticipated DC Date: Planned Disposition: Home with Home Health Primary Insurance: WE[employer] MEDICARE ADV Discharge Planning Comments: CM called patient over the phone and spoke with patient to complete initial dc planning assessment. CM educated patient on the CM role and verbal consent given by patient to complete assessment. Patient lives at home where her granddaughter and her kids live with her. At discharge patient plans to return home and feels this is a safe discharge. CM discussed availability of home health, rehab services, and medical equipment. She is current with [facility] in [place] and wants to continue to use them. She stated that she is independent with her care at home. She has a walker, WC, cane, BSC, cane and shower chair, but does not need to use any of those at this time. Patient denied known discharge needs at this time. CM will continue to follow and will assist as needed with dc plans/needs. Oil Expert: Mague Harding DCPIA - Discharge Planning Initial Assessment Updated by [email or web address]: Mague Harding on 04/01/20 1:16 pm * Is the patient Alert and Oriented? Yes * PCP LUIS ALFREDO * Pharmacy [facility] IN [place] * Preadmission Environment Home with Family * ADLs Independent * Equipment Bedside Commode Cane Rolling Walker Shower Chair Walker Wheelchair * List name and contact numbers for known caregivers / representatives who currently or will assist patient after discharge: BEATRIZ ( GRAND DAUGHTER) [phone] * Verbal permission to speak to the caregivers and representatives has been obtained from the patient. No * Community resources currently utilized Home Health * Please name any agencies selected above. [facility] [place] * Additional services required to return to the preadmission environment? No * Can the patient safely return to the preadmission environment? Yes * Has this patient been hospitalized within the prior 30 days at any hospital? Yes External Providers External Provider: STEVEAisha at [facility] Next Contact Date: Service Request Date: Service Type: Resolution: Reviewer: Comments: Last DP export: 04/07/20 2:49 p Patient Name: WILFRID DE LA CRUZ Page 93217 at 1020 All edits/amendments must be made on the electronic document DICTATION DATE: 04/08/20 1020 PHONE OPERATOR: OSWALD 04/08/20 1020 RPT#: [id number] DC DATE: STATUS: ADM IN [facility] [address] [facility] [place] [address] END OF REPORT
--- NOTE | 2020-04-08 11:47 | MORECARE ---
CASE MANAGEMENT DISCHARGE SUMMARY PATIENT: WILFRID DE LA CRUZ UNIT: [id number] ADM DATE: 03/30/20 AGE: 84 : 33 SEX: F ROOM/BED: D.2131 AUTHOR: TERRELLDOC PHYSICIAN: REFERRING PHYSICIAN: KRISTIN CARTER MD DATE OF SERVICE: 04/08/20 Discharge Plan Patient Name: WILFRID DE LA CRUZ Facility: [facility]:[place] : 1935 Planned Disposition: Home with Home Health Anticipated Discharge Date: Discharge Date: Expected LOS: Initial Reviewer: [email or web address] Initial Review Date: 03/30/2020 Generated: 04/08/20 12:46 pm Comments DCP- Discharge Planning Updated by [email or web address]: Uma Melgoza on 04/07/20 2:[address] Patient Name: WILFRID DE LA CRUZ Admission Status: ER Accout number: [id number] Admission Date: 03-30-2020 : 1935 Admission Diagnosis:GASTROINTESTINAL HEMORRHAGE, UNSPECIFIED Attending: KRISTIN JO Current LOS: 8 Anticipated DC Date: Planned Disposition: Home with Home Health Primary Insurance: [employer] ADV Discharge Planning Comments: CM called Myrna (DTR) at [phone] about dc plan. Myrna states the patient lives with the pt grand daughter. CM instructed that the patient will require 24 hour care. Myrna states she will not allow her mother to go into a home. Myrna states she will speak with the rest of the family about hospice at home. Myrna would like CM to call her tomorrow with the decision about hospice care. Uma Melgoza MSN,RN,CM Special Education Resource Teacher: Uma Melgoza DCP- Discharge Planning Updated by [email or web address]: Mague Harding on 04/01/20 12:[address] Patient Name: WILFRID DE LA CRUZ Admission Status: ER Accout number: [id number] Admission Date: 03-30-2020 : 1935 Admission Diagnosis:GASTROINTESTINAL HEMORRHAGE, UNSPECIFIED Attending: KRISTIN JO Current LOS: 2 Anticipated DC Date: Planned Disposition: Home with Home Health Primary Insurance: [employer] ADV Discharge Planning Comments: CM called patient over the phone and spoke with patient to complete initial dc planning assessment. CM educated patient on the CM role and verbal consent given by patient to complete assessment. Patient lives at home where her granddaughter and her kids live with her. At discharge patient plans to return home and feels this is a safe discharge. CM discussed availability of home health, rehab services, and medical equipment. She is current with [facility] in [place] and wants to continue to use them. She stated that she is independent with her care at home. She has a walker, WC, cane, BSC, cane and shower chair, but does not need to use any of those at this time. Patient denied known discharge needs at this time. CM will continue to follow and will assist as needed with dc plans/needs. Special Education Resource Teacher: Mague Harding [facility] - Discharge Planning Initial Assessment Updated by [email or web address]: Mague Harding on 04/01/20 1:16 pm * Is the patient Alert and Oriented? Yes * PCP LUIS ALFREDO * Pharmacy [facility] IN [place] * Preadmission Environment Home with Family * ADLs Independent * Equipment Bedside Commode Cane Rolling Walker Shower Chair Walker Wheelchair * List name and contact numbers for known caregivers / representatives who currently or will assist patient after discharge: BEATRIZ ( GRAND DAUGHTER) [phone] * Verbal permission to speak to the caregivers and representatives has been obtained from the patient. No * Community resources currently utilized Home Health * Please name any agencies selected above. [facility] IN [place] * Additional services required to return to the preadmission environment? No * Can the patient safely return to the preadmission environment? Yes * Has this patient been hospitalized within the prior 30 days at any hospital? Yes Last DP export: 04/08/20 9:20 a Patient Name: WILFRID DE LA CRUZ Page 50255 at 1147 All edits/amendments must be made on the electronic document DICTATION DATE: 04/08/20 1146 TOOL DRESSER: OSWALD 04/08/20 114 RPT#: [id number] DC DATE: STATUS: ADM IN [facility] [address] [place] [address] END OF REPORT
[2020-04-08 12:44] VITALS: BP 141/66
--- NOTE | 2020-04-08 15:27 | NUR ---
PCT ASSISTED PT WITH BEDBATH AND LINEN CHANGE. OSTOMY APPLIANCE CHANGED DUE TO LEAKAGE. SITTING UP IN BED, SNACK BROUGHT TO ROOM.
--- NOTE | 2020-04-08 19:30 | NUR ---
PT IN BED, AAO X 2, RESP EVEN AND UNLABORED, NO DISTRESS NOTED, CL IN REACH, SR UP X 2.
[2020-04-08 20:00] VITALS: BP 126/65
[2020-04-09 04:00] VITALS: BP 105/45
[2020-04-09 05:26] LABS: BASOPHILS 0 % (0-2); EOSINOPHILS 0.7 % (0-7); HEMATOCRIT 26.6 % (36.0-48.0); HEMOGLOBIN 8.5 g/dL (12-16); IMMATURE GRANULOCYTES 0.7 % (0-5); MCH 29.5 pg (26.0-34.0); MCV 92.4 fL (80.0-100.0); MONOCYTES 10.1 % (2-11); NEUTROPHILS 72.5 % (40-80); PLATELET COUNT 110 10x3/uL (130-400); RBC 2.88 10x6/uL (4.00-5.40); RDW 14.3 % (11.5-14.5)
[2020-04-09 05:29] LABS: WBC 5.6 10x3/uL (4.8-10.8)
[2020-04-09 05:43] LABS: ALBUMIN 1.7 g/dL (3.4-5.0); ANION GAP 6.9 mmol/L (8-16); BILIRUBIN - TOTAL 0.27 mg/dL (0.2-1.3); CARBON DIOXIDE 30.3 mmol/L (21.0-32.0); CREATININE - SERUM 2.3 mg/dL (0.6-1.3); MAGNESIUM - SERUM 1.6 mg/dL (1.8-2.4); PHOSPHOROUS 2.7 mg/dL (2.5-4.9); POTASSIUM - SERUM 3.2 mmol/L (3.5-5.1); PROTEIN - SERUM 3.4 g/dL (6.4-8.2)
[2020-04-09 05:47] LABS: CALCIUM 6.9 mg/dL (8.5-10.1)
[2020-04-09 08:13] VITALS: BP 134/56
[2020-04-09] MEDS ORDERED: ZOFRAN ODT4 MG/UDTAB PO (11:03)
--- NOTE | 2020-04-09 11:24 | MORECARE ---
CASE MANAGEMENT DISCHARGE SUMMARY PATIENT: WILFRID DE LA CRUZ UNIT: [id number] ADM DATE: 03/30/20 AGE: 84 : 33 SEX: F ROOM/BED: D.2131 AUTHOR: ROSIE TEJADA PHYSICIAN: REFERRING PHYSICIAN: KRISTIN CARTER MD DATE OF SERVICE: 04/09/20 Discharge Plan Patient Name: WILFRID DE LA CRUZ Facility: [facility]:[place] : 1935 Planned Disposition: Home with Home Health Anticipated Discharge Date: Discharge Date: Expected LOS: Initial Reviewer: [email or web address] Initial Review Date: 03/30/2020 Generated: 04/09/20 12:23 pm Comments DCP- Discharge Planning Updated by [email or web address]: Uma Melgoza on 04/09/20 10:[address] Cm spoke with Myrna at [phone] about pending DC to [facility]. Myrna states she will stay with her mother until the primary progressive care unit registered nurse can sit with her. The patient will reside at [address] [place] [address] and will require EMS transportation. [facility] will need to be notified at [phone] when pt leaves so they may coordinate admission/care. Uma Melgoza DCP- Discharge Planning Updated by [email or web address]: Uma Melgoza on 04/07/20 2:[address] Patient Name: WILFRID DE LA CRUZ Admission Status: ER Accout number: [id number] Admission Date: 03-30-2020 : 1935 Admission Diagnosis:GASTROINTESTINAL HEMORRHAGE, UNSPECIFIED Attending: KRISTIN JO Current LOS: 8 Anticipated DC Date: Planned Disposition: Home with Home Health Primary Insurance: [employer] MEDICARE ADV Discharge Planning Comments: CM called Myrna (DTR) at [phone] about dc plan. Myrna states the patient lives with the pt grand daughter. CM instructed that the patient will require 24 hour care. Myrna states she will not allow her mother to go into a home. Myrna states she will speak with the rest of the family about hospice at home. Myrna would like CM to call her tomorrow with the decision about hospice care. Uma Melgoza MSN,RN,CM Ice Cream Shop Associate: Uma Melgoza DCP- Discharge Planning Updated by [email or web address]: Mague Harding on 04/01/20 12:[address] Patient Name: WILFRID DE LA CRUZ Admission Status: ER Accout number: [id number] Admission Date: 03-30-2020 : 1935 Admission Diagnosis:GASTROINTESTINAL HEMORRHAGE, UNSPECIFIED Attending: KRISTIN JO Current LOS: 2 Anticipated DC Date: Planned Disposition: Home with Home Health Primary Insurance: [employer] MEDICARE ADV Discharge Planning Comments: CM called patient over the phone and spoke with patient to complete initial dc planning assessment. CM educated patient on the CM role and verbal consent given by patient to complete assessment. Patient lives at home where her granddaughter and her kids live with her. At discharge patient plans to return home and feels this is a safe discharge. CM discussed availability of home health, rehab services, and medical equipment. She is current with [facility] in [place] and wants to continue to use them. She stated that she is independent with her care at home. She has a walker, WC, cane, BSC, cane and shower chair, but does not need to use any of those at this time. Patient denied known discharge needs at this time. CM will continue to follow and will assist as needed with dc plans/needs. Ice Cream Shop Associate: Mague Harding DCPIA - Discharge Planning Initial Assessment Updated by [email or web address]: Mague Meaghan on 04/01/20 1:16 pm * Is the patient Alert and Oriented? Yes * PCP LUIS ALFREDO * Pharmacy [facility] IN [place] * Preadmission Environment Home with Family * ADLs Independent * Equipment Bedside Commode Cane Rolling Walker Shower Chair Walker Wheelchair * List name and contact numbers for known caregivers / representatives who currently or will assist patient after discharge: BEATRIZ ( GRAND DAUGHTER) [phone] * Verbal permission to speak to the caregivers and representatives has been obtained from the patient. No * Community resources currently utilized Home Health * Please name any agencies selected above. [facility] IN [place] * Additional services required to return to the preadmission environment? No * Can the patient safely return to the preadmission environment? Yes * Has this patient been hospitalized within the prior 30 days at any hospital? Yes Last DP export: 04/08/20 10:47 a Patient Name: WILFRID DE LA CRUZ Page [id number] at 1124 All edits/amendments must be made on the electronic document DICTATION DATE: 04/09/201122 PUBLIC SAFETY DIRECTOR: OSWALD 04/09/201122 RPT#: [id number] DC DATE: STATUS: ADM IN [facility] [address] [place] [address] END OF REPORT
[2020-04-09 12:14] VITALS: BP 136/64
--- NOTE | 2020-04-09 13:59 | NUR ---
0700-LYING IN BED AWAKE, ALERT, CONFUSED. NO DISTRESS NOTED. 0900-ALL AM MEDS GIVEN/ORDER. NO DISTRESS NOTED. 1100--MEDS ADMINISTERED/ORDER, PT TOLERATED ALL WELL. 1300-CVL SUTURES REMOVED--THEN CVL REMOVED--CLEANSED AREA W/BETADINE--BANDAGE APPLIED. PT TOLERATED ALL WELL. 1359-PT DC'D/EMS TO HOME/STRETCHER IN GOOD STABLE CONDITION. ALL BELONGINGS BAGGED UP AND GIVEN TO LINOLEUM TILE LAYER INCLUDING ALL DC PAPERWORK. [facility] THEN CONTACTED SPOKE TO [facility]--ALL DC PAPERWORK GIVEN TO CLEANER AND POLISHER TO BE FAXED OVER TO [facility].
--- NOTE | 2020-04-09 18:25 | MORECARE ---
CASE MANAGEMENT DISCHARGE SUMMARY PATIENT: WILFRID DE LA CRUZ UNIT: [id number] ADM DATE: 03/30/20 AGE: 84 : 33 SEX: F ROOM/BED: D.2131 AUTHOR: ROSIE TEJADA PHYSICIAN: REFERRING PHYSICIAN: KRISTIN CARTER MD DATE OF SERVICE: 04/09/20 Discharge Plan Patient Name: WILFRID DE LA CRUZ Facility: [facility]:[place] : 1935 Planned Disposition: Home with Home Health Anticipated Discharge Date: Discharge Date: 04/09/2020 Expected LOS: Initial Reviewer: [email or web address] Initial Review Date: 03/30/2020 Generated: 04/09/20 7:24 pm Comments DCP- Discharge Planning Updated by [email or web address]: Uma Melgoza on 04/09/20 10:[address] Cm spoke with Myrna at [phone] about pending DC to [facility]. Myrna states she will stay with her mother until the primary healthcare consultant can sit with her. The patient will reside at [address] [place] [address] and will require EMS transportation. [facility] will need to be notified at [phone] when pt leaves so they may coordinate admission/care. Uma Melgoza DCP- Discharge Planning Updated by [email or web address]: Uma Melgoza on 04/07/20 2:[address] Patient Name: WILFRID DE LA CRUZ Admission Status: ER Accout number: [id number] Admission Date: 03-30-2020 : 1935 Admission Diagnosis:GASTROINTESTINAL HEMORRHAGE, UNSPECIFIED Attending: KRISTIN JO Current LOS: 8 Anticipated DC Date: Planned Disposition: Home with Home Health Primary Insurance: [employer] MEDICARE ADV Discharge Planning Comments: CM called Myrna (DTR) at [phone] about dc plan. Myrna states the patient lives with the pt grand daughter. CM instructed that the patient will require 24 hour care. Myrna states she will not allow her mother to go into a home. Myrna states she will speak with the rest of the family about hospice at home. Myrna would like CM to call her tomorrow with the decision about hospice care. Uma Melgoza MSN,RN,CM Elevator Pilot: Uma Melgoza DCP- Discharge Planning Updated by [email or web address]: Mague Meaghan on 04/01/20 12:[address] Patient Name: WILFRID DE LA CRUZ Admission Status: ER Accout number: [id number] Admission Date: 03-30-2020 : 1935 Admission Diagnosis:GASTROINTESTINAL HEMORRHAGE, UNSPECIFIED Attending: KRISTIN JO Current LOS: 2 Anticipated DC Date: Planned Disposition: Home with Home Health Primary Insurance: [employer] MEDICARE ADV Discharge Planning Comments: CM called patient over the phone and spoke with patient to complete initial dc planning assessment. CM educated patient on the CM role and verbal consent given by patient to complete assessment. Patient lives at home where her granddaughter and her kids live with her. At discharge patient plans to return home and feels this is a safe discharge. CM discussed availability of home health, rehab services, and medical equipment. She is current with [facility] in [place] and wants to continue to use them. She stated that she is independent with her care at home. She has a walker, WC, cane, BSC, cane and shower chair, but does not need to use any of those at this time. Patient denied known discharge needs at this time. CM will continue to follow and will assist as needed with dc plans/needs. Elevator Pilot: Mague Harding DCPIA - Discharge Planning Initial Assessment Updated by [email or web address]: Mague Meaghan on 04/01/20 1:16 pm * Is the patient Alert and Oriented? Yes * PCP LUIS ALFREDO * Pharmacy [facility] IN [place] * Preadmission Environment Home with Family * ADLs Independent * Equipment Bedside Commode Cane Rolling Walker Shower Chair Walker Wheelchair * List name and contact numbers for known caregivers / representatives who currently or will assist patient after discharge: BEATRIZ ( GRAND DAUGHTER) [phone] * Verbal permission to speak to the caregivers and representatives has been obtained from the patient. No * Community resources currently utilized Home Health * Please name any agencies selected above. [facility] IN [place] * Additional services required to return to the preadmission environment? No * Can the patient safely return to the preadmission environment? Yes * Has this patient been hospitalized within the prior 30 days at any hospital? Yes Last DP export: 10/8/20 10:24 a Patient Name: WILFRID DE LA CRUZ Page 53876 at 1825 All edits/amendments must be made on the electronic document DICTATION DATE: 04/09/201824 CLEATER: OSWALD 04/09/201824 RPT#: [id number] DC DATE:04/09/20 STATUS: DIS IN [facility] [address] [place] [address] END OF REPORT
--- NOTE | 2020-04-13 08:54 | MORECARE ---
CASE MANAGEMENT DISCHARGE SUMMARY PATIENT: WILFRID DE LA CRUZ UNIT: [id number] ADM DATE: 03/30/20 AGE: 84 : 33 SEX: F ROOM/BED: D.2131 AUTHOR: ROSIE TEJADA PHYSICIAN: REFERRING PHYSICIAN: KRISTIN CARTER MD DATE OF SERVICE: 04/13/20 Discharge Plan Patient Name: WILFRID DE LA CRUZ Facility: [facility]:[place] : 1935 Planned Disposition: Home with Home Health Anticipated Discharge Date: Discharge Date: 04/09/2020 Expected LOS: Initial Reviewer: [email or web address] Initial Review Date: 03/30/2020 Generated: 04/13/20 9:53 am Comments DCP- Discharge Planning Updated by [email or web address]: Uma Melgoza on 04/09/20 10:[address] Cm spoke with Myrna at [phone] about pending DC to [facility]. Myrna states she will stay with her mother until the primary home health care respiratory therapist can sit with her. The patient will reside at [address] [place] [address] and will require EMS transportation. [facility] will need to be notified at [phone] when pt leaves so they may coordinate admission/care. Uma Melgoza DCP- Discharge Planning Updated by [email or web address]: Uma Melgoza on 04/07/20 2:[address] Patient Name: WILFRID DE LA CRUZ Admission Status: ER Accout number: [id number] Admission Date: 03-30-2020 : 1935 Admission Diagnosis:GASTROINTESTINAL HEMORRHAGE, UNSPECIFIED Attending: KRISTIN JO Current LOS: 8 Anticipated DC Date: Planned Disposition: Home with Home Health Primary Insurance: [employer] MEDICARE ADV Discharge Planning Comments: CM called Myrna (DTR) at [phone] about dc plan. Myrna states the patient lives with the pt grand daughter. CM instructed that the patient will require 24 hour care. Myrna states she will not allow her mother to go into a home. Myrna states she will speak with the rest of the family about hospice at home. Myrna would like CM to call her tomorrow with the decision about hospice care. Uma Melgoza MSN,RN,CM Photographic Plate Maker: Uma Melgoza DCP- Discharge Planning Updated by [email or web address]: Mague Meaghan on 04/01/20 12:[address] Patient Name: WILFRID DE LA CRUZ Admission Status: ER Accout number: [id number] Admission Date: 03-30-2020 : 1935 Admission Diagnosis:GASTROINTESTINAL HEMORRHAGE, UNSPECIFIED Attending: KRISTIN JO Current LOS: 2 Anticipated DC Date: Planned Disposition: Home with Home Health Primary Insurance: [employer] MEDICARE ADV Discharge Planning Comments: CM called patient over the phone and spoke with patient to complete initial dc planning assessment. CM educated patient on the CM role and verbal consent given by patient to complete assessment. Patient lives at home where her granddaughter and her kids live with her. At discharge patient plans to return home and feels this is a safe discharge. CM discussed availability of home health, rehab services, and medical equipment. She is current with [facility] in [place] and wants to continue to use them. She stated that she is independent with her care at home. She has a walker, WC, cane, BSC, cane and shower chair, but does not need to use any of those at this time. Patient denied known discharge needs at this time. CM will continue to follow and will assist as needed with dc plans/needs. Photographic Plate Maker: Mague Harding DCPIA - Discharge Planning Initial Assessment Updated by [email or web address]: Mague Meaghan on 04/01/20 1:16 pm * Is the patient Alert and Oriented? Yes * PCP LUIS ALFREDO * Pharmacy [facility] IN [place] * Preadmission Environment Home with Family * ADLs Independent * Equipment Bedside Commode Cane Rolling Walker Shower Chair Walker Wheelchair * List name and contact numbers for known caregivers / representatives who currently or will assist patient after discharge: BEATRIZ ( GRAND DAUGHTER) [phone] * Verbal permission to speak to the caregivers and representatives has been obtained from the patient. No * Community resources currently utilized Home Health * Please name any agencies selected above. [facility] IN [place] * Additional services required to return to the preadmission environment? No * Can the patient safely return to the preadmission environment? Yes * Has this patient been hospitalized within the prior 30 days at any hospital? Yes Last DP export: 10/8/20 5:25 p Patient Name: WILFRID DE LA CRUZ Page 64176 at 0854 All edits/amendments must be made on the electronic document DICTATION DATE: 04/13/20852 APPLICATIONS ENGINEERING MANAGER: OSWALD 04/13/20852 RPT#: [id number] DC DATE:04/09/20 STATUS: DIS IN [facility] [address] [place] [address] END OF REPORT
== END 2020-04-09 14:03 | disposition home health service (06) | DRG 393 ==
LOC: D.ER 09:05 → D.EDHOLD 15:35 → D.M2 15:35 → D.MS 15:35 → D.M2 04-03 17:08
PROVIDERS: Emergency Medicine; Family Medicine; ADMIT Family Medicine Adult Medicine; ATTEND Family Medicine Adult Medicine
PROC: 02HV33Z Insertion of Infusion Device into Superior Vena Cava, Percutaneous Approach (ICD-10-PCS; principal; 2020-04-05)
DX: K43.3 Parastomal hernia with obstruction, without gangrene (principal); I21.A1 Myocardial infarction type 2; U07.1 COVID-19; K92.2 Gastrointestinal hemorrhage, unspecified; K56.7 Ileus, unspecified; N17.9 Acute kidney failure, unspecified; I12.0 Hypertensive chronic kidney disease with stage 5 chronic kidney disease or end stage renal disease; N18.5 Chronic kidney disease, stage 5; E87.5 Hyperkalemia; I25.10 Atherosclerotic heart disease of native coronary artery without angina pectoris; D63.1 Anemia in chronic kidney disease; E86.0 Dehydration; R16.0 Hepatomegaly, not elsewhere classified